=== PATIENT | female | born 1945 | race Caucasian/White ===

== ENCOUNTER → 2017-02-03 | Outpatient (CLI) | payer MEDICARE ==
[~2017-02-03] MED LIST: ADV500INH INH; ASPI1TAB PO; ATOR40TA PO; CALC600T27 PO; CITA20TA4 PO; FELO5TAB3 PO; FOLI1TAB2 PO; HYDR25TAB PO; INSULANT SC; LEVO25TA5 PO; LOSA100T37 PO; PROA1AER INH; RANI150C PO; VICT18IN SC
[2017-02-03 11:09] LABS: ALBUMIN 3.4 GM/DL (3.2-5.2); ALBUMIN/GLOBULIN RATIO 0.94 (1.00-1.93); ALKALINE PHOSPHATASE 56 U/L (45-117); ALT/SGPT 19 U/L (12-78); ANION GAP 10 MEQ/L (8-16); AST/SGOT 15 U/L (15-37); BILIRUBIN,TOTAL 0.4 MG/DL (0.2-1.0); BLOOD UREA NITROGEN 20 MG/DL (7-18); CALCIUM LEVEL 9.2 MG/DL (8.8-10.2); CARBON DIOXIDE LEVEL 27 MEQ/L (21-32); CHLORIDE LEVEL 102 MEQ/L (98-107); CREATININE FOR GFR 0.78 MG/DL (0.55-1.02); FREE T4 0.97 NG/DL (0.76-1.46); GLOMERULAR FILTRATION RATE > 60.0 (>39); GLUCOSE, FASTING 58 MG/DL (83-110); POTASSIUM SERUM 4.4 MEQ/L (3.5-5.1); SODIUM LEVEL 139 MEQ/L (136-145)
== END ==
LOC: M LAB 09:48
PROVIDERS: ATTEND Nurse Practitioner Family
DX: E11.9 Type 2 diabetes mellitus without complications (principal); E03.9 Hypothyroidism, unspecified; E55.9 Vitamin D deficiency, unspecified

== ENCOUNTER → 2017-02-12 | Day surgery (SDC) | payer MEDICARE ==
[~2017-02-12] VITALS: Ht 154.9 cm; Wt 122.5 kg
[~2017-02-12] MED LIST changes: +ACETAMINOPHEN 325 MG TAB PO PRN; +ACETYLCHOLINE OPHTH SOLN 1% 2ML As Ordered ONE; +BALANCED SALT IRRIGATION SOLUTION 500ML BAG (FOR OR EYE MACHINE) As Ordered ONE; +CEFUROXIME 1MG/0.1ML INTRACAMERAL INJ As Ordered ONE; +CYCLOPENTOLATE 2% OPHTH SOLN OS ONE; +D5W/0.2% SODIUM CHLORIDE 250 ML IV SCH; +HEALON DUET (HEALON 10MG/ML 0.55ML & HEALON ENDOCOAT 30MG/ML 0.85ML) As Ordered ONE; +KETOROLAC 0.5% OPHTH SOLN OS ONE; +LIDOCAINE 1% SDV 5 ML VIAL As Ordered ONE; +LIDOCAINE 4% INJ 5 ML AMP OU ONE; +MIDAZOLAM INJ 2 MG/2 ML VIAL (J2250) As Ordered ONE; +OFLOXACIN 0.3 % (OCUFLOX) OPTH SOL 5ML OS ONE; +PHENYLEPHRINE 2.5% OPHTH SOL 2ML OS ONE; +POVIDONE-IODINE 5% OPHTH PREP SOL 30ML As Ordered ONE; +PROPARACAINE 0.5% OPHTH SOL 15ML OS PRN; +TRIMETHOBENZAMIDE 300 MG CAP PO PRN; +TROPICAMIDE 1% OPHTH SOLN 2 ML OS ONE; +fentaNYL 100 MCG/2 ML INJECTION (J3010) As Ordered ONE
--- NOTE | 2017-02-12 11:45 | RO ---
DATE OF PROCEDURE: 02/12/2017 PREPROCEDURE DIAGNOSIS: Age related nuclear cataract left eye. POSTPROCEDURE DIAGNOSIS: Age related nuclear cataract left eye. PROCEDURE: Phacoemulsification and posterior chamber intraocular lens implantation left eye. The lens used was [id number], 21.5 Diopter. SURGEON: Kath Browning MD PROPERTY AND EQUIPMENT CLERK: ANESTHESIA: Topical with sedation. DESCRIPTION OF PROCEDURE: The patient was prepped and draped in the usual fashion. A lid speculum was placed between the lids. The eye was fixated. A stab incision was made to the anterior chamber, and 1% non-preserved lidocaine was instilled. Then, viscoelastic was instilled. The eye was re-fixated. A 2.75 mm sapphire keratome was used to make a clear corneal temporal limbal incision. Capsulorrhexis was begun with a 30-gauge bent needle and then carried out in a circular fashion with capsulorrhexis forceps. The lens was hydrodissected, and then the phacoemulsification unit was used to make a groove in the nucleus in two meridians. The nucleus was then cracked into four quadrants. Each quadrant was removed with the phacoemulsification unit. Any remaining cortex was removed with the irrigation and aspiration (I and A) unit. Capsular bag was refilled with viscoelastic. A posterior chamber intraocular lens was placed in the capsular bag without difficulty. Any remaining viscoelastic was removed with the I and A unit. The wound was hydrated, and Miochol and cefuroxime were instilled into the anterior chamber. The patient tolerated the procedure well and went to the recovery room in stable condition.
[2017-02-12 12:15] VITALS: BP 128/59
== END | disposition home or self-care (01) ==
LOC: M SDC 08:54
PROVIDERS: ATTEND Ophthalmology
DX: H25.12 Age-related nuclear cataract, left eye (principal); I25.2 Old myocardial infarction; I10 Essential (primary) hypertension; E78.2 Mixed hyperlipidemia; E11.9 Type 2 diabetes mellitus without complications; E03.9 Hypothyroidism, unspecified; R06.02 Shortness of breath; J43.9 Emphysema, unspecified; M15.9 Polyosteoarthritis, unspecified; K21.9 Gastro-esophageal reflux disease without esophagitis; J45.909 Unspecified asthma, uncomplicated; Z90.710 Acquired absence of both cervix and uterus; Z87.891 Personal history of nicotine dependence; Z88.2 Allergy status to sulfonamides; Z79.899 Other long term (current) drug therapy; Z79.82 Long term (current) use of aspirin
CPT/HCPCS: 66984; J2250; J3010; V2632

== ENCOUNTER → 2017-04-02 | Day surgery (SDC) | payer MEDICARE, MEDICAID ==
[~2017-04-02] VITALS: Ht 154.9 cm; Wt 119.3 kg
[~2017-04-02] MED LIST changes: +ACETYLCHOLINE OPHTH SOLN 1% 2ML (MIOCHOL-E) As Ordered ONE; -ACETYLCHOLINE OPHTH SOLN 1% 2ML As Ordered ONE; -BALANCED SALT IRRIGATION SOLUTION 500ML BAG (FOR OR EYE MACHINE) As Ordered ONE; +CYCLOPENTOLATE 2% OPHTH SOLN 2ML BTL OD ONE; -CYCLOPENTOLATE 2% OPHTH SOLN OS ONE; -D5W/0.2% SODIUM CHLORIDE 250 ML IV SCH; +GABA-282 PO; +KETOROLAC 0.5% OPHTH SOLN OD ONE; -KETOROLAC 0.5% OPHTH SOLN OS ONE; +LR 500 ML IV SCH; +OFLOXACIN 0.3 % (OCUFLOX) OPTH SOL 5ML OD ONE; -OFLOXACIN 0.3 % (OCUFLOX) OPTH SOL 5ML OS ONE; +PHENYLEPHRINE 2.5% OPHTH SOL 2ML OD ONE; -PHENYLEPHRINE 2.5% OPHTH SOL 2ML OS ONE; +PROPARACAINE 0.5% OPHTH SOL 15ML OD PRN; -PROPARACAINE 0.5% OPHTH SOL 15ML OS PRN; +TOUJ1.2I SC; -TROPICAMIDE 1% OPHTH SOLN 2 ML OS ONE; +TROPICAMIDE 1% OPHTH SOLN 2ML OD ONE
--- NOTE | 2017-04-02 13:27 | RO ---
DATE OF PROCEDURE: 04/02/2017 PREPROCEDURE DIAGNOSIS: Age related nuclear cataract, right eye. POSTPROCEDURE DIAGNOSIS: Age related nuclear cataract, right eye. PROCEDURE: Phacoemulsification and posterior chamber intraocular lens implantation, right eye. Lens used was a [id number], 22.0 diopter. SURGEON: Kath Browning MD OFFICE CLINICIAN: ANESTHESIA: Topical with sedation. DESCRIPTION OF PROCEDURE: The patient was prepped and draped in the usual fashion. A lid speculum was placed between the lids. The eye was fixated. A stab incision was made to the anterior chamber, and 1% non-preserved lidocaine was instilled. Then, viscoelastic was instilled. The eye was re-fixated. A 2.75 mm sapphire keratome was used to make a clear corneal temporal limbal incision. Capsulorrhexis was begun with a 30-gauge bent needle and then carried out in a circular fashion with capsulorrhexis forceps. The lens was hydrodissected, and then the phacoemulsification unit was used to make a groove in the nucleus in two meridians. The nucleus was then cracked into four quadrants. Each quadrant was removed with the phacoemulsification unit. Any remaining cortex was removed with the irrigation and aspiration (I and A) unit. Capsular bag was refilled with viscoelastic. A posterior chamber intraocular lens was placed in the capsular bag without difficulty. Any remaining viscoelastic was removed with the I and A unit. The wound was hydrated, and Miochol and cefuroxime were instilled into the anterior chamber. The patient tolerated the procedure well and went to the recovery room in stable condition.
[2017-04-02 13:40] VITALS: BP 136/93
== END | disposition home or self-care (01) ==
LOC: M SDC 11:28
PROVIDERS: ATTEND Ophthalmology
DX: H25.11 Age-related nuclear cataract, right eye (principal); I25.10 Atherosclerotic heart disease of native coronary artery without angina pectoris; J44.9 Chronic obstructive pulmonary disease, unspecified; E78.5 Hyperlipidemia, unspecified; I10 Essential (primary) hypertension; F41.1 Generalized anxiety disorder; R35.0 Frequency of micturition; M50.220 Other cervical disc displacement, mid-cervical region, unspecified level; M51.34 Other intervertebral disc degeneration, thoracic region; M51.37 Other intervertebral disc degeneration, lumbosacral region; M15.0 Primary generalized (osteo)arthritis; E03.9 Hypothyroidism, unspecified; E55.9 Vitamin D deficiency, unspecified; E66.01 Morbid (severe) obesity due to excess calories; I25.2 Old myocardial infarction; E11.40 Type 2 diabetes mellitus with diabetic neuropathy, unspecified; Z88.2 Allergy status to sulfonamides; Z79.899 Other long term (current) drug therapy; Z79.4 Long term (current) use of insulin; Z79.82 Long term (current) use of aspirin; Z90.710 Acquired absence of both cervix and uterus
CPT/HCPCS: 66984; J2250; J3010; V2632

== ENCOUNTER → 2017-04-15 | Outpatient (CLI) | payer MEDICARE, MEDICAID ==
[~2017-04-15] MED LIST changes: -ACETAMINOPHEN 325 MG TAB PO PRN; -ACETYLCHOLINE OPHTH SOLN 1% 2ML (MIOCHOL-E) As Ordered ONE; -ATOR40TA PO; +ATOR40TA75 PO; -CEFUROXIME 1MG/0.1ML INTRACAMERAL INJ As Ordered ONE; -CYCLOPENTOLATE 2% OPHTH SOLN 2ML BTL OD ONE; +FELO5TAB PO; -FELO5TAB3 PO; -FOLI1TAB2 PO; +FOLI1TAB4 PO; -HEALON DUET (HEALON 10MG/ML 0.55ML & HEALON ENDOCOAT 30MG/ML 0.85ML) As Ordered ONE; -KETOROLAC 0.5% OPHTH SOLN OD ONE; -LIDOCAINE 1% SDV 5 ML VIAL As Ordered ONE; -LIDOCAINE 4% INJ 5 ML AMP OU ONE; -LOSA100T37 PO; +LOSA100T5 PO; -LR 500 ML IV SCH; -MIDAZOLAM INJ 2 MG/2 ML VIAL (J2250) As Ordered ONE; -OFLOXACIN 0.3 % (OCUFLOX) OPTH SOL 5ML OD ONE; -PHENYLEPHRINE 2.5% OPHTH SOL 2ML OD ONE; -POVIDONE-IODINE 5% OPHTH PREP SOL 30ML As Ordered ONE; -PROA1AER INH; +PROAAER10 INH; -PROPARACAINE 0.5% OPHTH SOL 15ML OD PRN; -TRIMETHOBENZAMIDE 300 MG CAP PO PRN; -TROPICAMIDE 1% OPHTH SOLN 2ML OD ONE; -fentaNYL 100 MCG/2 ML INJECTION (J3010) As Ordered ONE
--- NOTE | 2017-04-15 16:11 | REP ---
Left lower extremity Duplex Doppler venous ultrasound: Real time compression and duplex Doppler interrogation of the left lower extremity deep venous system is performed. The left common femoral, superficial femoral and popliteal veins are fully compressible with transducer pressure and demonstrate normal spontaneous and phasic flow, without evidence of deep venous thrombosis. Impression: No evidence of deep venous thrombosis of the left lower extremity femoral popliteal venous system. Signed by Michael Blandon MD 04/15/2017 04:02 P
--- NOTE | 2017-04-16 03:09 | REP ---
Clinical: Chest pain and lower extremity edema . Comparison: 12/27/2009 . Technique: PA and lateral. Findings: The mediastinum and cardiac silhouette are within normal limits. Evidence of prior sternotomy and CABG noted. The lung moore are clear and without acute consolidation, effusion, or pneumothorax. The skeletal structures are intact and normal. Impression: 1. No acute cardiopulmonary process. Signed by Ricki Baldwin MD 04/16/2017 03:00 A
== END ==
LOC: M RAD 15:33
PROVIDERS: ATTEND Nurse Practitioner Family
DX: R60.0 Localized edema (principal); R06.02 Shortness of breath; E11.49 Type 2 diabetes mellitus with other diabetic neurological complication; Z79.4 Long term (current) use of insulin; Z79.82 Long term (current) use of aspirin; Z79.899 Other long term (current) drug therapy
CPT/HCPCS: 71020; 82948; 93971; G0463

== ENCOUNTER → 2017-05-06 | Outpatient (CLI) | payer MEDICARE, MEDICAID ==
--- NOTE | 2017-05-06 13:46 | REPMRS ---
Patient History The patient states she had a clinical breast exam in 04/2017. Family history of prostate cancer in father at age 75. Digital Woman Screen Mammo: May 06, 2017 - Exam #: [id number] Bilateral CC and MLO view(s) were taken. Technologist: Kath Kauffman Technologist Prior study comparison: November 22, 2014, digital woman screen mammo performed at [facility]. December 07, 2013, bilateral digital mammo screening bilat, performed at [facility]. FINDINGS: There are scattered fibroglandular densities. There has been no change in the appearance of the mammogram from the prior studies. There is a mild amount of residual fibroglandular tissue which is fairly symmetric. There is no interval development of dominant mass, architectural distortion, or clustered microcalcification suggestive of malignancy. ASSESSMENT: BI-RADS/ACR category 1 mammogram. Negative. Recommendation Routine screening mammogram in 1 year (for women over age 40). This mammogram was interpreted with the aid of an FDA-approved computer-aided dectection system. Electronically Signed By: Michael Blandon MD 05/06/17 [id number]
== END ==
LOC: M WHC 11:14
PROVIDERS: ATTEND Nurse Practitioner Women's Health
DX: Z12.31 Encounter for screening mammogram for malignant neoplasm of breast (principal)
CPT/HCPCS: G0202; G0463

== ENCOUNTER → 2017-05-13 | Outpatient (CLI) | payer MEDICARE, MEDICAID ==
[2017-05-13 10:53] LABS: ALBUMIN 3.6 GM/DL (3.2-5.2); ALBUMIN/GLOBULIN RATIO 0.92 (1.00-1.93); ALKALINE PHOSPHATASE 58 U/L (45-117); ALT/SGPT 21 U/L (12-78); ANION GAP 8 MEQ/L (8-16); AST/SGOT 12 U/L (15-37); BILIRUBIN,TOTAL 0.5 MG/DL (0.2-1.0); BLOOD UREA NITROGEN 21 MG/DL (7-18); CALCIUM LEVEL 9.1 MG/DL (8.8-10.2); CARBON DIOXIDE LEVEL 27 MEQ/L (21-32); CHLORIDE LEVEL 102 MEQ/L (98-107); CREATININE FOR GFR 0.86 MG/DL (0.55-1.02); GLOMERULAR FILTRATION RATE > 60.0 (>39); GLUCOSE, FASTING 70 MG/DL (83-110); POTASSIUM SERUM 4.1 MEQ/L (3.5-5.1); SODIUM LEVEL 137 MEQ/L (136-145); TOTAL PROTEIN 7.5 GM/DL (6.4-8.2)
== END ==
LOC: M LAB 09:50
PROVIDERS: ATTEND Nurse Practitioner Family
DX: E11.8 Type 2 diabetes mellitus with unspecified complications (principal)

== ENCOUNTER → 2017-08-20 | Outpatient (CLI) | payer MEDICARE, MEDICAID ==
[2017-08-20 10:38] LABS: ALBUMIN 3.4 GM/DL (3.2-5.2); ALBUMIN/GLOBULIN RATIO 0.94 (1.00-1.93); ALKALINE PHOSPHATASE 47 U/L (45-117); ALT/SGPT 25 U/L (12-78); ANION GAP 9 MEQ/L (8-16); AST/SGOT 15 U/L (15-37); BILIRUBIN,TOTAL 0.4 MG/DL (0.2-1.0); BLOOD UREA NITROGEN 20 MG/DL (7-18); CALCIUM LEVEL 9.1 MG/DL (8.8-10.2); CARBON DIOXIDE LEVEL 27 MEQ/L (21-32); CHLORIDE LEVEL 100 MEQ/L (98-107); CHOLESTEROL LEVEL 120 MG/DL (<200); CREATININE FOR GFR 0.88 MG/DL (0.55-1.02); FREE T4 1.02 NG/DL (0.76-1.46); GLOMERULAR FILTRATION RATE > 60.0 (>39); GLUCOSE, FASTING 160 MG/DL (83-110); POTASSIUM SERUM 4.1 MEQ/L (3.5-5.1); SODIUM LEVEL 136 MEQ/L (136-145); TRIGLYCERIDES LEVEL 136 MG/DL (<150)
== END ==
LOC: M LAB 09:17
PROVIDERS: ATTEND Nurse Practitioner Family
DX: E11.9 Type 2 diabetes mellitus without complications (principal)

== ENCOUNTER → 2018-01-30 | Outpatient (REF) | payer MEDICARE, MEDICAID | LOC: M SFHCPLAZ 13:10 | DX: R30.0 Dysuria (principal) | CPT/HCPCS: 87086 ==

== ENCOUNTER → 2018-02-26 | Outpatient (CLI) | payer MEDICARE, MEDICAID ==
[2018-02-26 10:16] LABS: ESTIMATED AVERAGE GLUCOSE 166 MG/DL (60-110); HEMOGLOBIN A1c 7.4 %
[2018-02-26 10:32] LABS: ALBUMIN 3.4 GM/DL (3.2-5.2); ALBUMIN/GLOBULIN RATIO 0.89 (1.00-1.93); ALKALINE PHOSPHATASE 46 U/L (45-117); ALT/SGPT 19 U/L (12-78); ANION GAP 6 MEQ/L (8-16); AST/SGOT 15 U/L (7-37); BILIRUBIN,TOTAL 0.3 MG/DL (0.2-1.0); BLOOD UREA NITROGEN 19 MG/DL (7-18); CARBON DIOXIDE LEVEL 30 MEQ/L (21-32); CHLORIDE LEVEL 104 MEQ/L (98-107); CREATININE FOR GFR 0.84 MG/DL (0.55-1.30); GLOMERULAR FILTRATION RATE > 60.0 (>39); GLUCOSE, FASTING 99 MG/DL (70-100); POTASSIUM SERUM 4.1 MEQ/L (3.5-5.1); SODIUM LEVEL 140 MEQ/L (136-145); TOTAL PROTEIN 7.2 GM/DL (6.4-8.2)
[2018-02-26 10:39] LABS: TOTAL 25(OH) VITAMIN D 55.2 NG/ML (30.0-100.0)
== END ==
LOC: M LAB 09:24
DX: E55.9 Vitamin D deficiency, unspecified (principal); E11.8 Type 2 diabetes mellitus with unspecified complications
CPT/HCPCS: 80053

== ENCOUNTER → 2018-05-07 | Outpatient (CLI) | payer MEDICARE, MEDICAID | LOC: M RAD 10:35 | DX: Z12.31 Encounter for screening mammogram for malignant neoplasm of breast (principal) | CPT/HCPCS: 77067 ==

== ENCOUNTER → 2018-05-27 | Outpatient (CLI) | payer MEDICARE, MEDICAID ==
[2018-05-27 10:38] LABS: ESTIMATED AVERAGE GLUCOSE 177 MG/DL (60-110); HEMOGLOBIN A1c 7.8 %
[2018-05-27 10:40] LABS: MALB URINE SIEMENS 7.7 MG/L; MAU/CREAT RATIO 4.1 MCG/MG (0.0-30.0)
[2018-05-27 10:42] LABS: ALBUMIN 3.5 GM/DL (3.2-5.2); ALBUMIN/GLOBULIN RATIO 0.92 (1.00-1.93); ALKALINE PHOSPHATASE 46 U/L (45-117); ALT/SGPT 19 U/L (12-78); ANION GAP 11 MEQ/L (8-16); AST/SGOT 12 U/L (7-37); BILIRUBIN,TOTAL 0.4 MG/DL (0.2-1.0); BLOOD UREA NITROGEN 19 MG/DL (7-18); CALCIUM LEVEL 9.1 MG/DL (8.8-10.2); CARBON DIOXIDE LEVEL 27 MEQ/L (21-32); CHLORIDE LEVEL 101 MEQ/L (98-107); CHOLESTEROL LEVEL 112 MG/DL (<200); CHOLESTEROL RISK RATIO 2.382 (<5); CREATININE FOR GFR 0.88 MG/DL (0.55-1.30); FREE T4 0.89 NG/DL (0.76-1.46); GLOMERULAR FILTRATION RATE > 60.0 (>39); GLUCOSE, FASTING 120 MG/DL (70-100); HDL CHOLESTEROL 47 MG/DL (>40); LDL CHOLESTEROL 37.6 MG/DL (<100); NON-HDL-C 65 MG/DL; POTASSIUM SERUM 4.1 MEQ/L (3.5-5.1); SODIUM LEVEL 139 MEQ/L (136-145); TOTAL PROTEIN 7.3 GM/DL (6.4-8.2); TRIGLYCERIDES LEVEL 137 MG/DL (<150)
[2018-05-27 10:54] LABS: TOTAL 25(OH) VITAMIN D 54.6 NG/ML (30.0-100.0)
== END ==
LOC: M LAB 09:12
DX: E03.9 Hypothyroidism, unspecified (principal); E78.2 Mixed hyperlipidemia; E55.9 Vitamin D deficiency, unspecified; Z79.899 Other long term (current) drug therapy
CPT/HCPCS: 84443

== ENCOUNTER → 2018-06-02 | Outpatient (REF) | payer MEDICARE, MEDICAID | LOC: M SFHCPLAZ 12:11 | DX: J02.9 Acute pharyngitis, unspecified (principal) ==

== ENCOUNTER → 2018-08-26 | Outpatient (CLI) | payer MEDICARE, MEDICAID ==
[2018-08-26 11:24] LABS: ALBUMIN 3.6 GM/DL (3.2-5.2); ALKALINE PHOSPHATASE 50 U/L (45-117); ALT/SGPT 22 U/L (12-78); ANION GAP 8 MEQ/L (8-16); AST/SGOT 17 U/L (7-37); BILIRUBIN,TOTAL 0.5 MG/DL (0.2-1.0); BLOOD UREA NITROGEN 22 MG/DL (7-18); CALCIUM LEVEL 9.6 MG/DL (8.8-10.2); CARBON DIOXIDE LEVEL 28 MEQ/L (21-32); CHLORIDE LEVEL 102 MEQ/L (98-107); CREATININE FOR GFR 0.78 MG/DL (0.55-1.30); FREE T4 0.97 NG/DL (0.76-1.46); GLOMERULAR FILTRATION RATE > 60.0 (>39); GLUCOSE, FASTING 131 MG/DL (70-100); POTASSIUM SERUM 4.5 MEQ/L (3.5-5.1); SODIUM LEVEL 138 MEQ/L (136-145); TOTAL PROTEIN 7.2 GM/DL (6.4-8.2)
[2018-08-26 11:25] LABS: TOTAL 25(OH) VITAMIN D 38.3 NG/ML (30.0-100.0)
[2018-08-26 11:26] LABS: ESTIMATED AVERAGE GLUCOSE 148 MG/DL (60-110); HEMOGLOBIN A1c 6.8 %
== END ==
LOC: M LAB 10:00
DX: E11.8 Type 2 diabetes mellitus with unspecified complications (principal); E03.9 Hypothyroidism, unspecified; E55.9 Vitamin D deficiency, unspecified
CPT/HCPCS: 84443

== ENCOUNTER → 2019-03-09 | Outpatient (CLI) | payer MEDICARE, MEDICAID ==
[~2019-03-09] MED LIST changes: -ASPI1TAB PO; +ASPI81TA26 PO; -CITA20TA4 PO; +CITA20TA6 PO; +FOLI1TAB11 PO; -FOLI1TAB4 PO; -GABA-282 PO; +GABA-843 PO
--- NOTE | 2019-03-17 18:46 | REP ---
ULTRASOUND RIGHT POPLITEAL FOSSA: Real time ultrasound evaluation of the right popliteal fossa is performed at the site of a stated palpable lump. No cystic or solid nodule is seen. There is no evidence of Olmstead's cyst. IMPRESSION: Negative right popliteal ultrasound. Electronically Signed by Michael Blandon MD 03/18/2019 12:39 P
== END ==
LOC: M RAD 14:00
PROVIDERS: ATTEND Nurse Practitioner Family
DX: M71.21 Synovial cyst of popliteal space [Baker], right knee (principal)

== ENCOUNTER → 2019-04-29 | Outpatient (CLI) | payer MEDICARE, MEDICAID ==
[2019-04-29 10:34] LABS: ALBUMIN 3.4 GM/DL (3.2-5.2); ALT/SGPT 19 U/L (12-78); BILIRUBIN,TOTAL 0.5 MG/DL (0.2-1.0); BLOOD UREA NITROGEN 19 MG/DL (7-18); CALCIUM LEVEL 9.2 MG/DL (8.8-10.2); CARBON DIOXIDE LEVEL 27 MEQ/L (21-32); CHLORIDE LEVEL 104 MEQ/L (98-107); CHOLESTEROL LEVEL 97 MG/DL (<200); CREATININE FOR GFR 0.96 MG/DL (0.55-1.30); FREE T4 0.94 NG/DL (0.76-1.46); GLOMERULAR FILTRATION RATE > 60.0 (>39); GLUCOSE, FASTING 80 MG/DL (70-100); HDL CHOLESTEROL 61 MG/DL (>40); LDL CHOLESTEROL 25 MG/DL (<100); NON-HDL-C 36 MG/DL; POTASSIUM SERUM 4.3 MEQ/L (3.5-5.1); SODIUM LEVEL 140 MEQ/L (136-145); TRIGLYCERIDES LEVEL 53 MG/DL (<150)
[2019-04-29 10:39] LABS: MALB URINE SIEMENS 10.1 MG/L; MAU/CREAT RATIO 5.1 MCG/MG (0.0-30.0)
[2019-04-30 10:03] LABS: TOTAL 25(OH) VITAMIN D 44.2 NG/ML (30.0-100.0)
== END ==
LOC: M LAB 09:18
PROVIDERS: ATTEND Nurse Practitioner Family
DX: E11.49 Type 2 diabetes mellitus with other diabetic neurological complication (principal); E03.9 Hypothyroidism, unspecified; E55.9 Vitamin D deficiency, unspecified

== ENCOUNTER → 2019-08-10 | Outpatient (CLI) | payer MEDICARE, MEDICAID ==
[2019-08-10 11:23] LABS: HEMOGLOBIN A1c 9.4 %
[2019-08-10 11:33] LABS: ALBUMIN 3.3 GM/DL (3.2-5.2); BILIRUBIN,TOTAL 0.6 MG/DL (0.2-1.0); CALCIUM LEVEL 9.5 MG/DL (8.8-10.2); CHOLESTEROL RISK RATIO 2.464 (<5); FREE T4 0.89 NG/DL (0.76-1.46); GLOMERULAR FILTRATION RATE 57.7 (>39); POTASSIUM SERUM 4.5 MEQ/L (3.5-5.1); THYROID STIMULATING HORMONE 2.38 uIU/ML (0.358-3.740); TOTAL PROTEIN 6.8 GM/DL (6.4-8.2)
[2019-08-10 11:36] LABS: TOTAL 25(OH) VITAMIN D 46.1 NG/ML (30.0-100.0)
[2019-08-10 15:14] LABS: MALB URINE SIEMENS 8.2 MG/L; MAU/CREAT RATIO 3.6 MCG/MG (0.0-30.0)
== END ==
LOC: M LAB 10:06
PROVIDERS: ATTEND Nurse Practitioner Family
DX: E11.8 Type 2 diabetes mellitus with unspecified complications (principal); E55.9 Vitamin D deficiency, unspecified; E78.2 Mixed hyperlipidemia; E11.49 Type 2 diabetes mellitus with other diabetic neurological complication; E03.9 Hypothyroidism, unspecified; Z79.899 Other long term (current) drug therapy; Z79.82 Long term (current) use of aspirin

== ENCOUNTER 2019-09-26 14:08 | Emergency (ER) | payer MEDICARE, MEDICAID ==
[~2019-09-26] VITALS: Ht 154.9 cm; Wt 127.9 kg
[2019-09-26] MEDS ORDERED: FLUT1BLS2 PO (14:34)
[2019-09-26] MEDS ORDERED: VALS160T3 PO (14:35)
[2019-09-26] MEDS ORDERED: NS 1,000 ML IV SCH (15:00)
[2019-09-26] MEDS ORDERED: ceFAZolin SOD 1 GM in D5W MINI-BAG PLUS 50 ML IV ONE (15:15)
[2019-09-26 15:25] LABS: BASO % 0.5 % (0.0-1.0); EOS # 0.3 10^3/uL (0.0-0.5); EOS % 3.5 % (0.0-3.0); HEMATOCRIT 39.3 % (36.0-47.0); HEMOGLOBIN 12.5 g/dl (12.0-15.5); LYMPH # 2.4 10^3/uL (1.5-5.0); LYMPH % 26.7 % (24.0-44.0); MEAN CORPUSCULAR HEMOGLOBIN 30.1 pg (27.0-33.0); MEAN CORPUSCULAR HGB CONC 31.8 g/dl (32.0-36.5); MEAN CORPUSCULAR VOLUME 94.7 fl (80.0-96.0); MONO # 0.6 10^3/uL (0.0-0.8); MONO % 7.1 % (0.0-5.0); NEUTROPHILS # 5.5 10^3/uL (1.5-8.5); NEUTROPHILS % 61.7 % (36.0-66.0); PLATELET COUNT, AUTOMATED 550 10^3/uL (150-450); RED BLOOD COUNT 4.15 10^6/uL (4.00-5.40); WHITE BLOOD COUNT 8.9 10^3/uL (4.0-10.0)
[2019-09-26 15:44] LABS: ERYTHROCYTE SEDIMENTATION RATE 42 mm/hr (0-30)
[2019-09-26 15:55] LABS: ALBUMIN 3.4 GM/DL (3.2-5.2); ALT/SGPT 19 U/L (12-78); BILIRUBIN,DIRECT 0.1 MG/DL (0.0-0.2); BILIRUBIN,TOTAL 0.4 MG/DL (0.2-1.0); BLOOD UREA NITROGEN 14 MG/DL (7-18); C REACTIVE PROTEIN QUANTITATIV 0.61 MG/DL (0.00-0.30); CALCIUM LEVEL 9.1 MG/DL (8.8-10.2); CARBON DIOXIDE LEVEL 28 MEQ/L (21-32); CHLORIDE LEVEL 102 MEQ/L (98-107); CREATININE FOR GFR 0.91 MG/DL (0.55-1.30); GLOMERULAR FILTRATION RATE > 60.0 (>39); GLUCOSE, FASTING 135 MG/DL (70-100); POTASSIUM SERUM 4.6 MEQ/L (3.5-5.1); SODIUM LEVEL 139 MEQ/L (136-145); TOTAL PROTEIN 7.2 GM/DL (6.4-8.2)
--- NOTE | 2019-09-26 16:02 | REP ---
Clinical: Right lower extremity pain . Technique: Blandon scale and color Doppler evaluation using linear high frequency transducer. Findings: Ultrasound examination of the right wrist lower extremity deep venous structures from the common femoral vein to the popliteal vein demonstrates normal compressibility flow and wave patterns in response to respiration and augmentation. There is no evidence for deep venous thrombosis. Impression: No evidence for deep venous thrombosis. Electronically Signed by Ricki Baldwin MD 09/26/2019 03:54 P
[2019-09-26] MEDS ORDERED: CLINDAMYCIN 150 MG CAP PO ONE (16:15)
[2019-09-26] MEDS ORDERED: CLIN150C14 PO (16:18)
[2019-09-26] MEDS ORDERED: ACET-683 PO (16:18)
[2019-09-26] MEDS ORDERED: KETOROLAC 30 MG/ML VIAL (J1885) IV ONE (16:30)
[2019-09-26 17:02] VITALS: BP 151/100
== END 2019-09-26 17:03 | disposition home or self-care (01) ==
LOC: M ED 14:08
DX: L03.115 Cellulitis of right lower limb (principal); D64.9 Anemia, unspecified; E11.40 Type 2 diabetes mellitus with diabetic neuropathy, unspecified; I10 Essential (primary) hypertension; J44.9 Chronic obstructive pulmonary disease, unspecified; N39.41 Urge incontinence; Z79.51 Long term (current) use of inhaled steroids; Z79.82 Long term (current) use of aspirin; Z79.4 Long term (current) use of insulin; Z87.891 Personal history of nicotine dependence; Z88.2 Allergy status to sulfonamides; Z95.1 Presence of aortocoronary bypass graft
CPT/HCPCS: 80048; 80076; 81001; 83605; 85025; 85652; 86140; 87040; 87077; 87186; 93971; 96365; 96375; 99283; J0690; J1885

== ENCOUNTER → 2019-11-03 | Outpatient (CLI) | payer MEDICARE ==
[~2019-11-03] MED LIST changes: +ACET-683 PO; +CLIN150C14 PO; -FELO5TAB PO; +FELO5TAB26 PO; +FLUT1BLS2 PO; +VALS160T3 PO
[2019-11-03 10:42] LABS: ALBUMIN 3.5 GM/DL (3.2-5.2); ALT/SGPT 19 U/L (12-78); BILIRUBIN,TOTAL 0.9 MG/DL (0.2-1.0); BLOOD UREA NITROGEN 22 MG/DL (7-18); CALCIUM LEVEL 9.3 MG/DL (8.8-10.2); CARBON DIOXIDE LEVEL 28 MEQ/L (21-32); CHLORIDE LEVEL 102 MEQ/L (98-107); CREATININE FOR GFR 0.86 MG/DL (0.55-1.30); GLOMERULAR FILTRATION RATE > 60.0 (>39); GLUCOSE, FASTING 80 MG/DL (70-100); POTASSIUM SERUM 4.4 MEQ/L (3.5-5.1); SODIUM LEVEL 138 MEQ/L (136-145); TOTAL PROTEIN 6.9 GM/DL (6.4-8.2)
[2019-11-03 10:56] LABS: HEMOGLOBIN A1c 8.7 %
== END ==
LOC: M LAB 09:04
PROVIDERS: ATTEND Nurse Practitioner Family
DX: E11.8 Type 2 diabetes mellitus with unspecified complications (principal)

== ENCOUNTER → 2020-05-02 | Outpatient (CLI) | payer MEDICARE, MEDICAID ==
[~2020-05-02] MED LIST changes: +CIPR500T3 PO; +CLEO300C2 PO; +FURO20TA2 PO; +FURO40TA2 PO; +OMEP-218 PO
[2020-05-02 11:11] LABS: ALBUMIN 3.4 GM/DL (3.2-5.2); BILIRUBIN,TOTAL 0.6 MG/DL (0.2-1.0); CALCIUM LEVEL 9.1 MG/DL (8.8-10.2); CREATININE FOR GFR 0.97 MG/DL (0.55-1.30); FREE T4 1.05 NG/DL (0.76-1.46); GLOMERULAR FILTRATION RATE 59.6 (>39); POTASSIUM SERUM 4.6 MEQ/L (3.5-5.1); THYROID STIMULATING HORMONE 2.14 uIU/ML (0.358-3.740); TOTAL PROTEIN 7.2 GM/DL (6.4-8.2)
[2020-05-02 11:16] LABS: MALB URINE SIEMENS 29.5 MG/L
== END ==
LOC: M LAB 09:33
PROVIDERS: ATTEND Nurse Practitioner Family
DX: E11.8 Type 2 diabetes mellitus with unspecified complications (principal); E03.9 Hypothyroidism, unspecified

== ENCOUNTER 2020-06-20 10:43 | Emergency (ER) | payer MEDICARE, MEDICAID ==
[~2020-06-20] VITALS: Ht 154.9 cm; Wt 120.1 kg
[~2020-06-20 10:43] MED LIST changes: -CIPR500T3 PO; -CLEO300C2 PO; -FURO20TA2 PO; -FURO40TA2 PO; -OMEP-218 PO
[2020-06-20] MEDS ORDERED: OMEP-218 PO (11:18)
[2020-06-20] MEDS ORDERED: HYDR25TAB PO (11:18)
[2020-06-20] MEDS ORDERED: CIPR500T3 PO (11:18)
[2020-06-20] MEDS ORDERED: FURO20TA2 PO (11:18)
[2020-06-20 12:09] LABS: BASO % 0.5 % (0.0-1.0); EOS # 0.3 10^3/uL (0.0-0.5); EOS % 4.3 % (0.0-3.0); HEMATOCRIT 40.8 % (36.0-47.0); HEMOGLOBIN 13.4 g/dl (12.0-15.5); LYMPH # 1.6 10^3/uL (1.5-5.0); LYMPH % 23.9 % (24.0-44.0); MEAN CORPUSCULAR HEMOGLOBIN 29.1 pg (27.0-33.0); MEAN CORPUSCULAR HGB CONC 32.8 g/dl (32.0-36.5); MEAN CORPUSCULAR VOLUME 88.7 fl (80.0-96.0); MONO # 0.5 10^3/uL (0.0-0.8); MONO % 7.4 % (0.0-5.0); NEUTROPHILS # 4.1 10^3/uL (1.5-8.5); NEUTROPHILS % 63.6 % (36.0-66.0); PLATELET COUNT, AUTOMATED 666 10^3/uL (150-450); WHITE BLOOD COUNT 6.5 10^3/uL (4.0-10.0)
--- NOTE | 2020-06-20 12:32 | REPVR ---
PROCEDURE INFORMATION: Exam: US Duplex Left Lower Extremity Veins, Limited Exam date and time: 06/20/2020 12:16 PM Age: 75 years old Clinical indication: Swelling (edema) of limb; Lower extremity, left; Additional info: R/O dvt, swelling TECHNIQUE: Imaging protocol: Real-time Duplex ultrasound of the Left Lower Extremity with 2-D roman scale, color Doppler flow and spectral waveform analysis with image documentation. Limited exam focused on the left lower extremity veins. COMPARISON: US Duplex, Ext,LOWER veins,unilat 09/26/2019 3:42 PM FINDINGS: Limitations: Examination is somewhat limited due to patient body habitus. Left deep veins: Unremarkable. The common femoral, femoral, proximal profunda femoral and popliteal veins are patent without thrombus. Normal Doppler waveforms. Normal compressibility and/or augmentation response. Left superficial veins: Unremarkable. Saphenofemoral junction is patent without thrombus. Soft tissues: Unremarkable. IMPRESSION: No evidence of deep vein thrombosis. Electronically signed by: Ban Salazar On 06/20/2020 12:32:49 PM
[2020-06-20 12:36] LABS: ALBUMIN 3.6 GM/DL (3.2-5.2); BILIRUBIN,DIRECT 0.2 MG/DL (0.0-0.2); BILIRUBIN,TOTAL 0.5 MG/DL (0.2-1.0); C REACTIVE PROTEIN QUANTITATIV 0.58 MG/DL (0.00-0.30); TOTAL PROTEIN 7.1 GM/DL (6.4-8.2)
[2020-06-20 13:05] LABS: ERYTHROCYTE SEDIMENTATION RATE 27 mm/hr (0-30)
[2020-06-20] MEDS ORDERED: CLEO300C2 PO (14:05)
[2020-06-20] MEDS ORDERED: FURO40TA2 PO (14:05)
[2020-06-20 14:16] VITALS: BP 156/72
== END 2020-06-20 14:32 | disposition home or self-care (01) ==
LOC: M ED 10:44
DX: L03.116 Cellulitis of left lower limb (principal); R60.0 Localized edema; E11.9 Type 2 diabetes mellitus without complications; I10 Essential (primary) hypertension; J44.9 Chronic obstructive pulmonary disease, unspecified; I25.2 Old myocardial infarction; E03.9 Hypothyroidism, unspecified; F33.9 Major depressive disorder, recurrent, unspecified; K21.9 Gastro-esophageal reflux disease without esophagitis; D64.9 Anemia, unspecified; Z95.1 Presence of aortocoronary bypass graft; Z79.899 Other long term (current) drug therapy; Z79.82 Long term (current) use of aspirin; Z79.4 Long term (current) use of insulin; Z88.1 Allergy status to other antibiotic agents; Z88.2 Allergy status to sulfonamides; Z87.891 Personal history of nicotine dependence; R06.02 Shortness of breath

== ENCOUNTER → 2020-08-04 | Outpatient (CLI) | payer MEDICARE, MEDICAID ==
[~2020-08-04] MED LIST changes: +CIPR500T3 PO; +CLEO300C2 PO; +FURO20TA2 PO; +FURO40TA2 PO; +OMEP-218 PO
[2020-08-04 11:21] LABS: HEMOGLOBIN A1c 11.4 %
[2020-08-04 11:28] LABS: ALBUMIN 3.3 GM/DL (3.2-5.2); ALT/SGPT 27 U/L (12-78); BILIRUBIN,TOTAL 0.5 MG/DL (0.2-1.0); BLOOD UREA NITROGEN 14 MG/DL (7-18); CALCIUM LEVEL 9.2 MG/DL (8.8-10.2); CARBON DIOXIDE LEVEL 27 MEQ/L (21-32); CHLORIDE LEVEL 104 MEQ/L (98-107); CHOLESTEROL LEVEL 126 MG/DL (<200); CREATININE FOR GFR 0.75 MG/DL (0.55-1.30); GLOMERULAR FILTRATION RATE > 60.0 (>39); GLUCOSE, FASTING 224 MG/DL (70-100); HDL CHOLESTEROL 55 MG/DL (>40); LDL CHOLESTEROL 51 MG/DL (<100); NON-HDL-C 71 MG/DL; POTASSIUM SERUM 4.7 MEQ/L (3.5-5.1); SODIUM LEVEL 136 MEQ/L (136-145); THYROXINE (T4) 8.2 UG/DL (4.5-12.0); TOTAL 25(OH) VITAMIN D 41.8 NG/ML (30.0-100.0); TOTAL PROTEIN 6.9 GM/DL (6.4-8.2); TRIGLYCERIDES LEVEL 102 MG/DL (<150)
[2020-08-04 11:31] LABS: MALB URINE SIEMENS 58.9 MG/L
== END ==
LOC: M LAB 09:41
PROVIDERS: ATTEND Nurse Practitioner Family
DX: E11.49 Type 2 diabetes mellitus with other diabetic neurological complication (principal); E03.9 Hypothyroidism, unspecified; E78.2 Mixed hyperlipidemia; Z79.899 Other long term (current) drug therapy

== ENCOUNTER → 2020-10-30 | Outpatient (CLI) | payer MEDICARE, MEDICAID ==
[2020-10-30 11:09] LABS: ALBUMIN 3.4 GM/DL (3.2-5.2); BILIRUBIN,TOTAL 0.7 MG/DL (0.2-1.0); CALCIUM LEVEL 9.2 MG/DL (8.8-10.2); CREATININE FOR GFR 1.04 MG/DL (0.55-1.30); FREE T4 0.9 NG/DL (0.76-1.46); POTASSIUM SERUM 4.3 MEQ/L (3.5-5.1); THYROID STIMULATING HORMONE 4.16 uIU/ML (0.358-3.740); TOTAL PROTEIN 6.8 GM/DL (6.4-8.2)
[2020-10-30 11:28] LABS: MALB URINE SIEMENS 10.2 MG/L; MAU/CREAT RATIO 4.9 MCG/MG (0.0-30.0)
[2020-10-30 16:56] LABS: HEMOGLOBIN A1c 9.5 %
== END ==
LOC: M LAB 09:47
PROVIDERS: ATTEND Nurse Practitioner Family
DX: E11.49 Type 2 diabetes mellitus with other diabetic neurological complication (principal); E03.9 Hypothyroidism, unspecified

== ENCOUNTER → 2020-12-07 | Outpatient (CLI) | payer MEDICARE, MEDICAID ==
[~2020-12-07] MED LIST changes: +ADV250INH INH; -CLIN150C14 PO; +CLIN150C15 PO; +DITR5TAB PO; +FAMO40TA3 PO; +GABA-282 PO; -GABA-843 PO; +HUMA100I5 SC; +HYDR-3490 PO; -HYDR25TAB PO; +LEVO-84 PO
== END ==
LOC: M LABSMTC 12:12
PROVIDERS: ATTEND Anesthesiology
DX: Z01.812 Encounter for preprocedural laboratory examination (principal); Z20.822 Contact with and (suspected) exposure to COVID-19

== ENCOUNTER 2020-12-12 06:19 | Day surgery (SDC) | payer MEDICARE, MEDICAID ==
[~2020-12-12] VITALS: Ht 154.9 cm; Wt 105.7 kg
--- OUTSIDE RECORDS SUMMARY | 2020-12-12 06:23 | CCD | Continuity of Care Document ---
Author Author Indu CHRISTIANSON PA Organization Unknown Address [address] [facility], [facility] [address] [place] [address] Phone [phone] Care Team Providers Care [employer] Name Role Janice Wilder CIELO AUTM [phone] Problems Active Problems Provider Date Acquired trigger finger Onset: 9 Pure hypercholesterolemia Onset: 015 Essential hypertension Onset: 05/31/2015 Type 2 diabetes mellitus Onset: 05/31/20 15 Social History Type Date Description Comments Sex Unknown ETOH Use Denies alcohol use Tobacco Use Start: Unknown End: Unknown Patient is a former smoker quit 2000 Smoking Status Reviewed: 11/15/20 Patient is a former smoker qu it 2000 Allergies, Adverse Reactions, Alerts Active Allergies Reaction Severity Comments Date sulfa drugs 06/06/2015 Medications Active Medications SIG Qnty Indications Ordering Provide r Date Global Ease Inject Pen Wigg[place] [id number] 32G X 4 mm Misc Use as Directed Subcutaneously Three Times Daily Unknown Onetouch Delica Lancets Fine 30G 3 0G Misc Unknown Onetouch Ultra Blue Strips Unknown Felodipine ER 5mg Tablets ER 24HR Take One Tablet By Mouth Once Daily Unknown Gabapentin 300mg Capsules Take Two Capsules By Mouth AT Bedtime Unknown Oxybutynin Chloride ER 5mg Tablets ER 24HR Unknown Clotrimazole 10mg Joce Dissolve One Joce By Mouth Four Times Daily For 7 Days Unkn own Omeprazole 20mg Capsules DR Take One Capsule By Mouth 30 Minutes Before Morning Meal Unknown Furosemide 20mg Tablets Take One Tablet By Mouth Once Daily Unknown Hydroxyzine HCL 25mg Tablets Take One Tablet By Mouth Every 8 Hours as Needed Unknown Valsartan-Hydrochlorothiazide 160-25mg Tablets Take One Tablet By Mouth Once Daily Unkno wn Famotidine 40mg Tablets Take One Tablet By Mouth Twice Daily Unknown Vitamin D (Ergocalciferol) 1.25mg (43861 Ut) Capsules Take One Capsule By Mouth Every Two Weeks With Food Unknown Humalog Kwikpen 100U nit/ML Solution Pen-Inject Inject Four Units Subcutaneously Once Da radha with Noon meal, May Increase By One Unit Per Week if Fasting Sugar Is Over 140 U nknown Clindamycin HCL 300mg Capsules Take One Capsule By Mouth Three Times Daily Unknown Furosemide 40mg Tablets Take One Tablet By Mouth Once Daily Unknown Ciprofloxacin HCL 500mg Tablets Take One Tablet By Mouth Every Twelve Hours For 15 Days U nknown Cephalexin 500mg Capsules Take One Capsule By Mouth Three Times Daily For 7 Days Unknown Bacitracin (Ophthalmic) 500Unit/GM Ointment Apply To Lower Lid Of Affected Eye Twice Daily For 14 Days Unknown Stemgenttouch Verio w/Device Kit Use as Directed Four Times Daily Unknown Lantus 100Unit/ML Solution use as directed-20u every day Unknown 0 Aspir-[address] Unknown Victoza 18mg/3ML Solution Pen-Inje ct 1.8 mg subcutaneous injection, once daily. maximum daily dose 1.8. please dispense 3 pens Unknown Levothyroxine Sodium 50mcg Tablets 1 by mouth every day Unknown Hydrochlorothiazide 25mg Tablets 1 by mouth every day Unknown Losartan Potassium/Hydrochlorothiazide 100-25mg Tablets 1 by mouth every day Unknown 000 Zantac 150mg/6ML Solution Unknown Celexa 20mg Tablets 1 by mouth every day Unknown Ipratropium [place]/Albuterol Sulfate 0.5-2.5(3)mg/3ML Solution four times a day Unknown Proair HFA 108(90Base) mcg/Act Aer osol as needed Unknown Advair Diskus 250-50mcg/Dose Aeros ol 2 puffs every day Unknown Calcium 600 + D [id number]-Siac Tab lets 1 by mouth every day Unknown Drisdol 30390Vuxl Capsules 1 tab by mouth weekly Unknown Lipitor 40mg Tablets 1 by mouth every day Unknown Folic Acid 1mg Tablets 1 by mouth every day Unknown Tylenol Extra Strength 500mg Table ts as needed Unknown Ranitidine HCL 150mg Tablets Unknown Toujeo Solostar 300U nit/ML Solution Pen-Inject Unknown Calcium Carbonate-Vitamin D 913-934jp-Fxtr Tablets Take One Tablet By Mouth Twice Daily Unkn own Global Ease Inject Pen Wiggins 01NW8MJ 32G X 4 mm Misc Unknown Immunizations Description No Information Available Vital Signs Date Vital Result Comment 11/28/2020 1:51pm Body Temperature 97.1 F Height 60 inches 5'0" Weight 237.00 lb BMI (Body Mass Index) 46.3 kg/m2 11/15/2020 4:15pm Body Temperature 96.1 F Height 61 inches 5'1" Weight 200.00 lb BMI (Body Mass Index) 37.8 kg/m2 Results Test Acquired Date Facility Test Result H/L Range Note Order 11/29/2020 [facility] [address] [facility] [address] [place] [address] Surgery <pending> Procedures Date Code Description Status 11/15/2020 58363 X-Ray Knee Ap & Lateral W/Obliqu es Three Views Completed 11/15/2020 29732 Inject/Drain Joint/Bursa Major C ompleted Medical Devices Description No Information Available Encounters Type Date Location Provider Dx Diagnosis Office Visit 11/28/2020 1:45p [facility] Thompson Grigsby MD G56.01 Carpal tunnel syndrome, right upper limb Office Visit 11/15/2020 3:30p Jackson DAVE Farris M17.12 Unilateral primary osteoarthritis, left knee Assessments Date Code Description Provider 11/28/2020 G56.01 Carpal tunnel syndrome, right up per limb Thompson Grigsby MD 11/15/2020 M17.12 Unilateral primary osteoarthriti s, left knee DAVE Farris Plan of Treatment 11/28/2020 - Thompson Grigsby MD* G56.01 Carpal tunnel syndrome, right upper limb * Follow up:* post op Functional Status Description No Information Available Mental Status Description No Information Available Referrals Refer to Dr Reason for Referral Status Appt Date Thompson Grigsby MD SURGERY NO AUTH REQUIRED FO R [facility]([id number]) TO SURGERY NT Created [address] [facility], [address] [address] [phone] Thompson Grigsby MD SURGERY PER [facility] NO A UTH REQUIRED FOR ULNAR NERVE AND CTR ([id number] AND [id number]) TO SURGERY NT Created [address] [address] [phone]
--- OUTSIDE RECORDS SUMMARY | 2020-12-12 06:24 | CCD | Continuity of Care Document ---
Author Author Indu CABAN MD Organization Unknown Address [address] [facility], [address] [place] [address] Phone [phone] Care Team Providers Care Cafe Team Member Name Role Phone Janice Russell RUMichelle AUTM [phone] Problems Active Problems Provider Date Acquired trigger [...] Provide r Date Global Ease Inject Pen [place] [id number] 32G X 4 mm Misc Use as [...] Twice Daily Unknown Vitamin D (Ergocalciferol) 1.25mg (27012 Ut) Capsules Take One Capsule By Mouth [...] Eye Twice Daily For 14 Days Unknown DesignMedixtouch Verio w/Device Kit Use as Directed Four Times Daily Unknown Lantus 100Unit/ML Solution use as directed-20u every day Unknown 0 Aspir-[address] ever Unknown Victoza 18mg/3ML Solution Pen-Inje ct 1.8 [...] 1 by mouth every day Unknown Ipratropium [place]/Albuterol Sulfate 0.5-2.5(3)mg/3ML Solution four times a day Unknown Proair HFA 108(90Base) mcg/Act Aer osol as needed Unknown Advair Diskus 250-50mcg/Dose Aeros ol 2 puffs every day Unknown Calcium 600 + D [id number]-Avnr Tab lets 1 by mouth every day Unknown Drisdol 33342Bjhc Capsules 1 tab by mouth weekly Unknown Lipitor 40mg Tablets 1 by mouth every day Unknown Folic Acid 1mg Tablets 1 by mouth every day Unknown Tylenol Extra Strength 500mg Table ts as needed Unknown Ranitidine HCL 150mg Tablets Unknown Toujeo Solostar 300U nit/ML Solution Pen-Inject Unknown Calcium Carbonate-Vitamin D 845-122ie-Zrqv Tablets Take One Tablet By Mouth Twice Daily Unkn own Global Ease Inject Pen [place] [id number] 32G X 4 mm Misc Unknown Immunizations Description No Information Available Vital Signs Date Vital Result Comment 11/28/2020 1:51pm Body Temperature 97.1 F Height 60 inches 5'0" Weight 237.00 lb BMI (Body Mass Index) 46.3 kg/m2 11/15/2020 4:15pm Body Temperature 96.1 F Height 61 inches 5'1" Weight 200.00 lb BMI (Body Mass Index) 37.8 kg/m2 Results Description No Information Available Procedures Date Code Description Status 11/15/2020 16832 X-Ray Knee Ap & Lateral W/Obliqu es Three Views Completed 11/15/2020 43259 Inject/Drain Joint/Bursa Major C ompleted Medical Devices Description No Information Available Encounters Type Date Location Provider Dx Diagnosis Office Visit 11/28/2020 1:45p Home Thompson Caban MD G56.01 Carpal tunnel syndrome, right upper limb Office Visit 11/15/2020 3:30p Home DAVE Farris M17.12 Unilateral primary osteoarthritis, left knee Assessments Date Code Description Provider 11/28/2020 G56.01 Carpal tunnel syndrome, right up per limb Thompson Caban MD 11/15/2020 M17.12 Unilateral primary osteoarthriti s, left knee DAVE Farris Plan of Treatment 11/28/2020 - Thompson Caban MD* G56.01 Carpal tunnel syndrome, right upper limb * New Orders:* Surgery, Ordered: 11/28/20 * Follow up:* post op Functional Status Description No Information Available Mental Status Description No Information Available Referrals Description No Information Available
--- OUTSIDE RECORDS SUMMARY | 2020-12-12 06:26 | CCD ---
Author Author [facility] Organization [facility] Address Unknown Phone Unavailable Care Team Providers Care Clinic Physician Name Role Phone Narcisa Turcios Unavailable PROBLEMS Type Condition ICD9-CM Code IIZ26-WD Code Onset Dates Condition S tatus SNOMED Code Notes Problem Allergic rhinitis, cause unspecified J30.9 Act dominik 16292914 Problem Personal history of noncompl iance with medical treatment, presenting hazards to health Z91.19 Active 7965069 Problem Arteriosclerosis of coronary artery I25.10 Acti ve 83091312 Problem Type II or unspecified type diabetes mellitus without mention of complication, not stated as uncontrolled E11.9 Active 23441511 Problem Paresthesia of right arm R20.2 Active 2409932 3 Problem Gastroesophageal reflux disease without esophagitis K21.9 Active 157224343 Problem Long-term current use of insulin for diabetes mellitus Z79.4 Active 757347081 Problem Age-related nuclear cataract of left eye H25.12 Active 27249426 Problem Age-related nuclear cataract of right eye H25.11 Active 66404222 Problem Controlled diabetes mellitus without complication, with long-term current use of insulin E11.9 Active 35816220 Problem Anxiety state F41.1 Active 555233075 Problem Vitamin D deficiency E55.9 Active 12100071 Problem Mixed hyperlipidemia E78.2 Active 060829216 Problem Chronic airway obstruction, not elsewhere classified J44.9 Active 96882609 Problem Body mass index (BMI) of 50-59.9 in adult Z68.43 Active 203147712 Problem Morbid (severe) obesity due to excess calories E66 .01 Active 049799508 Problem 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 Active 792155342 Problem COPD with exacerbation J44.1 Active 976351646 Problem group home current use of insulin Z79.4 Active 915635853 Problem Type 2 diabetes mellitus without complications E11 .9 Active 981765055 Problem Type 2 diabetes mellitus with unspecified complications E11.8 Active 63407172 Problem Carpal tunnel syndrome of right wrist G56.01 Ac tive 63293071 Problem Acquired hypothyroidism E03.9 Active 99143163 2 Problem Primary osteoarthritis of left knee M17.12 Acti ve 770354606025841 Problem Generalized osteoarthrosis, involving multiple sites M15.9 Active 932446248 Problem Essential hypertension I10 Active 49133702 Problem Acquired absence of both cervix and uterus Z90.710 Active 852007316 Problem 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 Active 560993779 Problem Urinary incontinence, unspecified type R32 A ctive 013195766 Problem Medicare annual wellness visit, subsequent Z00.00 Active 111038313954939 ALLERGIES Allergen (clinical drug ingredient) Drug/Non Drug Allergy do cumented on EMR Reaction Allergy Type Onset Date Status sulfamethoxazole / trimethoprim Bactrim([facility] Code:[address]-58) Hives Drug Allergy Active metformin Metformin diarrhea Drug Allergy Active Sulfa (for allergy use only) Hives Drug Allergy Active ENCOUNTERS from 1945 to 2020-11-23 Encounter Location Date Provider Diagnosis [address] [address] Oct, Narcisa Turcios Type 2 diabetes mellitus with unspecifie d complications E11.8 ; group home current use of insulin Z79.4 ; 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 ; Essential hypertension I10 and Mixed hyperlipidemia E78.2 IMMUNIZATIONS Vaccine Route Administration Date Status Influenza (18 yrs & older) Flublok IM Intramuscular Aug 15, 2020 Administered Influenza (18 yrs & older) Flublok IM Intramuscular Sep 29, 2019 Administered Influenza (18 yrs & older) Flublok IM Intramuscular Sep 02, 2018 Administered Influenza (High Dose 65 & up) Unknown Jul 23, 2017 Ad ministered Influenza (High Dose 65 & up) IM Intramuscular Sep 26, 2015 A dministered Pneumococcal Adult 0.5mL (Pneumovax 23) IM Intramuscular March Administered TDAP IM Intramuscular April 02, 2016 Administered Pneumococcal 0.5mL (Prevnar 13) IM Intramuscular Jul 26, 2014 Administered Influenza (6mo & up) Fluzone IM Intramuscular Aug 15, 2011 Ad ministered SOCIAL HISTORY Tobacco Use: Social History Observation Description Date Details (start date - stop date) Former Smoker Sex Assigned At : Social History Observation Description Sex Assigned At Unknown Education: Question Answer Notes Level of Education: High School Audit Question Answer Notes Total Score: 0 Interpretation: Alcohol Education Language: Question Answer Notes Languages spoken: [place] Church: Question Answer Notes Church 33 None Domestic Violence: Question Answer Notes Status: Sexual Hx: Question Answer Notes Had sex in the last 12 months (vaginal, oral, or anal)? No LMP: hyster Have you ever had an STD? No Drug and Alcohol Question Answer Notes Total Score: 0 Interpretation: No problems reported Alcohol Screening: Question Answer Notes Did you have a drink containing alcohol in the past year? No Points 0 Interpretation Negative BMI Care Goal Follow-Up Question Answer Notes Above Normal BMI Follow-Up Giving encouragement to exercise Tobacco Use: Question Answer Notes Are you a: former smoker How long has it been since you last smoked? > 10 years REASON FOR REFERRAL No Information VITAL SIGNS No information MEDICATIONS Medication SIG (Take, Route, Frequency, Duration) Notes Start Da te End Date Status Oxybutynin Chloride ER 5 MG 1 tablet Orally Once a day for 30 Days Active Gabapentin 300 MG 2 caps Orally Daily at bedtime for 30 Not-Taking Omeprazole 20 MG 1 capsule 30 minutes before morning meal Orally On ce a day Active Ipratropium-Albuterol 0.5-2.5 (3) MG/3ML 3 ml Inhalati on Six times a day... as needed Active Valsartan-Hydrochlorothiazide 160-25 MG 1 tablet Orally Once a day Active Victoza 1.8 mg 1.8mg injection SQ daily Active Celexa 20 MG 1 tablet Orally Once a day Active Lasix 20 MG 1 tablet Orally Once a day for 90 days Active Pepcid 40 MG 1 tablet Orally bid Mar, A ctive Depend Pant Extra Large 1 ea diag code: r32 (needs siz e xxl) needs a 2X dx code R32 as needed for incontinence MDD 24 for 30 days Jan, Active Felodipine ER 5 MG 1 tablet Orally Once a day Active Gabapentin 300 MG 2 caps Orally Daily at bedtime Active Folic Acid 1 mg 1 tablet Orally Once a day for 30 Active Glucose Monitor - Dx:I11.29 MACHINE four times daily for 30 days February, Active May Have - Dx: M15.9 Walker repair for 99 days Aug, 0 Active ProAir HFA 108 (90 Base) MCG/ACT 2 puffs as needed Inh alation every 4 hrs for 90 day(s) Active Pen [place] 32G X 4 MM dx: e11.9 subcutaneously three daily for 30 da y(s) Active Aspirin 81 MG TAKE ONE TABLET BY MOUTH ONCE DAILY Not-Taking Furosemide 20 MG 1 tablet Orally Once a day Not-Taking Lancets - as directed Dx: E11.9 twice daily for 30 day(s) Dec, Active Calcium 600 + D 600-400 MG-UNIT 1 tablet Orally twice a day for 90 Active Levothyroxine Sodium 50 MCG 1 tablet every morning on an empty stomach Orally Once a day Active HydrOXYzine HCl 25 MG 1 tablet as needed Orally twice daily for 30 da ys Active Walker rolling, with seat and brakes walker DX: M15.9 walker for 30 Days Jul, Active Aspir-81 81 MG 1 tablet Orally Once a day for 90 day(s) Active Advair Diskus 250-50 MCG/DOSE 1 puff Inhalation every 12 hrs for 90 day(s) Active Tylenol 500 mg 2 tabs (arthritic pain) only as needed Orally twice daily mdd 4 Active Drisdol 41657 UNIT 1 capsule Orally Once every 2 weeks with meal Active Lipitor 40 MG 1 tablet Orally Once a day at BEDTIME Active Felodipine ER 5 MG 1 tablet Orally Once a day Active Valsartan-Hydrochlorothiazide 160-25 MG 1 tablet Orally Once a day Not-Taking Blood Glucose Test - as directed In Vitro, one to uch three to four times daily DX: E11.49 on insulin for 30 days Active Toujeo SoloStar 300 UNIT/ML 1 injection 60 units daily subcutaneous 90 day(s) Subcutaneous Daily Active Humalog KwikPen 100 UNIT/ML 6 units, may increase by 1 unit per week if fs > 140 Subcutaneous Daily immediately with noon meal for 30 Days Active PROCEDURES No Information RESULTS No Results REASON FOR VISIT ccm dm MEDICAL (GENERAL) HISTORY Type Description Date Medical History ulcer? (no ulcer in EGD orUGI report 200 0) Medical History Type 2 DM (2000) Medical History CAD - NSS 03/2012 - [place] [facility] Medical History COPD, FEV1 1.67 09/13 Medical History hyperlipidemia Medical History HTN - neg NST 04/07, [facility] Medical History anxiety Medical History urinary freq Medical History deg. disc disease--c-spine, t-spine, ls- spine Medical History osteo arthritis Medical History hypothyroid Medical History vit d def. Medical History morbid obesity--BMI >50 Medical History Localized osteoarthrosis not specified whether primary or secondary, lower leg Surgical History hysterectomy, total with BSO Surgical History breast biopsy R Surgical History carpal tunnel release L 310 Surgical History (pt cancelled colonoscopy X3) Surgical History coronary artery bypass graft x 3 2000 Surgical History L cataract 02-05-17 Surgical History R cataract 04-02-17 Goals Section No Information Health Concerns No Information MEDICAL EQUIPMENT No Information MENTAL STATUS No Information FUNCTIONAL STATUS No Information ASSESSMENTS Encounter Date Diagnosis Assessment Notes Treatment Notes Treatm ent Clinical Notes Oct, Type 2 diabetes mellitus wit h unspecified complications (ICD-10 - E11.8) Oct, [employer] customer service current use of insulin (ICD-10 - Z79.4 ) Oct, Other diabetic neurological complication associated with type 2 diabetes mellitus (ICD-10 - E11.49) Oct, Essential hypertension (ICD-10 - I10) Oct, Mixed hyperlipidemia (ICD-10 - E78.2) PLAN OF TREATMENT Next Appt Details 4 Weeks Reason:12/27/2020 at 3 pm Provider Name:Narcisa Turcios, 03:00:00 PM, [address] [place] [address], [phone], Provider Name:Janice Russell, 2021-02-07 02:3 0:00 PM, [address] [place] [address], [phone], Follow Up:4 Weeks12/27/2020 at 3 pm Insurance Providers Payer Name Payer Address Payer Phone Insured Name Patient Relati onship to Insured Coverage Start Date Coverage End Date [facility] [address] [facility] [id number] ASHLEIGH GARCIA MEDICAID [facility] [address] [facility] [id number] ASHLEIGH GARCIA
--- OUTSIDE RECORDS SUMMARY | 2020-12-12 06:28 | CCD | Continuity of Care Document ---
Author Author Indu CHRISTIANSON PA Organization Unknown Address [address] [facility], [facility] [address] [place] [address] Phone [phone] Care Team Providers Care Automation Qa Lead Name Role Janice Wilder CIELO AUTM [phone] Problems Active Problems Provider Date Acquired trigger [...] Provide r Date Global Ease Inject Pen [place] [id number] 32G X 4 mm Misc Use as [...] Twice Daily Unknown Vitamin D (Ergocalciferol) 1.25mg (41602 Ut) Capsules Take One Capsule By Mouth [...] Eye Twice Daily For 14 Days Unknown [email or web address] Verio w/Device Kit Use as Directed Four [...] 1 by mouth every day Unknown Ipratropium [place]/Albuterol Sulfate 0.5-2.5(3)mg/3ML Solution four times a day Unknown Proair HFA 108(90Base) mcg/Act Aer osol as needed Unknown Advair Diskus 250-50mcg/Dose Aeros ol 2 puffs every day Unknown Calcium 600 + D [id number] Tab lets 1 by mouth every day Unknown Drisdol [id number] Capsules 1 tab by mouth weekly Unknown Lipitor 40mg Tablets 1 by mouth every day Unknown Folic Acid 1mg Tablets 1 by mouth every day Unknown Tylenol Extra Strength 500mg Table ts as needed Unknown Ranitidine HCL 150mg Tablets Unknown Toujeo Solostar 300U nit/ML Solution Pen-Inject Unknown Calcium Carbonate-Vitamin D [id number]-Oxet Tablets Take One Tablet By Mouth Twice Daily Unkn own Global Ease Inject Pen [place] [id number] 32G X 4 mm Misc Unknown Immunizations Description No Information Available Vital Signs Date Vital Result Comment 11/15/2020 4:15pm Body Temperature 96.1 F Height 61 inches 5'1" Weight 200.00 lb BMI (Body Mass Index) 37.8 kg/m2 02/11/2019 3:22pm Body Temperature 99.3 F Height 61 inches 5'1" Weight 271.38 lb BMI (Body Mass Index) 51.3 kg/m2 Results Description No Information Available Procedures Date Code Description Status 11/15/2020 53959 X-Ray Knee Ap & Lateral W/Obliqu es Three Views Completed 11/15/2020 45127 Inject/Drain Joint/Bursa Major C ompleted Medical Devices Description No Information Available Encounters Type Date Location Provider Dx Diagnosis Office Visit 11/15/2020 3:30p Lena DAVE Farris M17.12 Unilateral primary osteoarthritis, left knee Assessments Date Code Description Provider 11/15/2020 M17.12 Unilateral primary osteoarthriti s, left knee DAVE Farris Plan of Treatment 11/15/2020 - DVAE Farris* M17.12 Unilateral primary osteoarthritis, left knee* Follow up:* with sbf for carpal tunnel surg eval Functional Status Description No Information Available Mental Status Description No Information Available Referrals Description No Information Available
--- OUTSIDE RECORDS SUMMARY | 2020-12-12 06:29 | CCD ---
Continuity of Care Document (CCD) Created on: 11/15/2020 Indu Estrada External Reference #: [id number] : 1945 Sex: Female Author Author Indu MUHAMMAD DPM Organization Unknown Address [address] [place] [address], [address] [place] [address] Phone [phone] Care Team Providers Care Spring Upholsterer Name Role Phone Chiara Godinez, Stanislav AUTM [phone] [place] [employer], Janice AUTM [phone] Problems Active Problems Provider Date Onychomycosis Uche Muhammad DPM Onset: 10/05/2019 Peripheral vascular disorder due to diabetes mellitus Uche Muhammad DPM Onset: 10/05/2019 Corns and callosities Uche Muhammad DPM Onset: 10/05/2019 Social History Type Date Description Comments Sex Unknown ETOH Use Denies alcohol use Tobacco Use Start: Unknown End: Unknown Patient is a former smoker quit 2009, hx 40 years smoking 1ppd Allergies, Adverse Reactions, Alerts Active Allergies Reaction Severity Comments Date Sulfa Antibiotics itchy, facial swelling, burning sensation 07/15/2011 Medications Active Medications SIG Qnty Indications Ordering Provide r Date Proair HFA 108(90Base) mcg/Act Aer osol Inhale Two Puffs By Mouth Every Four Hours as Needed Unknown Levothyroxine Sodium 50mcg Tablets Take One Tablet By Mouth Every Morning On An Empty Stomach Unknown Valsartan-Hydrochlorothiazide 160-25mg Tablets Take One Tablet By Mouth Once Daily Unkno wn Aspirin 81mg Tablets DR Take One Tablet By Mouth Once Daily Unknown Atorvastatin Calcium 40mg Tablets Take One Tablet By Mouth Once Daily AT Bedtime Unknown Calcium Carbonate-Vitamin D [id number]-Zitc Tablets Take One Tablet By Mouth Twice Daily Unkn own Citalopram Hydrobromide 20mg Table ts Take One Tablet By Mouth Once Daily Unknown 0 Gabapentin 300mg Capsules Take Two Capsules By Mouth Daily AT Bedtime Unknown Ranitidine HCL 150mg Tablets Take One Tablet By Mouth Twice Daily Unknown Marina Solostar 300U nit/ML Solution Pen-Inject Inject 75 Units Subcutaneously Daily Unkn own Vitamin D (Ergocalciferol) 1.25mg (21846 Ut) Capsules Take One Capsule By Mouth Once Every Two Weeks With Meals Unknown Victoza 18mg/3ML Solution Pen-Inje ct Inject 1.8MG Subcutaneously Once Daily Unknown Onetouch Ultra Blue Strips Use as Directed Twice Daily Unknown Losartan Potassium/Hydrochlorothiazide 100-25mg Tablets Take One Tablet By Mouth Once Daily In The Morning Unknown Ciprofloxacin HCL 500mg Tablets Take One Tablet By Mouth Every Twelve Hours For 15 Days U nknown Onetouch Delica Lancets Fine 30G 3 0G Misc Use as Directed Twice Daily Unknown Global Ease Inject Pen [place] [id number] 32G X 4 mm Misc Use as Directed Subcutaneously Three Times Daily Unknown Folic Acid Unknown Aspirin Adult Low Strength Unknown Lipitor Unknown Advair Diskus Unknown Albuterol Neb Unknown Hydrin Unknown Ranitidine HCL Unknown Felodipine ER Unknown Calcium 500+D High Potency Unknown Metformin HCL Unknown Glypiside Unknown Extra Strength Pain Reliever Unknown Nitroglycerin SR 6.5mg Capsules ER Unknown Citalopram Hydrobromide Unknown 0 Clindamycin HCL 150mg Capsules Take Three Capsules By Mouth Four Times Daily For Cellulitis Unknown Acetaminophen 500mg Tablets Take Two Tablets By Mouth Every 6 Hours as Needed For Pain, Max Daily Dose Eight Tablets Unknown Wixela Inhub 250-50mcg/Dose Aeroso l Inhale 1 puff By Mouth Every 12 Hours Unknown 0 Immunizations Description No Information Available Vital Signs Date Vital Result Comment 01/16/2015 4:24pm Pain Level 0 09/30/2012 9:41am Height 61 inches 5'1" Weight 254.00 lb lost 6 lbs sincelast visit BP Systolic 154 mmHg BP Diastolic 75 mmHg Heart Rate 88 /min BMI (Body Mass Index) 48.0 kg/m2 Results Description No Information Available Procedures Date Code Description Status 10/12/2020 09421 Debridement 6-10 Nails Electric Completed 10/12/2020 73819 Paring/Cut Benign Lesion 2 To 4 Completed 08/03/2020 29924 Debridement 6-10 Nails Electric Completed 08/03/2020 32638 Paring/Cut Benign Lesion 2 To 4 Completed Medical Devices Description No Information Available Encounters Description No Information Available Assessments Date Code Description Provider 11/01/2020 E11.59 Type 2 diabetes mellitus with ot her circulatory complications Uche Muhammad, JAXON 10/12/2020 B35.1 Tinea unguium Uche Muhammad, JAXON 10/12/2020 E11.59 Type 2 diabetes mellitus with ot her circulatory complications Uche Muhammad, JAXON 10/12/2020 L84 Corns and callosities Uche Muhammad, JAXON 08/03/2020 B35.1 Tinea unguium Uche Muhammad, JAXON 08/03/2020 E11.59 Type 2 diabetes mellitus with ot her circulatory complications Uche Muhammad, JAXON 08/03/2020 L84 Corns and callosities Uche Muhammad DPM Plan of Treatment Future Appointment(s):* 12/21/2020 2:30 pm - Uche Muhammad DPM at [facility] [place] Functional Status Description No Information Available Mental Status Description No Information Available Referrals Description No Information Available
[2020-12-12] MEDS ORDERED: LR 1,000 ML IV ONE (06:30)
--- OUTSIDE RECORDS SUMMARY | 2020-12-12 06:31 | CCD ---
Author Author [facility] Organization [facility] Address Unknown Phone Unavailable Care Team Providers Care Director Software Development Name Role Phone Janice Russell Unavailable PROBLEMS Type Condition ICD9-CM Code [id number] Code Onset Dates Condition S tatus SNOMED Code Notes Problem Allergic rhinitis, cause unspecified J30.9 Act dominik 17296833 Problem Personal history of noncompl iance with medical treatment, presenting hazards to health Z91.19 Active 4998474 Problem Arteriosclerosis of coronary artery I25.10 Acti ve 56685788 Problem Type II or unspecified type diabetes mellitus without mention of complication, not stated as uncontrolled E11.9 Active 06019322 Problem Paresthesia of right arm R20.2 Active 0399756 3 Problem Gastroesophageal reflux disease without esophagitis K21.9 Active 192478976 Problem Long-term current use of insulin for diabetes mellitus Z79.4 Active 590982375 Problem Age-related nuclear cataract of left eye H25.12 Active 04997850 Problem Age-related nuclear cataract of right eye H25.11 Active 71076532 Problem Controlled diabetes mellitus without complication, with long-term current use of insulin E11.9 Active 20961723 Problem Anxiety state F41.1 Active 840984790 Problem Vitamin D deficiency E55.9 Active 76546549 Problem Mixed hyperlipidemia E78.2 Active 036261065 Problem Chronic airway obstruction, not elsewhere classified J44.9 Active 27632847 Problem Body mass index (BMI) of 50-59.9 in adult Z68.43 Active 158547741 Problem Morbid (severe) obesity due to excess calories E66 .01 Active 150695429 Problem 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 Active 118931009 Problem COPD with exacerbation J44.1 Active 233230100 Problem 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 Z79.4 Active 083462164 Problem Type 2 diabetes mellitus without complications E11 .9 Active 270946387 Problem Type 2 diabetes mellitus with unspecified complications E11.8 Active 35368731 Problem Carpal tunnel syndrome of right wrist G56.01 Ac tive 00380067 Problem Acquired hypothyroidism E03.9 Active 94662055 2 Problem Primary osteoarthritis of left knee M17.12 Acti ve 959282132591670 Problem Generalized osteoarthrosis, involving multiple sites M15.9 Active 433027194 Problem Essential hypertension I10 Active 67352021 Problem Acquired absence of both cervix and uterus Z90.710 Active 589881822 Problem 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 Active 198264506 Problem Urinary incontinence, unspecified type R32 A ctive 721407342 Problem Medicare annual wellness visit, subsequent Z00.00 Active 719309599566126 ALLERGIES Allergen (clinical drug ingredient) Drug/Non Drug Allergy do cumented on EMR Reaction Allergy Type Onset Date Status sulfamethoxazole / trimethoprim Bactrim([facility] Code:[address]-58) Hives Drug Allergy Active metformin Metformin diarrhea Drug Allergy Active Sulfa (for allergy use only) Hives Drug Allergy Active ENCOUNTERS from 1945 to 2020-11-10 Encounter Location Date Provider Diagnosis [address] [address] 12 Oct, 2 021 Janice Russell 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 ; Long-term current use of insulin for diabetes mellitus Z79.4 ; Acquired hypothyroidism E03.9 ; Essential hypertension I10 ; Vitamin D deficiency E55.9 ; Urinary incontinence, unspecified type R32 ; Anxiety state F41.1 ; Gastroesophageal reflux disease without esophagitis K21.9 ; Chronic airway obstruction, not elsewhere classified J44.9 ; Generalized osteoarthrosis, involving multiple sites M15.9 and Carpal tunnel syndrome of right wrist G56.01 IMMUNIZATIONS Vaccine Route Administration Date Status Influenza [...] Education Language: Question Answer Notes Languages spoken: Divehi Evangelical: Question Answer Notes Evangelical 33 None Domestic Violence: Question Answer Notes [...] REASON FOR REFERRAL No Information VITAL SIGNS Weight 247 lbs Oct, Height 60.0 in Oct, BMI 48.23 kg/m2 Oct, Heart Rate 74 /min Oct, Respiratory Rate 20 /min Oct, Temperature 96.4 degrees Fahrenheit Oct, Oximetry 96 Oct, Blood pressure systolic 120 mm Hg Oct, Blood pressure diastolic 62 mm Hg Oct, MEDICATIONS Medication SIG (Take, Route, Frequency, Duration) Notes Start Da te End Date Status HydrOXYzine HCl 25 MG 1 tablet as needed Orally twice daily for 30 da ys Active Ipratropium-Albuterol 0.5-2.5 (3) MG/3ML 3 ml Inhalati on Six times a day... as needed Active Valsartan-Hydrochlorothiazide 160-25 MG 1 tablet Orally Once a day Active Felodipine ER 5 MG 1 tablet Orally Once a day Active Depend Pant Extra Large 1 ea diag code: r32 (needs siz e xxl) needs a 2X dx code R32 as needed for incontinence MDD 24 for 30 days Jan, Active Victoza 1.8 mg 1.8mg injection SQ daily Active Aspirin 81 MG TAKE ONE TABLET BY MOUTH ONCE DAILY Active Drisdol 21065 UNIT 1 capsule Orally Once every 2 weeks with meal Active Lasix 20 MG 1 tablet Orally Once a day for 90 days Active Lancets - as directed Dx: E11.9 twice daily for 30 day(s) Dec, Active Walker rolling, with seat and brakes walker DX: M15.9 walker for 30 Days Jul, Active Toujeo SoloStar 300 UNIT/ML 1 injection 60 units daily subcutaneous 90 day(s) Subcutaneous Daily Active Aspir-81 81 MG 1 tablet Orally Once a day for 90 day(s) Active Calcium 600 + D 600-400 MG-UNIT 1 tablet Orally twice a day for 90 Active Glucose Monitor - Dx:I11.29 MACHINE four times daily for 30 days February, Active Gabapentin 300 MG 2 caps Orally Daily at bedtime for 30 Active Valsartan-Hydrochlorothiazide 160-25 MG 1 tablet Orally Once a day Active Advair Diskus 250-50 MCG/DOSE 1 puff Inhalation every 12 hrs for 90 day(s) Active Felodipine ER 5 MG 1 tablet Orally Once a day Active Furosemide 20 MG 1 tablet Orally Once a day Active Celexa 20 MG 1 tablet Orally Once a day Active February Have - Dx: M15.9 Walker repair for 99 days Aug, 0 Active ProAir HFA 108 (90 Base) MCG/ACT 2 puffs as needed Inh alation every 4 hrs for 90 day(s) Active Pen Hutto 32G X 4 MM dx: e11.9 subcutaneously three daily for 30 da y(s) Active Levothyroxine Sodium 50 MCG 1 tablet every morning on an empty stomach Orally Once a day Active Gabapentin 300 MG 2 caps Orally Daily at bedtime Active Folic Acid 1 mg 1 tablet Orally Once a day for 30 Active Tylenol 500 mg 2 tabs (arthritic pain) only as needed Orally twice daily mdd 4 Active Lipitor 40 MG 1 tablet Orally Once a day at BEDTIME Active Oxybutynin Chloride ER 5 MG 1 tablet Orally Once a day for 30 Days Active Pepcid 40 MG 1 tablet Orally bid 10 Mar, 2020 A ctive Omeprazole 20 MG 1 capsule 30 minutes before morning meal Orally On a day Active Blood Glucose Test - as directed In Vitro, one to uch three to four times daily DX: E11.49 on insulin for 30 days Active Humalog KwikPen 100 UNIT/ML 6 units, may increase by 1 unit per week if fs > 140 Subcutaneous Daily immediately with noon meal for 30 Days Active PROCEDURES No Information RESULTS No Results REASON FOR VISIT 6 Weeks (30min) (Reason: f/u after labs) MEDICAL (GENERAL) HISTORY Type Description Date Medical History ulcer? (no ulcer in EGD orUGI report 200 0) Medical History Type 2 DM (2000) Medical History CAD - NSS 03/2012 - [facility] Medical History COPD, FEV1 1.67 09/13 Medical History hyperlipidemia Medical History HTN - neg NST 04/07, [facility] Medical History anxiety Medical History urinary freq Medical History deg. disc disease--c-spine, t-spine, ls- spine Medical History osteo arthritis Medical History hypothyroid Medical History vit d def. Medical History morbid obesity--BMI >50 Medical History Localized osteoarthrosis not specified whether primary or secondary, lower leg Surgical History hysterectomy, total with BSO Surgical History breast biopsy R Surgical History carpal tunnel release L 3-10-10 Surgical History (pt cancelled colonoscopy X3) Surgical History coronary artery bypass graft x 3 2000 Surgical History L cataract 02-05-17 Surgical History R cataract 04-02-17 Goals Section No Information Health Concerns No Information MEDICAL EQUIPMENT No Information MENTAL STATUS No Information FUNCTIONAL STATUS No Information ASSESSMENTS Encounter Date Diagnosis Assessment Notes Treatment Notes Treatm ent Clinical Notes Oct, Other diabetic neurological complication associated with type 2 diabetes mellitus (ICD-10 - E11.49) advised to monitor FFS and 2hr PP lunch and dinner . FS improved after Increasing short acting insulin at largest meal (mid day) advised to monitor arsh glucose readings. Advised to bring her glucometer and meds including pens to f/up visit and f/up for CCM appt. as scheduled Oct, Long-term current use of ins ulin for diabetes mellitus (ICD-10 - Z79.4) Oct, Acquired hypothyroidism (ICD-10 - E03.9) re-check lab prior to f/up Oct, Essential hypertension (ICD-10 - I10) BP good, continue current meds Oct, Vitamin D deficiency (ICD-10 - E55.9) Oct, Urinary incontinence, unspecified type (ICD-10 - R32) Oct, Anxiety state (ICD-10 - F41.1) Oct, Gastroesophageal reflux dise ase without esophagitis (ICD-10 - K21.9) symptoms controlled on current meds with hx of ulcer Oct, Chronic airway obstruction, not elsewhere classified (ICD-10 - J44.9) stable on current inhalers - continues with FARAH Oct, Generalized osteoarthrosis, involving multiple sites (ICD-10 - M15.9) continue use of walker, f/up per ortho - paperwork for home care assistance completed Oct, Carpal tunnel syndrome of right wrist (ICD-10 - G56.01) f/up per ortho for numbness of right hand - impairs her ability to to do housework, etc. Paperwork completed for home care assisatnce PLAN OF TREATMENT Medication Medication Name Sig Start Date Stop Date Blood Glucose Test - as directed In Vitro, one to uch three to four times daily DX: E11.49 on insulin for 30 days Humalog KwikPen 100 UNIT/ML 6 units, may increase by 1 unit per week if fs > 140 Subcutaneous Daily immediately with noon meal for 30 Days Omeprazole 20 MG 1 capsule 30 minutes before morning meal Orally Once a day Pepcid 40 MG 1 tablet Orally bid Mar, Aspirin 81 MG TAKE ONE TABLET BY MOUTH ONCE DAILY Toucyndie SoloStar 300 UNIT/ML 1 injection 60 units daily subcutaneous 90 day(s) Subcutaneous Daily HydrOXYzine HCl 25 MG 1 tablet as needed Orally twice daily for 30 days Victoza 1.8 mg 1.8mg injection SQ daily Valsartan-Hydrochlorothiazide 160-25 MG 1 tablet Orally Once a d ay Oxybutynin Chloride ER 5 MG 1 tablet Orally Once a day for 30 Da ys Felodipine ER 5 MG 1 tablet Orally Once a day Furosemide 20 MG 1 tablet Orally Once a day Calcium 600 + D 600-400 MG-UNIT 1 tablet Orally twice a day for 90 Levothyroxine Sodium 50 MCG 1 tablet every morning on an empty stomach Orally Once a day Celexa 20 MG 1 tablet Orally Once a day Gabapentin 300 MG 2 caps Orally Daily at bedtime Drisdol 44674 UNIT 1 capsule Orally Once every 2 weeks with meal Treatment Notes Assessment Notes Clinical Notes Other diabetic neurological complication associated with type 2 diabetes mellitus advised to monitor FFS and 2hr PP lunch and dinner . FS improved after Increasing short acting insulin at largest meal (mid day) advised to monitor arsh glucose readings. Advised to bring her glucometer and meds including pens to f/up visit and f/up for CCM appt. as scheduled Acquired hypothyroidism re-check lab prior to f/up Essential hypertension BP good, continue current meds Gastroesophageal reflux disease without esophagitis sy mptoms controlled on current meds with hx of ulcer Chronic airway obstruction, not elsewhere classified s table on current inhalers - continues with FARAH Generalized osteoarthrosis, involving multiple sites c ontinue use of walker, f/up per ortho - paperwork for home care assistance completed Carpal tunnel syndrome of right wrist f/up per ortho f or numbness of right hand - impairs her ability to to do housework, etc. Paperwork completed for home care assisatnce Future Test Test Name Order Date FREE T4 & TSH PANEL 55340412 Comprehensive Metabolic Profile (CMP) 20210125 HEMOGLOBIN A1c [id number] VITAMIN D 25-HYDROXY 20210125 Next Appt Details 3 Months(30min) Reason:f/u after labs Provider Name:Narcisa Turcios, 03:00:00 PM, [address] [place], [address], Provider Name:Janice Russell, 2021-02-07 02:3 0:00 PM, [address] [place], [address], Follow Up:3 Months(30min)f/u after labs Insurance Providers Payer Name Payer Address Payer Phone Insured Name Patient Relati onship to Insured Coverage Start Date Coverage End Date [facility] [address] [facility] [phone] ASHLEIGH GARCIA MEDICAID [employer] [address] [facility] [address] ASHLEIGH GARCIA
--- OUTSIDE RECORDS SUMMARY | 2020-12-12 06:33 | CCD ---
Author Author [facility] Organization [facility] Address Unknown Phone Unavailable Care Team Providers Care Spring Salvage Worker Name Role Phone Janice Russell Unavailable PROBLEMS Type Condition ICD9-CM Code [id number] Code Onset Dates Condition S tatus SNOMED Code Notes Problem Allergic rhinitis, cause unspecified J30.9 Act dominik 34498470 Problem Personal history of noncompl iance with medical treatment, presenting hazards to health Z91.19 Active 2883097 Problem Arteriosclerosis of coronary artery I25.10 Acti ve 65211059 Problem Type II or unspecified type diabetes mellitus without mention of complication, not stated as uncontrolled E11.9 Active 00017472 Problem Paresthesia of right arm R20.2 Active 9867056 3 Problem Gastroesophageal reflux disease without esophagitis K21.9 Active 252569108 Problem Long-term current use of insulin for diabetes mellitus Z79.4 Active 605783684 Problem Age-related nuclear cataract of left eye H25.12 Active 05384544 Problem Age-related nuclear cataract of right eye H25.11 Active 47432373 Problem Controlled diabetes mellitus without complication, with long-term current use of insulin E11.9 Active 19663392 Problem Anxiety state F41.1 Active 040489860 Problem Vitamin D deficiency E55.9 Active 56098067 Problem Mixed hyperlipidemia E78.2 Active 817544366 Problem Chronic airway obstruction, not elsewhere classified J44.9 Active 75659948 Problem Body mass index (BMI) of 50-59.9 in adult Z68.43 Active 195515668 Problem Morbid (severe) obesity due to excess calories E66 .01 Active 197582166 Problem 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 Active 880835624 Problem COPD with exacerbation J44.1 Active 770263112 Problem intermission coordinator current use of insulin Z79.4 Active 161462727 Problem Type 2 diabetes mellitus without complications E11 .9 Active 988913725 Problem Type 2 diabetes mellitus with unspecified complications E11.8 Active 13478264 Problem Carpal tunnel syndrome of right wrist G56.01 Ac tive 57382934 Problem Acquired hypothyroidism E03.9 Active 26376532 2 Problem Primary osteoarthritis of left knee M17.12 Acti ve 805193607967157 Problem Generalized osteoarthrosis, involving multiple sites M15.9 Active 877014053 Problem Essential hypertension I10 Active 12887010 Problem Acquired absence of both cervix and uterus Z90.710 Active 160498915 Problem 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 Active 278380307 Problem Urinary incontinence, unspecified type R32 A ctive 692472985 Problem Medicare annual wellness visit, subsequent Z00.00 Active 511473799202612 ALLERGIES Allergen (clinical drug ingredient) Drug/Non Drug Allergy do cumented on EMR Reaction Allergy Type Onset Date Status sulfamethoxazole / trimethoprim Bactrim([facility] Code:[address]-67) Hives Drug Allergy Active metformin Metformin diarrhea Drug Allergy Active Sulfa (for allergy use only) Hives Drug Allergy Active ENCOUNTERS from 1945 to 2020-11-08 Encounter Location Date Provider Diagnosis [address] [address] Oct, 021 [facility] IMMUNIZATIONS Vaccine Route Administration Date Status Influenza [...] Education Language: Question Answer Notes Languages spoken: Pashto Gnosticist: Question Answer Notes Gnosticist 33 None Domestic Violence: Question Answer Notes [...] TABLET BY MOUTH ONCE DAILY Active Drisdol 75957 UNIT 1 capsule Orally Once every 2 [...] 4 hrs for 90 day(s) Active Pen [place]ott 32G X 4 MM dx: e11.9 subcutaneously [...] 1 tablet Orally bid Mar, A ctive Omeprazole 20 MG 1 capsule 30 minutes before morning meal Orally On ce a day Active Blood Glucose Test - as directed In Vitro, one to uch three to four times daily DX: E11.49 on insulin for 30 days Active Humalog KwikPen 100 UNIT/ML 6 units, may increase by 1 unit per week if fs > 140 Subcutaneous Daily immediately with noon meal for 30 Days Active PROCEDURES No Information RESULTS No Results REASON FOR VISIT MEDICATION MEDICAL (GENERAL) HISTORY Type Description Date Medical History ulcer? (no ulcer in EGD orUGI report 200 0) Medical History Type 2 DM (2000) Medical History CAD - NSS 03/2012 - [place] [facility] Medical History COPD, FEV1 1.67 09/13 Medical History hyperlipidemia Medical History HTN - neg NST 04/07, [facility] Medical History anxiety Medical History urinary freq Medical History deg. disc disease--c-spine, t-spine, ls- spine Medical History osteo arthritis Medical History hypothyroid Medical History vit d def. Medical History morbid obesity--BMI >50 Medical History Localized osteoarthrosis not specified whether primary or secondary, lower leg Surgical History hysterectomy, total with BSO Surgical History breast biopsy R Surgical History carpal tunnel release L 3-10 Surgical History (pt cancelled colonoscopy X3) Surgical History coronary artery bypass graft x 3 2000 Surgical History L cataract 02-05-17 Surgical History R cataract 04-02-17 Goals Section No Information Health Concerns No Information MEDICAL EQUIPMENT No Information MENTAL STATUS No Information FUNCTIONAL STATUS No Information ASSESSMENTS No Information PLAN OF TREATMENT Medication Medication Name Sig [...] TAKE ONE TABLET BY MOUTH ONCE DAILY Toujeo SoloStar 300 UNIT/ML 1 injection 60 [...] 2 caps Orally Daily at bedtime Drisdol 58312 UNIT 1 capsule Orally Once every 2 weeks with meal Next Appt Details Provider Name:Narcisa Turcios, 03:00:00 PM, [address] [place] [address], [phone], Provider Name:Janice Russell, 2021-02-07 02:3 0:00 PM, [address] [place] [address], [id number], Insurance Providers Payer Name Payer Address Payer Phone Insured Name Patient Relati onship to Insured Coverage Start Date Coverage End Date MEDICAID [employer] [address] [facility] [address] [facility] [address] [facility] [phone] ASHLEIGH GARCIA [facility]
--- OUTSIDE RECORDS SUMMARY | 2020-12-12 06:36 | CCD ---
Continuity of Care Document (CCD) Created on: 11/01/2020 Indu Estrada External Reference #: [id number] : 1945 Sex: Female Author Author Indu MUHAMMAD DPM Organization Unknown Address [address] [place] [address], [address] [place] [address] Phone [phone] Care Team Providers Care Superintendent Oil [employer] Services Name Role Phone Chiara Godinez, Stanislav AUTM [phone] [place] PROCESS TANK TENDER, Janice AUTM [phone] Problems Active Problems Provider Date Onychomycosis Uche [...] Daily AT Bedtime Unknown Calcium Carbonate-Vitamin D [id number] Tablets Take One Tablet By Mouth Twice [...] Daily Unkn own Vitamin D (Ergocalciferol) 1.25mg (15004 Ut) Capsules Take One Capsule By Mouth [...] Twice Daily Unknown Global Ease Inject Pen Citra 85DK9IL 32G X 4 mm Misc Use as [...] Available Procedures Date Code Description Status 10/12/2020 39007 Debridement 6-10 Nails Electric Completed 10/12/2020 09689 Paring/Cut Benign Lesion 2 To 4 Completed 08/03/2020 42672 Debridement 6-10 Nails Electric Completed 08/03/2020 18135 Paring/Cut Benign Lesion 2 To 4 Completed Medical Devices Description No Information Available Encounters Description No Information Available Assessments Date Code Description Provider 10/12/2020 B35.1 Tinea unguium Uche Muhammad, JAXON 10/12/2020 E11.59 Type 2 diabetes mellitus with ot her circulatory complications Uche Muhammad DPM 10/12/2020 L84 Corns and callosities Uche Muhammad DPM 08/03/2020 B35.1 Tinea unguium Uche Muhammad, JAXON 08/03/2020 E11.59 Type 2 diabetes mellitus with ot her circulatory complications Uche Muhammad DPM 08/03/2020 L84 Corns and callosities Uche Muhammad DPM Plan of Treatment Future Appointment(s):* 12/21/2020 2:30 pm - Uche Muhammad DPM at [place] [facility] Functional Status Description No Information Available Mental Status Description No Information Available Referrals Description No Information Available
--- OUTSIDE RECORDS SUMMARY | 2020-12-12 06:37 | CCD ---
Author Author [facility] Organization [facility] Address Unknown Phone Unavailable Care Team Providers Care Instructor Bus [employer] Name Role Phone Janice Russell Unavailable PROBLEMS Type Condition ICD9-CM Code RUW01-QC Code Onset Dates Condition S tatus SNOMED Code Notes Problem Allergic rhinitis, cause unspecified J30.9 Act dominik 86583323 Problem Personal history of noncompl iance with medical treatment, presenting hazards to health Z91.19 Active 2862057 Problem Arteriosclerosis of coronary artery I25.10 Acti ve 33254382 Problem Type II or unspecified type diabetes mellitus without mention of complication, not stated as uncontrolled E11.9 Active 77645293 Problem Paresthesia of right arm R20.2 Active 7250633 3 Problem Gastroesophageal reflux disease without esophagitis K21.9 Active 396951505 Problem Long-term current use of insulin for diabetes mellitus Z79.4 Active 569475726 Problem Age-related nuclear cataract of left eye H25.12 Active 83141150 Problem Age-related nuclear cataract of right eye H25.11 Active 38799493 Problem Controlled diabetes mellitus without complication, with long-term current use of insulin E11.9 Active 17237505 Problem Anxiety state F41.1 Active 363860467 Problem Vitamin D deficiency E55.9 Active 47207397 Problem Mixed hyperlipidemia E78.2 Active 742215399 Problem Chronic airway obstruction, not elsewhere classified J44.9 Active 49206379 Problem Body mass index (BMI) of 50-59.9 in adult Z68.43 Active 197642134 Problem Morbid (severe) obesity due to excess calories E66 .01 Active 033844558 Problem 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 Active 032669831 Problem COPD with exacerbation J44.1 Active 953449626 Problem intermediate card tender current use of insulin Z79.4 Active 458433559 Problem Type 2 diabetes mellitus without complications E11 .9 Active 913552565 Problem Type 2 diabetes mellitus with unspecified complications E11.8 Active 50985904 Problem Carpal tunnel syndrome of right wrist G56.01 Ac tive 68672093 Problem Acquired hypothyroidism E03.9 Active 59593491 2 Problem Primary osteoarthritis of left knee M17.12 Acti ve 555146880690228 Problem Generalized osteoarthrosis, involving multiple sites M15.9 Active 122441340 Problem Essential hypertension I10 Active 24251922 Problem Acquired absence of both cervix and uterus Z90.710 Active 472056343 Problem 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 Active 283312307 Problem Urinary incontinence, unspecified type R32 A ctive 652416148 Problem Medicare annual wellness visit, subsequent Z00.00 Active 467688836097966 ALLERGIES Allergen (clinical drug ingredient) Drug/Non Drug Allergy do cumented on EMR Reaction Allergy Type Onset Date Status sulfamethoxazole / trimethoprim Bactrim([facility] Code:[address]-84) Hives Drug Allergy Active metformin Metformin diarrhea Drug Allergy Active Sulfa (for allergy use only) Hives Drug Allergy Active ENCOUNTERS from 1945 to 2020-10-25 Encounter Location Date Provider Diagnosis [address] [address] Sep, 020 Janice Russell Chronic airway obstruction, not elsewhere classified J44.9 IMMUNIZATIONS Vaccine Route Administration Date Status Influenza (18 yrs & older) Flublok IM Intramuscular Aug 15, 2020 Administered Influenza (18 yrs & older) Flublok IM Intramuscular Sep 29, 2019 Administered Influenza (18 yrs & older) Flublok IM Intramuscular Sep 02, 2018 Administered Influenza (High Dose 65 & up) IM Intramuscular Sep 26, 2015 A dministered Influenza (High Dose 65 & up) Unknown Jul 23, 2017 Ad ministered Pneumococcal Adult 0.5mL (Pneumovax 23) IM Intramuscular [...] School Audit Question Answer Notes Total Score: 1 Interpretation: Alcohol Education Language: Question Answer Notes Languages spoken: Persian Orthodox: Question Answer Notes Orthodox 33 None Sexual Hx: Question Answer Notes Had sex [...] Notes Start Da te End Date Status Famotidine 20 MG 1 tab Orally twice daily Active Walker rolling, with seat and brakes walker DX: M15.9 walker for 30 Days Jul, Active Calcium 600 + D 600-400 MG-UNIT 1 tablet Orally twice a day for 90 Active Glucose Monitor - Dx:I11.29 MACHINE four times daily for 30 days February, Active Humalog KwikPen 100 UNIT/ML 6 units, may increase by 1 unit per week if fs > 140 Subcutaneous Daily immediately with noon meal for 30 Days Active Pepcid 40 MG 1 tablet Orally bid for 90 day(s) Mar, 0 Active Blood Glucose Test - as directed In Vitro, one to uch twice daily DX: E11.8 on insulin for 50 Active Felodipine ER 5 MG 1 tablet Orally Once a day Active Omeprazole 20 MG 1 capsule 30 minutes before morning meal Orally Once a day for 90 day(s) Sep, Active Lancets - as directed Dx: E11.9 twice daily for 30 day(s) Dec, Active ProAir HFA 108 (90 Base) MCG/ACT 2 puffs as needed Inh alation every 4 hrs for 90 day(s) Active Pen [place] 32G X 4 MM dx: e11.9 subcutaneously three daily for 30 da y(s) Active Ipratropium-Albuterol 0.5-2.5 (3) MG/3ML 3 ml Inhalati on Six times a day... as needed Active Gabapentin 300 MG 2 caps Orally Daily at bedtime Active HydrOXYzine HCl 25 MG 1 tablet as needed Orally every 8 hrs Active Drisdol 49797 UNIT 1 capsule Orally Once every 2 weeks with meal Active Lasix 20 MG 1 tablet Orally Once a day for 90 days Active Gabapentin 300 MG 2 caps Orally Daily at bedtime for 30 Active Lipitor 40 MG 1 tablet Orally Once a day at BEDTIME Active Levothyroxine Sodium 50 MCG 1 tablet every morning on an empty stomach Orally Once a day Active Advair Diskus 250-50 MCG/DOSE 1 puff Inhalation every 12 hrs for 90 day(s) Active Aspir-81 81 MG 1 tablet Orally Once a day for 90 day(s) Active Depend Pant Extra Large 1 ea diag code: r32 (needs siz e xxl) needs a 2X dx code R32 as needed for incontinence MDD 24 for 30 days Jan, Active Folic Acid 1 mg 1 tablet Orally Once a day for 30 Active Valsartan-Hydrochlorothiazide 160-25 MG 1 tablet Orally Once a day Active Victoza 1.8 mg 1.8mg injection SQ daily Active May Have - Dx: M15.9 Walker repair for 99 days Aug, 0 Active Toujeo SoloStar 300 UNIT/ML 1 injection 60 units daily subcutaneous 90 day(s) Subcutaneous Daily Active Oxybutynin Chloride ER 5 MG 1 tablet Orally Once a day Active Celexa 20 MG 1 tablet Orally Once a day Active Tylenol 500 mg 2 tabs (arthritic pain) only as needed Orally twice daily mdd 4 Active PROCEDURES No Information RESULTS No Results REASON FOR VISIT med refill request MEDICAL (GENERAL) HISTORY Type Description Date Medical History ulcer? (no ulcer in EGD orUGI report 200 0) Medical History Type 2 DM (2000) Medical History CAD - NSS 03/2012 - [place] [facility] Medical History COPD, FEV1 1.67 09/13 Medical History hyperlipidemia Medical History HTN - neg NST 04/07, [facility] Medical History anxiety Medical History urinary freq Medical History deg. disc disease--c-spine, t-spine, ls- spine Medical History osteo arthritis Medical History hypothyroid Medical History vit d def. Medical History morbid obesity--BMI >50 Medical History Localized osteoarthrosis not specified whether primary or secondary, lower leg Surgical History hysterectomy, total with BSO Surgical History breast biopsy R Surgical History carpal tunnel release L 3--10 Surgical History (pt cancelled colonoscopy X3) Surgical History coronary artery bypass graft x 3 2000 Surgical History L cataract 02-05-17 Surgical History R cataract 04-02-17 Goals Section No Information Health Concerns No Information MEDICAL EQUIPMENT No Information MENTAL STATUS No Information FUNCTIONAL STATUS No Information ASSESSMENTS Encounter Date Diagnosis Assessment Notes Treatment Notes Treatm ent Clinical Notes Sep, Chronic airway obstruction, not elsewhere classified (ICD-10 - J44.9) PLAN OF TREATMENT Medication Medication Name Sig Start Date Stop Date Advair Diskus 250-50 MCG/DOSE 1 puff Inhalation every 12 hrs for 90 day(s) ProAir HFA 108 (90 Base) MCG/ACT 2 puffs as needed Inh alation every 4 hrs for 90 day(s) Next Appt Details Provider Name:Janice Russell, 2020-11-07 03:0 0:00 PM, [address] [place] [address], [address], Provider Name:Narcisa Turcios, 03:00:00 PM, [address] [place], [address], Insurance Providers Payer Name Payer Address Payer Phone Insured Name Patient Relati onship to Insured Coverage Start Date Coverage End Date [facility] [id number] [facility] [id number] ASHLEIGH GARCIA [facility] [address] [facility] [address] ASHLEIGH GARCIA
--- OUTSIDE RECORDS SUMMARY | 2020-12-12 06:40 | CCD | Continuity of Care Document ---
Author Author [facility] Organization Unknown Address [address] [place] [address], [address] [place] [address] Phone [phone] Care Team Providers Care Barrel Cutter Name Role Phone Chiara Godinez, Stanislav AUTM [phone] [employer] MOTOR VEHICLE EMISSIONS INSPECTOR, Janice AUTFauzia [phone] Problems Active Problems Provider Date Onychomycosis Uche [...] Daily AT Bedtime Unknown Calcium Carbonate-Vitamin D [id number] Tablets Take One Tablet By Mouth Twice [...] Daily Unkn own Vitamin D (Ergocalciferol) 1.25mg (71808 Ut) Capsules Take One Capsule By Mouth [...] Twice Daily Unknown Global Ease Inject Pen [place] [id number] 32G X 4 mm Misc Use as [...] Available Procedures Date Code Description Status 10/12/2020 57163 Debridement 6-10 Nails Electric Completed 10/12/2020 34919 Paring/Cut Benign Lesion 2 To 4 Completed 08/03/2020 12546 Debridement 6-10 Nails Electric Completed 08/03/2020 84415 Paring/Cut Benign Lesion 2 To 4 Completed [...] 2:30 pm - Uche Muhammad DPM at [facility] Functional Status Description No Information Available Mental Status Description No Information Available Referrals Description No Information Available
--- OUTSIDE RECORDS SUMMARY | 2020-12-12 06:41 | CCD | Continuity of Care Document ---
Author Author [facility] Organization Unknown Address [address] [place] [address], [address] [place] [address] Phone [phone] Care Team Providers Care Professor Of German Name Role Phone Chiara Godinez, Stanislav AUTM [phone] [place] NON DESTRUCTIVE EVALUATION MANAGER, Janice AUTFauzia [phone] Problems Active Problems Provider Date Onychomycosis Uche [...] Daily AT Bedtime Unknown Calcium Carbonate-Vitamin D 923-727sr-Ooyc Tablets Take One Tablet By Mouth Twice [...] Daily Unkn own Vitamin D (Ergocalciferol) 1.25mg (93393 Ut) Capsules Take One Capsule By Mouth [...] Twice Daily Unknown Global Ease Inject Pen [place] [id number] 32G X 4 mm Misc Use as [...] Information Available Procedures Date Code Description Status 08/03/2020 23178 Debridement 6-10 Nails Electric Completed 08/03/2020 32877 Paring/Cut Benign Lesion 2 To 4 Completed Medical Devices Description No Information Available Encounters Description No Information Available Assessments Date Code Description Provider 08/03/2020 B35.1 Tinea unguium Uche Muhammad DPM 08/03/2020 E11.59 Type 2 diabetes mellitus with ot her circulatory complications Uche Muhammad DPM 08/03/2020 L84 Corns and callosities Uche Muhammad DPM Plan of Treatment Future Appointment(s):* 12/21/2020 2:30 pm - Uche Muhammad DPM at [facility] Functional Status Description No Information Available Mental Status Description No Information Available Referrals Description No Information Available
--- OUTSIDE RECORDS SUMMARY | 2020-12-12 06:42 | CCD ---
Author Author [facility] Organization [facility] Address Unknown Phone Unavailable Care Team Providers Care Art Coordinator Name Role Phone Narcisa Turcios Unavailable PROBLEMS Type Condition ICD9-CM Code LHS32-AS Code Onset Dates Condition S tatus SNOMED Code Notes Problem Allergic rhinitis, cause unspecified J30.9 Act dominik 13305577 Problem Personal history of noncompl iance with medical treatment, presenting hazards to health Z91.19 Active 3767085 Problem Arteriosclerosis of coronary artery I25.10 Acti ve 94061925 Problem Type II or unspecified type diabetes mellitus without mention of complication, not stated as uncontrolled E11.9 Active 31024616 Problem Paresthesia of right arm R20.2 Active 2721679 3 Problem Gastroesophageal reflux disease without esophagitis K21.9 Active 110405108 Problem Long-term current use of insulin for diabetes mellitus Z79.4 Active 335661402 Problem Age-related nuclear cataract of left eye H25.12 Active 66193597 Problem Age-related nuclear cataract of right eye H25.11 Active 54972191 Problem Controlled diabetes mellitus without complication, with long-term current use of insulin E11.9 Active 40362319 Problem Anxiety state F41.1 Active 015089504 Problem Vitamin D deficiency E55.9 Active 52323422 Problem Mixed hyperlipidemia E78.2 Active 530705519 Problem Chronic airway obstruction, not elsewhere classified J44.9 Active 09522653 Problem Body mass index (BMI) of 50-59.9 in adult Z68.43 Active 354159024 Problem Morbid (severe) obesity due to excess calories E66 .01 Active 967864458 Problem 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 Active 124680226 Problem COPD with exacerbation J44.1 Active 918858914 Problem half-way current use of insulin Z79.4 Active 228268133 Problem Type 2 diabetes mellitus without complications E11 .9 Active 454934107 Problem Type 2 diabetes mellitus with unspecified complications E11.8 Active 29434930 Problem Carpal tunnel syndrome of right wrist G56.01 Ac tive 79047096 Problem Acquired hypothyroidism E03.9 Active 57912172 2 Problem Primary osteoarthritis of left knee M17.12 Acti ve 714315235721834 Problem Generalized osteoarthrosis, involving multiple sites M15.9 Active 867422119 Problem Essential hypertension I10 Active 83751978 Problem Acquired absence of both cervix and uterus Z90.710 Active 478482310 Problem 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 Active 868089751 Problem Urinary incontinence, unspecified type R32 A ctive 831225597 Problem Medicare annual wellness visit, subsequent Z00.00 Active 360502834620928 ALLERGIES Allergen (clinical drug ingredient) Drug/Non Drug Allergy do cumented on EMR Reaction Allergy Type Onset Date Status sulfamethoxazole / trimethoprim Bactrim([facility] Code:[address]-30) Hives Drug Allergy Active metformin Metformin diarrhea Drug Allergy Active Sulfa (for allergy use only) Hives Drug Allergy Active ENCOUNTERS from 1945 to 2020-10-17 Encounter Location Date Provider Diagnosis [address] [address] Sep, Narcisa Turcios Type 2 diabetes mellitus with unspecifie d complications E11.8 ; half-way current use of insulin Z79.4 ; Essential hypertension I10 ; Mixed hyperlipidemia E78.2 and Anxiety state F41.1 IMMUNIZATIONS Vaccine Route Administration Date Status Influenza [...] Education Language: Question Answer Notes Languages spoken: Stateless Adventism: Question Answer Notes Adventism 33 None Sexual Hx: Question Answer Notes [...] Notes Start Da te End Date Status Advair Diskus 250-50 MCG/DOSE 1 puff Inhalation every 12 hrs Active Walker rolling, with seat and brakes walker DX: M15.9 walker for 30 Days Jul, Active Valsartan-Hydrochlorothiazide 160-25 MG 1 tablet Orally Once a day Active Glucose Monitor - Dx:I11.29 MACHINE four times daily for 30 days February, Active Humalog KwikPen 100 UNIT/ML 6 units, may increase by 1 unit per week if fs > 140 Subcutaneous Daily immediately with noon meal for 30 Days Active Famotidine 20 MG 1 tab Orally twice daily Active Blood Glucose Test - as directed In Vitro, one to uch twice daily DX: E11.8 on insulin for 50 Active Calcium 600 + D 600-400 MG-UNIT 1 tablet Orally twice a day for 90 Active Omeprazole 20 MG 1 capsule 30 minutes before morning meal Orally Once a day for 90 day(s) Sep, Active Lancets - as directed Dx: E11.9 twice daily for 30 day(s) Dec, Active Felodipine ER 5 MG 1 tablet Orally Once a day Active Pen [place] 32G X 4 MM dx: e11.9 subcutaneously three daily for 30 da y(s) Active Ipratropium-Albuterol 0.5-2.5 (3) MG/3ML 3 ml Inhalati on Six times a day... as needed Active HydrOXYzine HCl 25 MG 1 tablet as needed Orally every 8 hrs Active Victoza 1.8 mg 1.8mg injection SQ daily Active May Have - Dx: M15.9 Walker repair for 99 days Aug, 0 Active Levothyroxine Sodium 50 MCG 1 tablet every morning on an empty stomach Orally Once a day Active Gabapentin 300 MG 2 caps Orally Daily at bedtime for 30 Active Folic Acid 1 mg 1 tablet Orally Once a day for 30 Active Gabapentin 300 MG 2 caps Orally Daily at bedtime Active Pepcid 40 MG 1 tablet Orally bid for 90 day(s) Mar, 0 Active Aspir-81 81 MG 1 tablet Orally Once a day for 90 day(s) Active Depend Pant Extra Large 1 ea diag code: r32 (needs siz e xxl) needs a 2X dx code R32 as needed for incontinence MDD 24 for 30 days Jan, Active Drisdol 32449 UNIT 1 capsule Orally Once every 2 weeks with meal Active Lasix 20 MG 1 tablet Orally Once a day for 90 days Active Lipitor 40 MG 1 tablet Orally Once a day at BEDTIME Active ProAir HFA 108 (90 Base) MCG/ACT 2 puffs as needed Inhalation every 4 hrs Active Toujeo SoloStar 300 UNIT/ML 1 injection [...] Medical History CAD - NSS 03/2012 - [place] [facility] Medical History COPD, FEV1 1.67 09/13 Medical History hyperlipidemia Medical History HTN - neg NST 04/07, [facility] Medical History anxiety Medical History urinary freq [...] Treatment Notes Treatm ent Clinical Notes Sep, Type 2 diabetes mellitus wit h unspecified complications (ICD-10 - E11.8) Sep, half-way current use of insulin (ICD-10 - Z79.4 ) Sep, Essential hypertension (ICD-10 - I10) Sep, Mixed hyperlipidemia (ICD-10 - E78.2) Sep, Anxiety state (ICD-10 - F41.1) PLAN OF TREATMENT Next Appt Details 4 Weeks Reason:11/22/2020 at 3 pm Provider Name:Janice Russell, 2020-11-07 03:0 0:00 PM, [address] [place] [address], [phone], Provider Name:Narcisa Turcios, 03:00:00 PM, [address] [place], [address], Follow Up:4 Weeks11/22/2020 at 3 pm Insurance Providers Payer Name Payer Address Payer Phone Insured Name Patient Relati onship to Insured Coverage Start Date Coverage End Date [facility] [id number] [facility] [phone] ASHLEIGH GARCIA MEDICAID [facility] [address] [facility] [address] ASHLEIGH GARCIA
--- OUTSIDE RECORDS SUMMARY | 2020-12-12 06:44 | CCD | Continuity of Care Document ---
Author Author In[facility] D[facility] Organization Unknown Address [address] [place] [address], [address] [place] [address] Phone [phone] Care Team Providers Care Business Banking Sales Assistant Name Role Phone Chiara Godinez, Stanislav AUTM [phone] [place] ORDERING BOX OPERATOR, Janice AUTFauzia [phone] Problems Active Problems Provider Date Onychomycosis Uche [...] Daily AT Bedtime Unknown Calcium Carbonate-Vitamin D [id number]-Jnsq Tablets Take One Tablet By Mouth Twice [...] Daily Unkn own Vitamin D (Ergocalciferol) 1.25mg (96659 Ut) Capsules Take One Capsule By Mouth [...] Twice Daily Unknown Global Ease Inject Pen [place] [id number] 32G X 4 mm Misc Use as [...] Available Procedures Date Code Description Status 08/03/2020 85877 Debridement 6-10 Nails Electric Completed 08/03/2020 73433 Paring/Cut Benign Lesion 2 To 4 Completed 04/20/2020 71852 Debridement 6-10 Nails Electric Completed 04/20/2020 99140 Paring/Cutting Benign Single Les n Completed Medical Devices Description No Information Available Encounters Description No Information Available Assessments Date Code Description Provider 08/03/2020 B35.1 Tinea unguium Uche Muhammad, JAXON 08/03/2020 E11.59 Type 2 diabetes mellitus with ot her circulatory complications Uche Muhammad DPM 08/03/2020 L84 Corns and callosities Uche Muhammad DPM 04/20/2020 B35.1 Tinea unguium Uche Muhammad, JAXON 04/20/2020 E11.59 Type 2 diabetes mellitus with ot her circulatory complications Uche Muhammad DPM 04/20/2020 L84 Corns and callosities Uche Muhammad DPM Plan of Treatment Future Appointment(s):* 12/21/2020 2:30 pm - Uche Muhammad DPM at [place] [facility] Functional Status Description No Information Available Mental Status Description No Information Available Referrals Description No Information Available
--- OUTSIDE RECORDS SUMMARY | 2020-12-12 06:45 | CCD ---
Author Author [facility] Organization [facility] Address Unknown Phone Unavailable Care Team Providers Care Demand Inspector Name Role Phone Janice Russell Unavailable PROBLEMS Type Condition ICD9-CM Code EAT85-MY Code Onset Dates Condition S tatus SNOMED Code Notes Problem Allergic rhinitis, cause unspecified J30.9 Act dominik 18942261 Problem Personal history of noncompl iance with medical treatment, presenting hazards to health Z91.19 Active 4307499 Problem Arteriosclerosis of coronary artery I25.10 Acti ve 92099470 Problem Type II or unspecified type diabetes mellitus without mention of complication, not stated as uncontrolled E11.9 Active 90938042 Problem Paresthesia of right arm R20.2 Active 5021651 3 Problem Gastroesophageal reflux disease without esophagitis K21.9 Active 710929563 Problem Long-term current use of insulin for diabetes mellitus Z79.4 Active 617690891 Problem Age-related nuclear cataract of left eye H25.12 Active 37547231 Problem Age-related nuclear cataract of right eye H25.11 Active 13570235 Problem Controlled diabetes mellitus without complication, with long-term current use of insulin E11.9 Active 35547615 Problem Anxiety state F41.1 Active 775061789 Problem Vitamin D deficiency E55.9 Active 88181779 Problem Mixed hyperlipidemia E78.2 Active 665227758 Problem Chronic airway obstruction, not elsewhere classified J44.9 Active 77323065 Problem Body mass index (BMI) of 50-59.9 in adult Z68.43 Active 126563909 Problem Morbid (severe) obesity due to excess calories E66 .01 Active 958226172 Problem 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 Active 249054893 Problem COPD with exacerbation J44.1 Active 877841106 Problem intermediate teacher current use of insulin Z79.4 Active 315587432 Problem Type 2 diabetes mellitus without complications E11 .9 Active 007879625 Problem Type 2 diabetes mellitus with unspecified complications E11.8 Active 27283758 Problem Carpal tunnel syndrome of right wrist G56.01 Ac tive 14924356 Problem Acquired hypothyroidism E03.9 Active 17052653 2 Problem Primary osteoarthritis of left knee M17.12 Acti ve 218786137211461 Problem Generalized osteoarthrosis, involving multiple sites M15.9 Active 848904400 Problem Essential hypertension I10 Active 67709071 Problem Acquired absence of both cervix and uterus Z90.710 Active 418902548 Problem 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 Active 952910297 Problem Urinary incontinence, unspecified type R32 A ctive 224456386 Problem Medicare annual wellness visit, subsequent Z00.00 Active 326658566217603 ALLERGIES Allergen (clinical drug ingredient) Drug/Non Drug Allergy do cumented on EMR Reaction Allergy Type Onset Date Status sulfamethoxazole / trimethoprim Bactrim([facility] Code:[address]-08) Hives Drug Allergy Active metformin Metformin diarrhea Drug Allergy Active Sulfa (for allergy use only) Hives Drug Allergy Active ENCOUNTERS from 1945 to 2020-09-28 Encounter Location Date Provider Diagnosis [address] [address] Sep, 020 Janice Russell 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 ; Long-term current use of insulin for diabetes mellitus Z79.4 and Acquired hypothyroidism E03.9 IMMUNIZATIONS Vaccine Route Administration Date Status Influenza [...] Education Language: Question Answer Notes Languages spoken: Comoran Taoist: Question Answer Notes Taoist 33 None Sexual Hx: Question Answer Notes [...] FOR REFERRAL No Information VITAL SIGNS Weight 243 lbs Sep, Height 60.0 in Sep, BMI 47.45 kg/m2 Sep, Heart Rate 83 /min Sep, Respiratory Rate 20 /min Sep, Temperature 97.5 degrees Fahrenheit Sep, Oximetry 96 Sep, Blood pressure systolic 124 mm Hg Sep, Blood pressure diastolic 80 mm Hg Sep, MEDICATIONS Medication SIG (Take, Route, Frequency, Duration) Notes Start Da te End Date Status Levothyroxine Sodium 50 MCG 1 tablet every morning on an empty stomach Orally Once a day Active May Have - Dx: M15.9 Walker repair for 99 days Aug, 0 Active Famotidine 20 MG 1 tab Orally twice daily Active Celexa 20 MG 1 tablet Orally Once a day Active Advair Diskus 250-50 MCG/DOSE 1 puff Inhalation every 12 hrs Active Felodipine ER 5 MG 1 tablet Orally Once a day Active Folic Acid 1 mg 1 tablet Orally Once a day for 30 Active Valsartan-Hydrochlorothiazide 160-25 MG 1 tablet Orally Once a day Active Lipitor 40 MG 1 tablet Orally Once a day at BEDTIME Active Calcium 600 + D 600-400 MG-UNIT 1 tablet Orally twice a day for 90 Active Lasix 20 MG 1 tablet Orally Once a day for 90 days Active HydrOXYzine HCl 25 MG 1 tablet as needed Orally every 8 hrs Active ProAir HFA 108 (90 Base) MCG/ACT 2 puffs as needed Inhalation every 4 hrs Active Gabapentin 300 MG 2 caps Orally Daily at bedtime Active Blood Glucose Test - as directed In Vitro, one to uch twice daily DX: E11.8 on insulin for 50 Active Aspir-81 81 MG 1 tablet Orally Once a day for 90 day(s) Active Walker rolling, with seat and brakes walker DX: M15.9 walker for 30 Days Jul, Active Oxybutynin Chloride ER 5 MG 1 tablet Orally Once a day Active Omeprazole 20 MG 1 capsule 30 minutes before morning meal Orally Once a day for 90 day(s) Sep, Active Glucose Monitor - Dx:I11.29 MACHINE four times daily for 30 days February, Active Humalog KwikPen 100 UNIT/ML 6 units, may increase by 1 unit per week if fs > 140 Subcutaneous Daily immediately with noon meal for 30 Days Active Tylenol 500 mg 2 tabs (arthritic pain) only as needed Orally twice daily mdd 4 Active Drisdol 24671 UNIT 1 capsule Orally Once every 2 weeks with meal Active Toujeo SoloStar 300 UNIT/ML 1 injection 60 units daily subcutaneous 90 day(s) Subcutaneous Daily Active Ipratropium-Albuterol 0.5-2.5 (3) MG/3ML 3 ml Inhalati on Six times a day... as needed Active Victoza 1.8 mg 1.8mg injection SQ daily Active Gabapentin 300 MG 2 caps Orally Daily at bedtime for 30 Active Depend Pant Extra Large 1 ea diag code: r32 (needs siz e xxl) needs a 2X dx code R32 as needed for incontinence MDD 24 for 30 days Jan, Active Pepcid 40 MG 1 tablet Orally bid for 90 day(s) Mar, 0 Active Lancets - as directed Dx: E11.9 twice daily for 30 day(s) Dec, Active Pen Stetson 32G X 4 MM dx: e11.9 subcutaneously three daily for 30 da y(s) Active PROCEDURES No Information RESULTS No Results REASON FOR VISIT 6 Weeks (30min) (Reason: f/up with glucometer) MEDICAL (GENERAL) HISTORY Type Description Date Medical History ulcer? (no ulcer in EGD orUGI report 200 0) Medical History Type 2 DM (2000) Medical History CAD - NSS 03/2012 - [facility] Medical History COPD, FEV1 1.67 09/13 Medical History hyperlipidemia Medical History HTN - neg NST 04/07, [facility] Medical History anxiety Medical History urinary [...] Treatment Notes Treatm ent Clinical Notes Sep, Other diabetic neurological complication associated with type 2 diabetes mellitus (ICD-10 - E11.49) advised to monitor FFS and after noon meal . Increase short acting insulin at largest meal (mid day) and monitor arsh glucose readings. Advised to bring her glucometer and meds including pens to f/up visit and advised CCM appt. Sep, Long-term current use of ins ulin for diabetes mellitus (ICD-10 - Z79.4) Sep, Acquired hypothyroidism (ICD-10 - E03.9) check lab prior to f/up PLAN OF TREATMENT Medication Medication Name Sig Start Date Stop Date Victoza 1.8 mg 1.8mg injection SQ daily Toujeo SoloStar 300 UNIT/ML 1 injection 60 units daily subcutaneous 90 day(s) Subcutaneous Daily Humalog KwikPen 100 UNIT/ML 6 units, may increase by 1 unit per week if fs > 140 Subcutaneous Daily immediately with noon meal for 30 Days Gabapentin 300 MG 2 caps Orally Daily at bedtime Treatment Notes Assessment Notes Clinical Notes Other diabetic neurological complication associated with type 2 diabetes mellitus advised to monitor FFS and after noon me al . Increase short acting insulin at largest meal (mid day) and monitor arsh glucose readings. Advised to bring her glucometer and meds including pens to f/up visit and advised CCM appt. Acquired hypothyroidism check lab prior to f/up Future Test Test Name Order Date FREE T4 & TSH PANEL 20201031 Comprehensive Metabolic Profile (CMP) 20201031 HEMOGLOBIN A1c 20201031 MICROALBUMIN RANDOM 20201031 Next Appt Details 6 Weeks (30min) Reason:f/u after labs Provider Name:Narcisa Turcios, 03:00:00 PM, [address] [place], [address], Provider Name:Janice Russell, 2020-11-07 03:0 0:00 PM, [address] [place], [address], Follow Up:6 Weeks (30min)f/u after labs Insurance Providers Payer Name Payer Address Payer Phone Insured Name Patient Relati onship to Insured Coverage Start Date [facility]age End Date [facility] [address] [facility] [id number] ASHLEIGH GARCIA MEDICAID [facility] [address] [facility] [address] ASHLEIGH GARCIA self
--- OUTSIDE RECORDS SUMMARY | 2020-12-12 06:48 | CCD ---
Continuity of Care Document (CCD) Created on: 10/04/2020 Indu Estrada External Reference #: [id number] : 1945 Sex: Female Author Author Indu MUHAMMAD DPM Organization Unknown Address [address] [place] [address], [address] [place] [address] Phone [phone] Care Team Providers Care Art Specialist Name Role Phone Chiara Godinez, Stanislav AUTM [phone] Bimble SECOND WATCH SERGEANT, Janice AUTFauzia [phone] Problems Active Problems Provider Date Onychomycosis Uche [...] Daily AT Bedtime Unknown Calcium Carbonate-Vitamin D [id number] Tablets Take One Tablet By Mouth Twice [...] Daily Unkn own Vitamin D (Ergocalciferol) 1.25mg (72118 Ut) Capsules Take One Capsule By Mouth [...] Twice Daily Unknown Global Ease Inject Pen Rocky [id number] 32G X 4 mm Misc Use as [...] Available Procedures Date Code Description Status 08/03/2020 77637 Debridement 6-10 Nails Electric Completed 08/03/2020 14121 Paring/Cut Benign Lesion 2 To 4 Completed 04/20/2020 64107 Debridement 6-10 Nails Electric Completed 04/20/2020 98823 Paring/Cutting Benign Single Les n Completed Medical [...] Muhammad DPM Plan of Treatment Future Appointment(s):* 10/12/2020 2:30 pm - Uche Muhammad DPM at [facility] Functional Status Description No Information Available Mental Status Description No Information Available Referrals Description No Information Available
--- OUTSIDE RECORDS SUMMARY | 2020-12-12 06:49 | CCD ---
Author Author [facility] Organization [facility] Address Unknown Phone Unavailable Care Team Providers Care Advertiser Name Role Phone Wilmer CHRISTIANSON Unavailable Unavailable Wilmer CHRISTIANSON Unavailable Unavailable Wilmer CHRISTIANSON Unavailable Unavailable Wilmer CHRISTIANSON Unavailable Unavailable Wilmer CHRISTIANSON Unavailable Unavailable Wilmer CHRISTIANSON Unavailable Unavailable DRAZEK, I MARKO PA Unavailable Unavailable DRAZEK, I MARKO PA Unavailable Unavailable DRAZEK, I MARKO PA Unavailable Unavailable DRAZEK, I MARKO PA Unavailable Unavailable DRAZEK, I MARKO PA Unavailable Unavailable DRAZEK, I MARKO PA Unavailable Unavailable DRAZEK, I MARKO PA Unavailable Unavailable DRAZEK, I MARKO PA Unavailable Unavailable DRAZEK, I MARKO PA Unavailable Unavailable DRAZEK, I MARKO PA Unavailable Unavailable DRAZEK, I MARKO PA Unavailable Unavailable DRAZEK, I MARKO PA Unavailable Unavailable DRAZEK, I MARKO PA Unavailable Unavailable DRAZEK, I MARKO PA Unavailable Unavailable DRAZEK, I MARKO PA Unavailable Unavailable DRAZEK, I MARKO PA Unavailable Unavailable DRAZEK, I MARKO PA Unavailable Unavailable DRAZEK, I MARKO PA Unavailable Unavailable DRAZEK, I MARKO PA Unavailable Unavailable DRAZEK, I MARKO PA Unavailable Unavailable DRAZEK, I MARKO PA Unavailable Unavailable DRAZEK, I MARKO PA Unavailable Unavailable DRAZEK, I MARKO PA Unavailable Unavailable DRAZEK, I MARKO PA Unavailable Unavailable Fish, Lisa Mackay MD Unavailable Unavailable Fish, Lisa Mackay MD Unavailable Unavailable Fish, Lisa Mackay MD Unavailable Unavailable Fish, Lisa Mackay MD Unavailable Unavailable Fish, Lisa Mackay MD Unavailable Unavailable Fish, B Thompson BURTON Unavailable Unavailable Fish, Lisa Mackay MD Unavailable Unavailable Fish, B Thompson BURTON Unavailable Unavailable Fish, B Thompson BURTON Unavailable Unavailable Fish, Lisa Mackay MD Unavailable Unavailable Fish, Lisa Mackay MD Unavailable Unavailable Fish, Lisa Mackay MD Unavailable Unavailable Fish, Lisa Mackay MD Unavailable Unavailable Fish, Lisa Mackay MD Unavailable Unavailable Fish, Lisa Mackay MD Unavailable Unavailable Fish, Lisa Mackay MD Unavailable Unavailable Fish, Lisa Mackay MD Unavailable Unavailable Fish, Lisa Mackay MD Unavailable Unavailable Fish, Lisa Mackay MD Unavailable Unavailable Fish, Lisa Mackay MD Unavailable Unavailable Fish, Lisa Mackay MD Unavailable Unavailable Fish, Lisa Mackay MD Unavailable Unavailable Fish, Lisa Mackay MD Unavailable Unavailable Fish, Lisa Mackay MD Unavailable Unavailable Fish, B Thompson BURTON Unavailable Unavailable Fish, Lisa Mackay MD Unavailable Unavailable Fish, Lisa Mackay MD Unavailable Unavailable Fish, Lisa Mackay MD Unavailable Unavailable Fish, Lisa Mackay MD Unavailable Unavailable Fish, Lisa Mackay MD Unavailable Unavailable Fish, B Thompson BURTON Unavailable Unavailable Fish, B Thompson BURTON Unavailable Unavailable Fish, B Thompson BURTON Unavailable Unavailable Fish, B Thompson MD Unavailable Unavailable Fish, B Thompson MD Unavailable Unavailable Fish, B Thompson MD Unavailable Unavailable Fish, B Thompson MD Unavailable Unavailable Fish, B Thompson MD Unavailable Unavailable Fish, B Thompson MD Unavailable Unavailable Fish, B Thompson MD Unavailable Unavailable Fish, B Thompson MD Unavailable Unavailable Fish, B Thompson MD Unavailable Unavailable Fish, B Thompson MD Unavailable Unavailable Fish, B Thompson MD Unavailable Unavailable Fish, B Thompson MD Unavailable Unavailable Fish, B Thompson MD Unavailable Unavailable Fish, B Thompson MD Unavailable Unavailable Fish, B Thompson MD Unavailable Unavailable Fish, B Thompson MD Unavailable Unavailable Fish, B Thompson MD Unavailable Unavailable Fish, B Thompson MD Unavailable Unavailable Fish, B Thompson MD Unavailable Unavailable Fish, B Htompson MD Unavailable Unavailable Re-disclosure Warning The records that you are about to access may contain information from federally-assisted alcohol or drug abuse programs. If such information is present, then the following federally mandated warning applies: This information has been disclosed to you from records protected by federal confidentiality rules (42 CFR part 2). The federal rules prohibit you from making any further disclosure of this information unless further disclosure is expressly permitted by the written consent of the person to whom it pertains or as otherwise permitted by 42 CFR part 2. A general authorization for the release of medical or other information is NOT sufficient for this purpose. The Federal rules restrict any use of the information to criminally investigate or prosecute any alcohol or drug abuse patient.The records that you are about to access may contain highly sensitive health information, the redisclosure of which is protected by Article 27-F of the [facility] Public Health law. If you continue you may have access to information: Regarding HIV / AIDS; Provided by facilities licensed or operated by the [facility] Office of Mental Health; or Provided by the [facility] Office for People With Developmental Disabilities. If such information is present, then the following [facility] mandated warning applies: This information has been disclosed to you from confidential records which are protected by state law. State law prohibits you from making any further disclosure of this information without the specific written consent of the person to whom it pertains, or as otherwise permitted by law. Any unauthorized further disclosure in violation of state law may result in a fine or [place] health care [facility] sentence or both. A general authorization for the release of medical or other information is NOT sufficient authorization for further disc losure. Allergies and Adverse Reactions Type Description Substance Reaction Status Data Source(s ) Drug allergy Bactrim sulfamethoxazole / trimethoprim Hives Ac tive eCW1 ([facility]) Family History Family Member Name Family Member Gender Family Member Status Date o f Status Description Data Source(s) Unknown Female Problem MEDENT ([facility]) Unknown Female Problem MEDENT ([facility]) Unknown Female Problem MEDENT ([facility]) Unknown Female Problem MEDENT ([facility]) Unknown Female Problem MEDENT ([facility]) Unknown Female Problem MEDENT ([facility]) Encounters Encounter Providers Location Date Indications Data Source(s ) Office Visit Attender: Thompson Grigsby MD Physical Therapy 2020 12:45:00 PM EST MEDENT ([facility]) [place]patient [address] [facility] [address] 11/22/2020 12:00:00 AM EST eCW1 ([facility]) OFFICE OUTPATIENT VISIT 15 MINUTES Attender: MARKO ACOSTA Phys ical Therapy 11/15/2020 02:30:00 PM EST MEDENT ([facility]) Outpatient [address] [facility] [address] 11/07/2020 12:00:00 AM EST eCW1 ([facility]) Unknown [address] [facility] [address] 11/07/2020 12:00:00 AM EST eCW1 ([facility]) Unknown [address] [facility] [address] 10/23/2020 12:00:00 AM EST eCW1 ([facility]) Outpatient [address] [facility] [address] 10/16/2020 12:00:00 AM EST eCW1 ([facility]) Office Visit, Est Pt., Level 3 PC [address] [place] [address] 09/26/2020 12:00:00 AM EST eCW1 ([facility]) Unknown [address] [facility] [address] 09/07/2020 12:00:00 AM EST eCW1 ([facility]) Unknown [address] [facility] [address] 08/23/2020 12:00:00 AM EDT eCW1 ([facility]) [place]patient [address] [facility] [address] 08/15/2020 12:00:00 AM EDT eCW1 ([facility]) Unknown [address] [facility] [address] 08/02/2020 12:00:00 AM EDT eCW1 ([facility]) Unknown [address] [facility] [address] 05/16/2020 12:00:00 AM EDT eCW1 ([facility]) Office Visit, Est Pt., Level 2 FC [address] [place] [address] 05/09/2020 12:00:00 AM EDT eCW1 ([facility]) Unknown [address] [facility] [address] 05/08/2020 12:00:00 AM EDT eCW1 ([facility]) Unknown [address] [facility] [address] 04/05/2020 12:00:00 AM EDT eCW1 ([facility]) [facility] [address] [facility] [address] 03/22/2020 12:00:00 AM EDT eCW1 ([facility]) [facility] [address] [facility] [address] 03/14/2020 12:00:00 AM EDT eCW1 ([facility]) [facility] [address] [facility] [address] 02/28/2020 12:00:00 AM EDT eCW1 ([facility]) [facility] [address] [facility] [address] 02/10/2020 12:00:00 AM EDT eCW1 ([facility]) [facility] [address] [place] [address], [place] [address] 02/10/2020 12:00:00 AM EDT eCW1 ([facility]) [facility] [address] [place] [address], [place] [address] 02/09/2020 12:00:00 AM EDT eCW1 ([facility]) [facility] [address] [place] [address], [place] [address] 01/05/2020 12:00:00 AM EDT eCW1 ([facility]) [facility] [address] [place] [address], [place] [address] 12/16/2019 12:00:00 AM EST eCW1 ([facility]) [address] [address] 11/19/2019 12:00:00 AM EST eCW1 ([facility]) [address] [address] 11/10/2019 12:00:00 AM EST eCW1 ([facility]) [address] [address] 11/04/2019 12:00:00 AM EST eCW1 ([facility]) [address] [address] 10/18/2019 12:00:00 AM EST eCW1 ([facility]) Immunizations Vaccine Date Status Description Data Source(s) influenza, recombinant, quadrIvalent,injectable, prese rvative free 08/15/2020 01:06:00 PM EDT completed eCW1 ([facility]) influenza, recombinant, quadrIvalent,injectable, prese rvative free 08/15/2020 01:06:00 PM EDT completed eCW1 ([facility]) influenza, recombinant, quadrIvalent,injectable, prese rvative free 08/15/2020 01:06:00 PM EDT completed eCW1 ([facility]) influenza, recombinant, quadrIvalent,injectable, prese rvative free 08/15/2020 01:06:00 PM EDT completed eCW1 ([facility]) influenza, recombinant, quadrIvalent,injectable, prese rvative free 08/15/2020 01:06:00 PM EDT completed eCW1 ([facility]) influenza, recombinant, quadrIvalent,injectable, prese rvative free 08/15/2020 01:06:00 PM EDT completed eCW1 ([facility]) influenza, recombinant, quadrIvalent,injectable, prese rvative free 08/15/2020 01:06:00 PM EDT completed eCW1 ([facility]) influenza, recombinant, quadrIvalent,injectable, prese rvative free 08/15/2020 01:06:00 PM EDT completed eCW1 ([facility]) influenza, recombinant, quadrIvalent,injectable, prese rvative free 08/15/2020 01:06:00 PM EDT completed eCW1 ([facility]) Medications Medication Brand Name Start Date Product Form Dose Route Admi nistrative Instructions Pharmacy Instructions Status Indications Reaction Description Data Source(s) May Have - UNK 09/07/2020 12:00:00 AM EST active May Have - eCW1 ([facility]) May Have - UNK 09/07/2020 12:00:00 AM EST active May Have - eCW1 ([facility]) May Have - UNK 09/07/2020 12:00:00 AM EST active May Have - eCW1 ([facility]) May Have - UNK 09/07/2020 12:00:00 AM EST active May Have - eCW1 ([facility]) May Have - UNK 09/07/2020 12:00:00 AM EST active May Have - eCW1 ([facility]) May Have - UNK 09/07/2020 12:00:00 AM EST active May Have - eCW1 ([facility]) May Have - UNK 09/07/2020 12:00:00 AM EST active May Have - eCW1 ([facility]) 3 ML Insulin Lispro 100 UNT/ML Pen Injec tor [Humalog] Humalog KwikPen 100 UNIT/ML Humalog KwikPen 100 UNIT/ML 08/15/2020 12:00:00 AM EDT active Humalog KwikPen 100 UNIT/ML eCW1 ([facility]) 3 ML Insulin Lispro 100 UNT/ML Pen Injec tor [Humalog] Humalog KwikPen 100 UNIT/ML Humalog KwikPen 100 UNIT/ML 08/15/2020 12:00:00 AM EDT active Humalog KwikPen 100 UNIT/ML eCW1 ([facility]) 3 ML Insulin Lispro 100 UNT/ML Pen Injec tor [Humalog] Humalog KwikPen 100 UNIT/ML Humalog KwikPen 100 UNIT/ML 08/15/2020 12:00:00 AM EDT active Humalog KwikPen 100 UNIT/ML eCW1 ([facility]) Famotidine 40 MG Oral Tablet [Pepcid] Pepcid 40 MG Pepcid 40 MG 04/05/2020 12:00:00 AM EDT 1.0 {tablet} active Pe pcid 40 MG eCW1 ([facility]) Famotidine 40 MG Oral Tablet [Pepcid] Pepcid 40 MG Pepcid 40 MG 04/05/2020 12:00:00 AM EDT 1.0 {tablet} active Pe pcid 40 MG eCW1 ([facility]) Bacitracin 0.5 UNT/MG Topical Ointment Bacitracin 500 UNIT/GM Bacitracin 500 UNIT/GM 04/05/2020 12:00:00 AM EDT active Bacitracin 500 UNIT/GM eCW1 ([facility]) Famotidine 40 MG Oral Tablet [Pepcid] Pepcid 40 MG Pepcid 40 MG 04/05/2020 12:00:00 AM EDT 1.0 {tablet} active Pe pcid 40 MG eCW1 ([facility]) Famotidine 40 MG Oral Tablet [Pepcid] Pepcid 40 MG Pepcid 40 MG 04/05/2020 12:00:00 AM EDT 1.0 {tablet} active Pe pcid 40 MG eCW1 ([facility]) Famotidine 40 MG Oral Tablet [Pepcid] Pepcid 40 MG Pepcid 40 MG 04/05/2020 12:00:00 AM EDT 1.0 {tablet} active Pe pcid 40 MG eCW1 ([facility]) Famotidine 40 MG Oral Tablet [Pepcid] Pepcid 40 MG Pepcid 40 MG 04/05/2020 12:00:00 AM EDT 1.0 {tablet} active Pe pcid 40 MG eCW1 ([facility]) Hydroxyzine Hydrochloride 25 MG Oral Tablet HydrOXYzin e HCl 25 MG HydrOXYzine HCl 25 MG 04/05/2020 12:00:00 AM EDT 1.0 {tablet_as_needed} active HydrOXYzine HCl 25 MG eCW1 ([facility]) Furosemide 20 MG Oral Tablet [Lasix] Lasix 20 MG Lasix 20 MG 04/05/2020 12:00:00 AM EDT 1.0 {tablet} active Lasix 20 M G eCW1 ([facility]) Furosemide 20 MG Oral Tablet [Lasix] Lasix 20 MG Lasix 20 MG 04/05/2020 12:00:00 AM EDT 1.0 {tablet} active Lasix 20 M G eCW1 ([facility]) Famotidine 40 MG Oral Tablet [Pepcid] Pepcid 40 MG Pepcid 40 MG 04/05/2020 12:00:00 AM EDT 1.0 {tablet} active Pe pcid 40 MG eCW1 ([facility]) Hydroxyzine Hydrochloride 25 MG Oral Tablet HydrOXYzin e HCl 25 MG HydrOXYzine HCl 25 MG 04/05/2020 12:00:00 AM EDT 1.0 {tablet_as_needed} active HydrOXYzine HCl 25 MG eCW1 ([facility]) Famotidine 40 MG Oral Tablet [Pepcid] Pepcid 40 MG Pepcid 40 MG 04/05/2020 12:00:00 AM EDT 1.0 {tablet} active Pe pcid 40 MG eCW1 ([facility]) Hydroxyzine Hydrochloride 25 MG Oral Tablet HydrOXYzin e HCl 25 MG HydrOXYzine HCl 25 MG 04/05/2020 12:00:00 AM EDT 1.0 {tablet_as_needed} active HydrOXYzine HCl 25 MG eCW1 ([facility]) Famotidine 40 MG Oral Tablet [Pepcid] Pepcid 40 MG Pepcid 40 MG 04/05/2020 12:00:00 AM EDT 1.0 {tablet} active Pe pcid 40 MG eCW1 ([facility]) Famotidine 40 MG Oral Tablet [Pepcid] Pepcid 40 MG Pepcid 40 MG 04/05/2020 12:00:00 AM EDT 1.0 {tablet} active Pe pcid 40 MG eCW1 ([facility]) Furosemide 20 MG Oral Tablet [Lasix] Lasix 20 MG Lasix 20 MG 04/05/2020 12:00:00 AM EDT 1.0 {tablet} active Lasix 20 M G eCW1 ([facility]) Famotidine 40 MG Oral Tablet [Pepcid] Pepcid 40 MG Pepcid 40 MG 04/05/2020 12:00:00 AM EDT 1.0 {tablet} active Pe pcid 40 MG eCW1 ([facility]) Bacitracin 0.5 UNT/MG Topical Ointment Bacitracin 500 UNIT/GM Bacitracin 500 UNIT/GM 04/05/2020 12:00:00 AM EDT active Bacitracin 500 UNIT/GM eCW1 ([facility]) Furosemide 20 MG Oral Tablet [Lasix] Lasix 20 MG Lasix 20 MG 04/05/2020 12:00:00 AM EDT 1.0 {tablet} active Lasix 20 M G eCW1 ([facility]) Famotidine 40 MG Oral Tablet [Pepcid] Pepcid 40 MG Pepcid 40 MG 04/05/2020 12:00:00 AM EDT 1.0 {tablet} active Pe pcid 40 MG eCW1 ([facility]) Famotidine 40 MG Oral Tablet [Pepcid] Pepcid 40 MG Pepcid 40 MG 04/05/2020 12:00:00 AM EDT 1.0 {tablet} active Pe pcid 40 MG eCW1 ([facility]) Hydroxyzine Hydrochloride 25 MG Oral Tablet HydrOXYzin e HCl 25 MG HydrOXYzine HCl 25 MG 04/05/2020 12:00:00 AM EDT 1.0 {tablet_as_needed} active HydrOXYzine HCl 25 MG eCW1 ([facility]) Hydroxyzine Hydrochloride 25 MG Oral Tablet HydrOXYzin e HCl 25 MG HydrOXYzine HCl 25 MG 04/05/2020 12:00:00 AM EDT 1.0 {tablet_as_needed} active HydrOXYzine HCl 25 MG eCW1 ([facility]) Furosemide 20 MG Oral Tablet [Lasix] Lasix 20 MG Lasix 20 MG 04/05/2020 12:00:00 AM EDT 1.0 {tablet} active Lasix 20 M G eCW1 ([facility]) Famotidine 40 MG Oral Tablet [Pepcid] Pepcid 40 MG Pepcid 40 MG 04/05/2020 12:00:00 AM EDT 1.0 {tablet} active Pe pcid 40 MG eCW1 ([facility]) Glucose Monitor - UNK 03/14/2020 12:00:00 AM EDT active Glucose Monitor - eCW1 ([facility]) Glucose Monitor - UNK 03/14/2020 12:00:00 AM EDT active Glucose Monitor - eCW1 ([facility]) Glucose Monitor - K 03/14/2020 12:00:00 AM EDT active Glucose Monitor - eCW1 ([facility]) Glucose Monitor - UNK 03/14/2020 12:00:00 AM EDT active Glucose Monitor - eCW1 ([facility]) Glucose Monitor - K 03/14/2020 12:00:00 AM EDT active Glucose Monitor - eCW1 ([facility]) Glucose Monitor - K 03/14/2020 12:00:00 AM EDT active Glucose Monitor - eCW1 ([facility]) Glucose Monitor - K 03/14/2020 12:00:00 AM EDT active Glucose Monitor - eCW1 ([facility]) Glucose Monitor - UNK 03/14/2020 12:00:00 AM EDT active Glucose Monitor - eCW1 ([facility]) Glucose Monitor - K 03/14/2020 12:00:00 AM EDT active Glucose Monitor - eCW1 ([facility]) Glucose Monitor - UNK 03/14/2020 12:00:00 AM EDT active Glucose Monitor - eCW1 ([facility]) Glucose Monitor - UNK 03/14/2020 12:00:00 AM EDT active Dx:I11.29 eCW1 ([facility]) Glucose Monitor - UNK 03/14/2020 12:00:00 AM EDT active Glucose Monitor - eCW1 ([facility]) Glucose Monitor - K 03/14/2020 12:00:00 AM EDT active Glucose Monitor - eCW1 ([facility]) Glucose Monitor - K 03/14/2020 12:00:00 AM EDT active Glucose Monitor - eCW1 ([facility]) Glucose Monitor - K 03/14/2020 12:00:00 AM EDT active Glucose Monitor - eCW1 ([facility]) Insurance Providers Payer name Policy type / Coverage type Policy ID Covered libertarian ID Covered libertarian's relationship to aguirre Policy Aguirre Plan Information EMEDNY [id number] SP [id number] [facility] [id number] SP [id number] [facility] [id number] SP [id number] MEDICARE COMPLETE [id number] SP [id number] MEDICAID [id number] SP [id number] [facility] O [id number] S [id number] MEDICAID M [id number] ANSI-Medicaid [id number] ANSI-Not a Secondary Insurance [id number] [place] Med[place] [id number] Self [id number] [facility] Medicare Dual Complet Commercial [id number] Self [id number] ANSI-Not a Secondary Insurance [id number] ANSI-Medicaid [id number] Medicaid Medicaid [id number] Self [id number] [facility] Comm Dual Plan Commercial [id number] Self [id number] [place] [id number] Self [id number] [facility] Medicare Dual Complet Commercial [id number] Self [id number] ANSI-Medicaid [id number] ANSI-Not a Secondary Insurance [id number] ANSI-Not a Secondary Insurance [id number] ANSI-Medicaid [id number] ANSI-Medicaid [id number] ANSI-Not a Secondary Insurance [id number] Medicaid Medicaid [id number] Self [id number] [facility] Comm Dual Plan Commercial [id number] Self [id number] [place] [id number] Self [id number] [facility] Medicare Dual Complet Commercial [id number] Self [id number] [place] [id number] Self [id number] [facility] Medicare Dual Complet Commercial [id number] Self [id number] ANSI-Not a Secondary Insurance [id number] ANSI-Medicaid [id number] [place] [id number] Self [id number] [facility] Medicare Dual Complet Commercial [id number] Self [id number] Medicaid [place] Med[place] Part B [id number] Self [id number] [facility] Medicare Dual Complet Commercial [id number] Self [id number] Medicaid Medicaid [id number] Self [id number] [facility] Comm Dual Plan Commercial [id number] Self [id number] ANSI-Not a Secondary Insurance [id number] ANSI-Medicaid [id number] Medicaid Medicaid [id number] Self [id number] [facility] Comm Dual Plan Commercial [id number] Self [id number] Medicaid Medicaid [id number] Self [id number] [facility] Comm Dual Plan Commercial [id number] Self [id number] ANSI-Not a Secondary Insurance [id number] ANSI-Medicaid [id number] ANSI-Not a Secondary Insurance [id number] ANSI-Medicaid [id number] ANSI-Medicaid [id number] ANSI-Not a Secondary Insurance [id number] ANSI-Medicaid [id number] ANSI-Not a Secondary Insurance [id number] ANSI-Medicaid [id number] ANSI-Not a Secondary Insurance [id number] Medicaid Medicaid [id number] Self [id number] [facility] Dual Plan Commercial [id number] Self [id number] ANSI-Medicaid [id number] ANSI-Not a Secondary Insurance [id number] ANSI-Medicaid [id number] ANSI-Not a Secondary Insurance [id number] Medicaid Medicaid [id number] Self [id number] [facility] Comm Dual Plan Commercial [id number] Self [id number] ANSI-Medicaid [id number] ANSI-Not a Secondary Insurance [id number] Blue Shield MCR Advantage Medigap Part B [id number] Self [id number] Blue Shield MCR Advantage Medigap Part B [id number] Self [id number] [place] [id number] Self [id number] Blue Shield MCR Advantage Medigap Part B [id number] Self [id number] [facility] Medigap Part B [id number] Self [id number] [facility] Medicare Dual Complete Commercial [id number] Self [id number] ANSI-Medicaid [id number] ANSI-Not a Secondary Insurance [id number] ANSI-Medicaid [id number] ANSI-Not a Secondary Insurance [id number] Medicaid Medicaid [id number] Self [id number] [facility] Comm Dual Plan Commercial [id number] Self [id number] Medicaid Medicaid [id number] Self [id number] [facility] Comm Dual Plan Commercial [id number] Self [id number] Blue Shield MCR Advantage Medigap Part B [id number] Self [id number] Blue Shield MCR Advantage Medigap Part B [id number] Self [id number] [place] [id number] Self [id number] Medicaid Medicaid [id number] Self [id number] [facility] Comm Dual Plan Commercial [id number] Self [id number] MEDICAID [id number] SP [id number] Medicaid Medicaid [id number] Self [id number] [facility] Comm Dual Plan Commercial [id number] Self [id number] Medicaid Medicaid [id number] Self [id number] [facility] Comm Dual Plan Commercial [id number] Self [id number] Medicaid Medicaid [id number] Self [id number] [facility] Comm Dual Plan Commercial [id number] Self [id number] Blue Shield MCR Advantage Medigap Part B [id number] Self [id number] Blue Shield MCR Advantage Medigap Part B [id number] Self [id number] [place] [id number] Self [id number] MEDICAID [id number] SP [id number] [facility] [place] [id number] SP [id number] MEDICAID [id number] SP [id number] Medicaid Medicaid [id number] Self [id number] [facility] Comm Dual Plan Commercial [id number] Self [id number] Medicaid Medicaid [id number] Self [id number] [facility] Comm Dual Plan Commercial [id number] Self [id number] MEDICAID [id number] SP [id number] [facility] Comm Dual Plan Commercial Self Medicaid Medicaid 2 1 Self 2 1 Blue Shield MCR Advantage Medigap Part B [id number] Self [id number] Blue Shield MCR Advantage Medigap Part B [id number] Self [id number] Blue Shield MCR Advantage Medigap Part B Self [facility] Medigap Part [place]ig[place] Part B Self [facility] Medicare Dual Complete Commercial [id number] Self [id number] MEDICARE [id number] SP [id number] A Excellus Medigap Part B Self Medicare Medicare Primary Self EXCELLUS BCBS P [id number] S [id number] [id number] EXCELLUS BCBS P [id number] S VYM [id number] MEDICARE BLUE PPO 306 [id number] SP [id number] MEDICARE COMPLETE [id number] SP [id number] MEDICARE BLUE PPO 306 [id number] SP [id number] MEDICARE BLUE PPO 306 [id number] SP [id number] MEDICARE BLUE PPO 306 UNAVAILABLE SP UNAVAILABLE MEDICARE BLUE PPO P [id number] S [id number] MEDICARE COMPLETE [id number] SP [id number] MEDICARE COMPLETE [id number] SP [id number] EVERCARE [id number] SP [id number] MEDICARE UNAVAILABLE UNAVAILA BLE MEDICAID [id number] SP [id number] MEDICAID [id number] SP [id number] A Problems, Conditions, and Diagnoses Code Display Name Description Problem Type Effective Dates Data Source(s) M17.12 [id number] Primary osteoarthritis of left knee Pr oblem 11/10/2019 12:00:00 AM EST eCW1 ([facility]) M17.12 [id number] Primary osteoarthritis of left knee Pr oblem 11/10/2019 12:00:00 AM EST eCW1 ([facility]) Surgeries/Procedures Procedure Description Date Indications Data Source(s) ARTHROCENTESIS ASPIR&/INJECTION MAJOR JT/BURSA 021 12:00:00 AM EST MEDENT ([facility] ) RADIOLOGIC EXAMINATION KNEE 3 VIEWS 11/15/2020 12:00:0 0 AM EST MEDENT ([facility] ) PARING/CUTTING BENIGN HYPERKERATOTIC LESION 2-4 2019 12:00:00 AM EST MEDENT ([facility] DEBRIDEMENT NAIL ANY METHOD 6/> 10/12/2020 12:00:00 AM EST MEDENT ([facility] Immunization: Flublok Quadrivalent (18 years & older) 0.5mL IM (Influenza) 08/15/2020 12:00:00 AM EDT eCW1 ([facility]) PARING/CUTTING BENIGN HYPERKERATOTIC LESION 2-4 2019 12:00:00 AM EDT MEDENT ([facility] DEBRIDEMENT NAIL ANY METHOD 08/03/2020 12:00:00 AM EDT MEDENT ([facility] PARING/CUTTING BENIGN HYPERKERATOTIC LESION 1 04/20/20 12:00:00 AM EDT MEDENT ([facility] DEBRIDEMENT NAIL ANY METHOD 04/20/2020 12:00:00 AM EDT MEDENT ([facility] PARING/CUTTING BENIGN HYPERKERATOTIC LESION 1 12/07/19 12:00:00 AM EST MEDENT ([facility] DEBRIDEMENT NAIL ANY METHOD 12/07/2019 12:00:00 AM EST MEDENT ([facility] Office Visit, Est Pt., Level 4 PC 11/10/2019 12:00:00 AM EST eCW1 ([facility]) Office Visit, Est Pt., Level 2 FC 11/10/2019 12:00:00 AM EST eCW1 ([facility]) NO CHARGE VISIT 11/04/2019 12:00:00 AM EST eCW1 ([facility]) Results ID Date Data Source [id number] 12/07/2020 01:00:00 PM EST [facility] Name Value Range Interpretation Code Description Data Maryan rce(s) Supporting Document(s) SARS coronavirus 2 RNA Not Detected [facility] [place] This lab was ordered by [facility] and reported by [facility]. ID Date Data Source [id number] 11/29/2020 01:20:00 PM EST MEDENT ([facility] ) Name Value Range Interpretation Code Description Data Maryan rce(s) Supporting Document(s) Laboratory test finding (navigational concept) Laboratory test result MEDENT ([facility]) Procedure Social History Code Duration Value Status Description Data Source(s ) Smoking 11/15/2020 12:00:00 AM EST Patient is a former smoker completed Patient is a former smoker MEDENT ([facility]) Smoking 11/07/2020 12:00:00 AM EST Former Smoker completed Former Smoker eCW1 ([facility]) Smoking 11/07/2020 12:00:00 AM EST Former Smoker completed Former Smoker eCW1 ([facility]) Smoking 11/07/2020 12:00:00 AM EST Former Smoker completed Former Smoker eCW1 ([facility]) Smoking 09/26/2020 12:00:00 AM EST Former Smoker completed Former Smoker eCW1 ([facility]) Smoking 09/26/2020 12:00:00 AM EST Former Smoker completed Former Smoker eCW1 ([facility]) Smoking 09/26/2020 12:00:00 AM EST Former Smoker completed Former Smoker eCW1 ([facility]) Smoking 08/15/2020 12:00:00 AM EDT Former Smoker completed Former Smoker eCW1 ([facility]) Smoking 08/15/2020 12:00:00 AM EDT Former Smoker completed Former Smoker eCW1 ([facility]) Smoking 08/15/2020 12:00:00 AM EDT Former Smoker completed Former Smoker eCW1 ([facility]) Smoking 05/09/2020 12:00:00 AM EDT Former Smoker completed Former Smoker eCW1 ([facility]) Smoking 05/09/2020 12:00:00 AM EDT Former Smoker completed Former Smoker eCW1 ([facility]) Smoking 05/09/2020 12:00:00 AM EDT Former Smoker completed Former Smoker eCW1 ([facility]) Smoking 04/05/2020 12:00:00 AM EDT Former Smoker completed Former Smoker eCW1 ([facility]) Smoking 04/05/2020 12:00:00 AM EDT Former Smoker completed Former Smoker eCW1 ([facility]) Vital Signs ID Date Data Source UNK Name Value Range Interpretation Code Description Data Source(s) Body mass index (BMI) [Ratio] 46.3 kg/m2 46.3 k g/m2 MEDENT ([facility]) Body weight 237.00 [lb_av] 237.00 [lb_av] MEDEN T ([facility]) Body height 60 [in_i] 60 [in_i] MEDENT ([facility]) 5'0" Body temperature 97.1 [degF] 97.1 [degF] MEDENT ([facility]) Body mass index (BMI) [Ratio] 37.8 kg/m2 37.8 k g/m2 MEDENT ([facility]) Body weight 200.00 [lb_av] 200.00 [lb_av] MEDEN T ([facility]) Body height 61 [in_i] 61 [in_i] MEDENT ([facility]) 5'1" Body temperature 96.1 [degF] 96.1 [degF] MEDENT ([facility]) Diastolic blood pressure 62 mm[Hg] 62 mm[Hg] eCW1 ([facility]) Systolic blood pressure 120 mm[Hg] 120 mm[Hg] e CW1 ([facility]) Body temperature 96.4 [degF] 96.4 [degF] eCW1 ( [facility]) Respiratory rate 20 /min 20 /min eCW1 ([facility]) Heart rate 74 /min 74 /min eCW1 ([facility]) Body mass index (BMI) [Ratio] 48.23 kg/m2 48.23 kg/m2 eCW1 ([facility]) Body height 60.0 [in_i] 60.0 [in_i] eCW1 ([facility]) Body weight 247 [lb_av] 247 [lb_av] eCW1 ([facility]) Diastolic blood pressure 80 mm[Hg] 80 mm[Hg] eCW1 ([facility]) Systolic blood pressure 124 mm[Hg] 124 mm[Hg] e CW1 ([facility]) Body temperature 97.5 [degF] 97.5 [degF] eCW1 ( [facility]) Respiratory rate 20 /min 20 /min eCW1 ([facility]) Heart rate 83 /min 83 /min eCW1 ([facility]) Body mass index (BMI) [Ratio] 47.45 kg/m2 47.45 kg/m2 eCW1 ([facility]) Body height 60.0 [in_i] 60.0 [in_i] eCW1 ([facility]) Body weight 243 [lb_av] 243 [lb_av] eCW1 ([facility]) Diastolic blood pressure 68 mm[Hg] 68 mm[Hg] eCW1 ([facility]) Systolic blood pressure 120 mm[Hg] 120 mm[Hg] e CW1 ([facility]) Body temperature 97 [degF] 97 [degF] eCW1 ([facility]) Respiratory rate 20 /min 20 /min eCW1 ([facility]) Heart rate 84 /min 84 /min eCW1 ([facility]) Body mass index (BMI) [Ratio] 48.43 kg/m2 48.43 kg/m2 eCW1 ([facility]) Body height 60.0 [in_i] 60.0 [in_i] eCW1 ([facility]) Body weight 248 [lb_av] 248 [lb_av] eCW1 ([facility]) Diastolic blood pressure 68 mm[Hg] 68 mm[Hg] eCW1 ([facility]) Systolic blood pressure 118 mm[Hg] 118 mm[Hg] e CW1 ([facility]) Body temperature 98.6 [degF] 98.6 [degF] eCW1 ( [facility]) Respiratory rate 18 /min 18 /min eCW1 ([facility]) Heart rate 65 /min 65 /min eCW1 ([facility]) Body mass index (BMI) [Ratio] 51.98 kg/m2 51.98 kg/m2 W1 ([facility]) Body height 60.0 [in_i] 60.0 [in_i] eCW1 ([facility]) Body weight 266.2 [lb_av] 266.2 [lb_av] eCW1 ([facility]) Diastolic blood pressure 78 mm[Hg] 78 mm[Hg] eCW1 ([facility]) Systolic blood pressure 126 mm[Hg] 126 mm[Hg] e CW1 ([facility]) Body temperature 97.8 [degF] 97.8 [degF] eCW1 ( [facility]) Respiratory rate 18 /min 18 /min eCW1 ([facility]) Heart rate 78 /min 78 /min eCW1 ([facility]) Body mass index (BMI) [Ratio] 51.94 kg/m2 51.94 kg/m2 eCW1 ([facility]) Body height 60.0 [in_us] 60.0 [in_us] eCW1 ([facility]) Body weight Measured 266.0 [lb_av] 266.0 [lb_av ] eCW1 ([facility]) Patient Treatment Plan of Care Planned Activity Planned Date Details Description Data Source (s) February - 09/07/2020 12:00:00 AM EST e CW1 ([facility]) 3 ML Insulin Lispro 100 UNT/ML Pen Injector [Humalog] 08/15/2020 12:00:00 AM EDT eCW1 ([facility]) 3 ML Insulin Lispro 100 UNT/ML Pen Injector [Humalog] 08/15/2020 12:00:00 AM EDT eCW1 ([facility]) 3 ML Insulin Lispro 100 UNT/ML Pen Injector [Humalog] 08/15/2020 12:00:00 AM EDT eCW1 ([facility]) Famotidine 40 MG Oral Tablet [Pepcid] 04/05/2020 12:00:00 AM EDT eCW1 ([facility]) Famotidine 40 MG Oral Tablet [Pepcid] 04/05/2020 12:00:00 AM EDT eCW1 ([facility]) Furosemide 20 MG Oral Tablet [Lasix] 04/05/2020 12:00:00 AM EDT eCW1 ([facility]) Hydroxyzine Hydrochloride 25 MG Oral Tablet 04/05/2020 12:00:00 AM EDT eCW1 ([facility]) Famotidine 40 MG Oral Tablet [Pepcid] 04/05/2020 12:00:00 AM EDT eCW1 ([facility]) Bacitracin 0.5 UNT/MG Topical Ointment 04/05/2020 12:00:00 AM EDT eCW1 ([facility]) Hydroxyzine Hydrochloride 25 MG Oral Tablet 04/05/2020 12:00:00 AM EDT eCW1 ([facility]) Furosemide 20 MG Oral Tablet [Lasix] 04/05/2020 12:00:00 AM EDT eCW1 ([facility]) Famotidine 40 MG Oral Tablet [Pepcid] 04/05/2020 12:00:00 AM EDT eCW1 ([facility]) Hydroxyzine Hydrochloride 25 MG Oral Tablet 04/05/2020 12:00:00 AM EDT eCW1 ([facility]) Bacitracin 0.5 UNT/MG Topical Ointment 04/05/2020 12:00:00 AM EDT eCW1 ([facility]) Famotidine 40 MG Oral Tablet [Pepcid] 04/05/2020 12:00:00 AM EDT eCW1 ([facility]) Furosemide 20 MG Oral Tablet [Lasix] 04/05/2020 12:00:00 AM EDT eCW1 ([facility]) Furosemide 20 MG Oral Tablet [Lasix] 04/05/2020 12:00:00 AM EDT eCW1 ([facility]) Hydroxyzine Hydrochloride 25 MG Oral Tablet 04/05/2020 12:00:00 AM EDT eCW1 ([facility]) Furosemide 20 MG Oral Tablet [Lasix] 04/05/2020 12:00:00 AM EDT eCW1 ([facility]) Hydroxyzine Hydrochloride 25 MG Oral Tablet 04/05/2020 12:00:00 AM EDT eCW1 ([facility]) Glucose Monitor - 03/14/2020 12:00:00 AM EDT eCW1 ([facility])
[2020-12-12] MEDS ORDERED: KETOROLAC 60MG 2ML VIAL As Ordered ONE (07:19)
[2020-12-12] MEDS ORDERED: dexameTHASONE 4 MG/ML 1ML VIAL (J1100 PER 1MG) As Ordered ONE (07:19)
[2020-12-12] MEDS ORDERED: propofoL 200 MG/20 ML VIAL As Ordered ONE (07:19)
[2020-12-12] MEDS ORDERED: ONDANSETRON 4MG/2ML VIAL As Ordered ONE (07:19)
[2020-12-12] MEDS ORDERED: LIDOCAINE 2% 100MG/5ML SDV (FOR ANES.) As Ordered ONE (07:19)
[2020-12-12] MEDS ORDERED: MIDAZOLAM INJ 2MG/2ML VIAL (J2250 PER 1MG) As Ordered ONE (07:20)
[2020-12-12] MEDS ORDERED: fentaNYL 100 MCG/2 ML INJECTION (J3010) As Ordered ONE (07:20)
[2020-12-12] MEDS ORDERED: ceFAZolin 1GM VIAL (J0690 PER 500MG) As Ordered ONE (07:49)
[2020-12-12] MEDS ORDERED: ePHEDrine SULFATE 25 MG/5 ML(5MG/ML) SYRINGE As Ordered ONE (07:59)
[2020-12-12] MEDS ORDERED: BUPIVACAINE HCL 0.25% 30ML VIAL As Ordered ONE (08:04)
[2020-12-12] MEDS ORDERED: MORPHINE 2 MG/ML 1ML VIAL (J2270) IV PRN (09:00)
[2020-12-12] MEDS ORDERED: fentaNYL 100 MCG/2 ML INJECTION (J3010) IV PRN (09:00)
[2020-12-12] MEDS ORDERED: HYDROMORPHONE HCL 0.5 MG/ 0.5 ML SYRINGE (J1170 PER 1) IV PRN (09:00)
[2020-12-12] MEDS ORDERED: oxyCODONE 5MG TAB PO PRN (09:00)
[2020-12-12] MEDS ORDERED: LR 1,000 ML IV SCH ×2 (09:00)
[2020-12-12] MEDS ORDERED: ONDANSETRON 4MG/2ML VIAL IV PRN (09:00)
[2020-12-12] MEDS ORDERED: ACETAMINOPH W/CODEINE #3 TAB UD PO PRN (09:00)
--- NOTE | 2020-12-12 09:26 | RO ---
OPERATIVE NOTE DATE OF OPERATION: 12/12/2020 PREOPERATIVE DIAGNOSIS: Right carpal tunnel and right ulnar nerve entrapment at the elbow. POSTOPERATIVE DIAGNOSIS: Right carpal tunnel and right ulnar nerve entrapment at the elbow. PROCEDURES: 1. Right carpal tunnel release. 2. Right ulnar nerve decompression at the elbow. SURGEON: Thompson Grigsby MD. GRAPHIC MANAGER: ANESTHESIA: General. EBL: Minimal. COMPLICATIONS: None. INDICATIONS: A 75-year-old woman who has had some numbness in her entire right hand. EMG nerve conduction study was positive for carpal tunnel which she had clinical evidence of ulnar nerve entrapment at the elbow with numbness in her fourth and fifth fingers in addition. She wished to undergo surgical treatment. She understood the nature of this and the risks of bleeding, infection, damage to nerves or vessels, persistent pain, subluxation, and recurrence among others. She had failed conservative management. I explained to her that I normally put people in a posterior splint to protect the elbow wound, but in her case she is dependent on walking with a walker so we decided to keep her out of the splint. DESCRIPTION OF PROCEDURE: Patient was taken to the operating room and placed in the supine position. After general anesthesia was induced, the right upper extremity was prepped and draped in the usual sterile fashion. Time out was performed. Tourniquet was inflated, and a curvilinear incision was made over the medial aspect of the elbow, and blunt dissection was carried out down through the subcutaneous tissue until I was able to palpate the nerve. I then incised above the nerve through the fascia and retinaculum and identified the ulnar nerve. I then carefully dissected proximally and distally under direct visualization controlling hemostasis with a bipolar and protecting any branches from the nerve. Once I had completed the dissection proximally and distally, I palpated with a small finger to make sure the release was appropriate. The nerve was reperfusing fairly well. I irrigated and closed the subcu with 2-0 Vicryl and the skin with srikanth. Attention was directed to the carpal tunnel. A longitudinal incision was made in the proximal ulnar palm. Blunt dissection was carried down through the subcutaneous tissue until the transverse carpal ligament was encountered. This was incised longitudinally with a 15 blade entering the ulnar border of the carpal tunnel. I then completed the dissection proximally and distally under direct visualization protecting the median nerve with a Arab. Once I had completed the dissection, I then palpated with a small finger and made sure the release was complete. The median nerve was reperfusing reasonably well. I then irrigated and closed the skin with 5-0 nylon suture. Extra stitches were used just because she was going to have to put a little bit of pressure on her hand. Sterile dressing was applied. Tourniquet had been deflated. She was taken to the recovery room in stable condition. There were no known complications. The plan will be routine postop. Will have her use a sling when she is not using her walker. I think she will just have to gently use her right hand on the walker. I do not think there is a role for a forearm attachment because this is probably going to affect the ulnar nerve incision.
[2020-12-12 11:11] VITALS: BP 119/57
== END 2020-12-12 11:59 | disposition home or self-care (01) ==
LOC: M SDC 06:19
PROVIDERS: ATTEND Orthopaedic Surgery
DX: G56.21 Lesion of ulnar nerve, right upper limb (principal); G56.01 Carpal tunnel syndrome, right upper limb; F32.9 Major depressive disorder, single episode, unspecified; E03.9 Hypothyroidism, unspecified; E11.40 Type 2 diabetes mellitus with diabetic neuropathy, unspecified; E78.00 Pure hypercholesterolemia, unspecified; I10 Essential (primary) hypertension; I25.2 Old myocardial infarction; J44.9 Chronic obstructive pulmonary disease, unspecified; K21.9 Gastro-esophageal reflux disease without esophagitis; M12.9 Arthropathy, unspecified; R01.1 Cardiac murmur, unspecified; R32 Unspecified urinary incontinence; Z79.4 Long term (current) use of insulin; Z79.82 Long term (current) use of aspirin; Z79.890 Hormone replacement therapy; Z79.899 Other long term (current) drug therapy; Z88.2 Allergy status to sulfonamides; Z90.710 Acquired absence of both cervix and uterus; Z95.1 Presence of aortocoronary bypass graft; Z96.1 Presence of intraocular lens; Z98.41 Cataract extraction status, right eye; Z98.42 Cataract extraction status, left eye
CPT/HCPCS: 64718; 64721; J0690; J1100; J1885; J2250; J2405; J3010

== ENCOUNTER → 2021-01-31 | Outpatient (CLI) | payer MEDICARE, MEDICAID ==
[2021-01-31 10:45] LABS: HEMOGLOBIN A1c 7.5 %
[2021-01-31 11:12] LABS: ALBUMIN 3.6 GM/DL (3.2-5.2); BILIRUBIN,TOTAL 0.3 MG/DL (0.2-1.0); CALCIUM LEVEL 9.6 MG/DL (8.8-10.2); CREATININE FOR GFR 1.1 MG/DL (0.55-1.30); FREE T4 0.86 NG/DL (0.76-1.46); GLOMERULAR FILTRATION RATE 51.4 (>39); POTASSIUM SERUM 4.5 MEQ/L (3.5-5.1); THYROID STIMULATING HORMONE 3.27 uIU/ML (0.358-3.740)
== END ==
LOC: M LAB 09:39
PROVIDERS: ATTEND Nurse Practitioner Family
DX: E11.49 Type 2 diabetes mellitus with other diabetic neurological complication (principal); E03.9 Hypothyroidism, unspecified; E55.9 Vitamin D deficiency, unspecified

== ENCOUNTER → 2021-04-15 | Outpatient (CLI) | payer MEDICARE, MEDICAID ==
--- NOTE | 2021-04-17 09:47 | REPVR ---
PROCEDURE INFORMATION: Exam: MR Head Without Contrast; Internal Auditory Canals Exam date and time: 04/15/2021 1:45 PM Age: 76 years old Clinical indication: Other: Hearing loss, anosmia TECHNIQUE: Imaging protocol: MR of the head without contrast. Exam focused on the internal auditory canals. COMPARISON: No relevant prior studies available. FINDINGS: Brain: There is mild patchy increased T2 signal intensity within the bilateral cerebral periventricular white matter, consistent with chronic microvascular ischemic changes. There are few small focal areas of chronic ischemia in bilateral frontal, parietal and periatrial white matter. There is no abnormal diffusion weighted signal intensity to suggest an acute ischemic event. There is mild diffuse cerebral atrophy present, consistent with this patient's age. Ventricles: The ventricular system demonstrates mild diffuse compensatory enlargement. Mastoid air cells: The visualized mastoid air cells are clear. Internal auditory canals: The 7th and 8th cranial nerves are normal in thickness and signal intensity bilaterally. No discrete mass is seen to suggest vestibular schwannoma or acoustic neuroma. Bones/joints: Unremarkable. IMPRESSION: 1. No acute infarction, masses or hemorrhage is seen. No acute intracranial abnormality is identified. 2. Diffuse age-related cerebral atrophy and mild chronic microvascular white matter ischemic changes, without evidence of an acute intracranial abnormality. 3. The 7th and 8th cranial nerves are normal in thickness and signal intensity bilaterally. No discrete mass is seen to suggest vestibular schwannoma or acoustic neuroma. 4. The visualized mastoid air cells are clear. Electronically signed by: Goran Bates On 04/17/2021 09:46:32 AM
== END ==
LOC: M RAD 12:39
PROVIDERS: ATTEND Otolaryngology
DX: H90.3 Sensorineural hearing loss, bilateral (principal); R43.0 Anosmia

== ENCOUNTER → 2021-05-08 | Outpatient (CLI) | payer MEDICARE, MEDICAID ==
[~2021-05-08] MED LIST changes: -CLIN150C15 PO; +CLIN150C17 PO; +D31000TA2 PO; +HYDR-3363 PO; +OMEP-173 PO; -OMEP-218 PO; +RA N1TAB PO
[2021-05-08 11:22] LABS: HEMOGLOBIN A1c 9.7 %
[2021-05-08 11:30] LABS: ALBUMIN 3.3 GM/DL (3.2-5.2); ALT/SGPT 28 U/L (12-78); BILIRUBIN,TOTAL 0.6 MG/DL (0.2-1.0); BLOOD UREA NITROGEN 17 MG/DL (7-18); CALCIUM LEVEL 9.4 MG/DL (8.8-10.2); CARBON DIOXIDE LEVEL 28 MEQ/L (21-32); CHLORIDE LEVEL 104 MEQ/L (98-107); CREATININE FOR GFR 0.95 MG/DL (0.55-1.30); FREE T4 0.89 NG/DL (0.76-1.46); GLOMERULAR FILTRATION RATE > 60.0 (>39); GLUCOSE, FASTING 141 MG/DL (70-100); POTASSIUM SERUM 4.6 MEQ/L (3.5-5.1); SODIUM LEVEL 139 MEQ/L (136-145); TOTAL PROTEIN 6.8 GM/DL (6.4-8.2)
[2021-05-08 11:31] LABS: TOTAL 25(OH) VITAMIN D 31.5 NG/ML (30.0-100.0)
== END ==
LOC: M LAB 09:25
PROVIDERS: ATTEND Nurse Practitioner Family
DX: E11.49 Type 2 diabetes mellitus with other diabetic neurological complication (principal); E55.9 Vitamin D deficiency, unspecified; E03.9 Hypothyroidism, unspecified; Z79.899 Other long term (current) drug therapy

== ENCOUNTER → 2021-07-26 | Outpatient (CLI) | payer MEDICARE, MEDICAID ==
[~2021-07-26] MED LIST changes: -D31000TA2 PO; -HYDR-3363 PO; -OMEP-173 PO; +OMEP-218 PO; -RA N1TAB PO
[2021-07-26 14:06] LABS: HEMOGLOBIN A1c 12.4 %
[2021-07-26 14:14] LABS: CALCIUM LEVEL 9.6 MG/DL (8.8-10.2); CREATININE FOR GFR 1.23 MG/DL (0.55-1.30); GLOMERULAR FILTRATION RATE 45.2 (>39)
== END ==
LOC: M PLALAB 11:14
PROVIDERS: ATTEND Nurse Practitioner Family
DX: E11.49 Type 2 diabetes mellitus with other diabetic neurological complication (principal)
CPT/HCPCS: 36415; 80048; 83036; G0463

== ENCOUNTER → 2021-08-23 | Outpatient (CLI) | payer MEDICARE, MEDICAID ==
--- NOTE | 2021-08-24 08:40 | REP ---
INDICATION: SCREENING MAMMOGRAM. COMPARISON: Multiple prior screening examinations, the most recent, 05/07/2018 TECHNIQUE: Digital screening (2D) mammography was performed bilaterally in the CC and MLO projections. Additionally, breast tomosynthesis (3D mammography) was performed bilaterally in the CC and MLO projections. FINDINGS: By history, the patient has no complaints of a palpable breast abnormality or other significant breast complaints. The Volpara volumetric breast density pattern is b, there are scattered areas of fibroglandular density. In the anterior 3rd of the left breast, directly deep to and above the nipple, at the 12 o'clock position, there is an isodense focal asymmetry containing a group of indeterminate calcifications.. The right breast has a stable appearance. IMPRESSION: BIRADS/ACR : Category 0: Need additional imaging evaluation. This patient's Tyrer-Cuzick lifetime breast cancer risk assessment score is 2.1%. This mammogram was interpreted with the aid of an FDA-approved computer-aided detection system. The patient states she has not had a clinical breast exam in more than 1 year. The patient letter being requested is M0. RECOMMENDATION: Focal compression, with magnification, of the left breast in the CC and MLO orientations, and ultrasound. <Electronically signed by Jabier Cabrales > 08/24/21 [id number]
== END ==
LOC: M WHC 15:11
PROVIDERS: ATTEND Nurse Practitioner Family
DX: Z12.31 Encounter for screening mammogram for malignant neoplasm of breast (principal); R92.1 Mammographic calcification found on diagnostic imaging of breast

== ENCOUNTER → 2021-09-25 | Outpatient (CLI) | payer MEDICARE, MEDICAID ==
[~2021-09-25] MED LIST changes: +D31000TA2 PO; +HYDR-3363 PO; +OMEP-173 PO; -OMEP-218 PO; +RA N1TAB PO
== END ==
LOC: M WHC 10:05
PROVIDERS: ATTEND Nurse Practitioner Family
DX: N63.21 Unspecified lump in the left breast, upper outer quadrant (principal)
CPT/HCPCS: 76642; 77065; G0279

== ENCOUNTER → 2021-11-15 | Outpatient (CLI) | payer MEDICARE, MEDICAID ==
[~2021-11-15] MED LIST changes: +**SFHN** LIDOCAINE 1% MDV 20ML VIAL ONE; +**SFHN** SODIUM BICARBONATE 8.4% 10MEQ 10ML VIAL ONE; -D31000TA2 PO; -RA N1TAB PO
[2021-11-15 14:19] VITALS: BP 142/70
== END ==
LOC: M WHCPRO 12:43
PROVIDERS: ATTEND Nurse Practitioner Family
DX: D05.12 Intraductal carcinoma in situ of left breast (principal); N60.32 Fibrosclerosis of left breast
CPT/HCPCS: 19083; 19084; 77065; 88305; 88342; G0279

== ENCOUNTER → 2021-11-26 | Outpatient (CLI) | payer MEDICARE, OTHER ==
[~2021-11-26] MED LIST changes: -**SFHN** LIDOCAINE 1% MDV 20ML VIAL ONE; -**SFHN** SODIUM BICARBONATE 8.4% 10MEQ 10ML VIAL ONE; +D31000TA2 PO; +RA N1TAB PO
== END ==
LOC: M PLAIMG 14:35
PROVIDERS: ATTEND Nurse Practitioner Family
DX: M75.31 Calcific tendinitis of right shoulder (principal); M25.511 Pain in right shoulder

== ENCOUNTER → 2021-12-03 | Outpatient (CLI) | payer OTHER, MEDICAID ==
[~2021-12-03] MED LIST changes: -D31000TA2 PO; +VITA100093 PO
[2021-12-03 15:44] LABS: CALCIUM LEVEL 9.5 MG/DL (8.8-10.2); CREATININE FOR GFR 1.07 MG/DL (0.55-1.30); GLOMERULAR FILTRATION RATE 53.1 (>39); POTASSIUM SERUM 4.9 MEQ/L (3.5-5.1)
== END ==
LOC: M PLALAB 12:29
PROVIDERS: ATTEND Surgery
DX: C50.912 Malignant neoplasm of unspecified site of left female breast (principal); I25.2 Old myocardial infarction

== ENCOUNTER → 2021-12-07 | Outpatient (CLI) | payer OTHER, MEDICAID ==
[~2021-12-07] MED LIST changes: +BISO5TAB14 PO; +ELIQ5TAB PO; +PROHANCE 279.3MG/ML 5ML VIAL As Ordered ONE; +ROXI1TAB2 PO
== END ==
LOC: M RAD 16:38
PROVIDERS: ATTEND Surgery
DX: C50.912 Malignant neoplasm of unspecified site of left female breast (principal)
CPT/HCPCS: A9576; C8908

== ENCOUNTER → 2021-12-10 | Outpatient (CLI) | payer OTHER, MEDICAID ==
[~2021-12-10] MED LIST changes: -BISO5TAB14 PO; -ELIQ5TAB PO; -PROHANCE 279.3MG/ML 5ML VIAL As Ordered ONE; -RA N1TAB PO; -ROXI1TAB2 PO; -VITA100093 PO
== END ==
LOC: M PLALAB 13:01
PROVIDERS: ATTEND Surgery
DX: Z13.79 Encounter for other screening for genetic and chromosomal anomalies (principal)

== ENCOUNTER → 2021-12-20 | Outpatient (CLI) | payer MEDICAID, OTHER ==
[~2021-12-20] MED LIST changes: +RA N1TAB PO; +VITA100093 PO
== END ==
LOC: M EKG 14:50
PROVIDERS: ATTEND Family Medicine
DX: I48.91 Unspecified atrial fibrillation (principal)

== ENCOUNTER → 2021-12-20 | Outpatient (CLI) | payer OTHER, MEDICAID ==
[2021-12-20 13:16] LABS: BASO # 0.1 10^3/uL (0.0-0.2); BASO % 0.6 % (0.0-1.0); EOS # 0.3 10^3/uL (0.0-0.5); EOS % 3.2 % (0.0-3.0); HEMOGLOBIN 13.3 g/dl (12.0-15.5); LYMPH # 2.2 10^3/uL (1.5-5.0); LYMPH % 24.1 % (24.0-44.0); MEAN CORPUSCULAR HEMOGLOBIN 28.9 pg (27.0-33.0); MEAN CORPUSCULAR HGB CONC 32.4 g/dl (32.0-36.5); MEAN CORPUSCULAR VOLUME 89.1 fl (80.0-96.0); MONO # 0.7 10^3/uL (0.0-0.8); MONO % 7.3 % (2.0-8.0); NEUTROPHILS # 5.9 10^3/uL (1.5-8.5); NEUTROPHILS % 64.6 % (36.0-66.0); PLATELET COUNT, AUTOMATED 688 10^3/uL (150-450); WHITE BLOOD COUNT 9.1 10^3/uL (4.0-10.0)
[2021-12-20 13:35] LABS: HEMOGLOBIN A1c 11.3 %; INR 1.07; PARTIAL THROMBOPLASTIN TIME 32.6 SECONDS (25.9-37.0); PROTHROMBIN TIME 14.3 SECONDS (12.7-14.5)
[2021-12-20 13:53] LABS: ALBUMIN 3.6 GM/DL (3.2-5.2); BILIRUBIN,TOTAL 0.5 MG/DL (0.2-1.0); CALCIUM LEVEL 10.1 MG/DL (8.8-10.2); CHOLESTEROL RISK RATIO 2.586 (<5); CREATININE FOR GFR 1.23 MG/DL (0.55-1.30); FREE T4 0.96 NG/DL (0.76-1.46); GLOMERULAR FILTRATION RATE 45.2 (>39); MAGNESIUM LEVEL 2.1 MG/DL (1.8-2.4); POTASSIUM SERUM 5.1 MEQ/L (3.5-5.1); THYROID STIMULATING HORMONE 2.45 uIU/ML (0.358-3.740); TOTAL PROTEIN 7.3 GM/DL (6.4-8.2)
== END ==
LOC: M PLALAB 11:33
PROVIDERS: ATTEND Family Medicine
DX: E11.8 Type 2 diabetes mellitus with unspecified complications (principal); E03.9 Hypothyroidism, unspecified; I50.9 Heart failure, unspecified

== ENCOUNTER → 2021-12-27 | Outpatient (CLI) | payer OTHER, MEDICAID | LOC: M LABSMTC 09:48 | PROVIDERS: ATTEND Anesthesiology | DX: Z11.52 Encounter for screening for COVID-19 (principal) ==

== ENCOUNTER → 2021-12-28 | Outpatient (CLI) | payer OTHER, MEDICAID ==
[~2021-12-28] MED LIST changes: +ACET-897 PO; +ALBU8.5H INH; +BISO5TAB14 PO; +DOXY100T PO; +ELIQ5TAB PO; +ERGO500029 PO; +FLUT1BLS2 INH; +IPRA0.00 NEB; +LETR2.5T2 PO; +MAGN400T2 PO; +ROXI1TAB2 PO; +VALS1TAB67 PO
[2021-12-28 16:03] LABS: ALBUMIN 3.5 GM/DL (3.2-5.2); CALCIUM LEVEL 9.7 MG/DL (8.8-10.2); CREATININE FOR GFR 1.27 MG/DL (0.55-1.30); GLOMERULAR FILTRATION RATE 43.6 (>39); PHOSPHORUS LEVEL 3.9 MG/DL (2.5-4.9); POTASSIUM SERUM 4.6 MEQ/L (3.5-5.1)
== END ==
LOC: M PLALAB 12:38
PROVIDERS: ATTEND Physician Assistant
DX: E11.8 Type 2 diabetes mellitus with unspecified complications (principal); I25.10 Atherosclerotic heart disease of native coronary artery without angina pectoris; E87.6 Hypokalemia

== ENCOUNTER 2022-01-01 06:11 | Observation (INO) | payer MEDICAID, OTHER ==
[~2022-01-01] VITALS: Ht 154.9 cm; Wt 113.4 kg
[2022-01-01] VITALS (11 sets, daily range): BP systolic 81–112; BP diastolic 42–65
[~2022-01-01 06:11] MED LIST changes: -ACET-897 PO; -ALBU8.5H INH; -BISO5TAB14 PO; -DOXY100T PO; -ELIQ5TAB PO; -ERGO500029 PO; -FLUT1BLS2 INH; -IPRA0.00 NEB; -LETR2.5T2 PO; +LIDOCAINE 1% MDV 20ML VIAL SQ PRN; -MAGN400T2 PO; -ROXI1TAB2 PO; -VALS1TAB67 PO
[2022-01-01] MEDS ORDERED: ceFAZolin SOD 2 GM in IV 1 EA IV ONE (06:40)
[2022-01-01] MEDS ORDERED: HEPARIN SOD (PORCINE) 5000UNITS/ML 1ML VIAL/SYRINGE SQ ONE (06:40)
[2022-01-01] MEDS ORDERED: LR 1,000 ML IV ONE (06:45)
[2022-01-01] MEDS ORDERED: BISO5TAB14 PO (07:02)
[2022-01-01] MEDS ORDERED: ELIQ5TAB PO (07:02)
[2022-01-01] MEDS ORDERED: ONDANSETRON 4MG/2ML VIAL As Ordered ONE (07:04)
[2022-01-01] MEDS ORDERED: fentaNYL 250 MCG/5 ML INJECTION As Ordered ONE (07:04)
[2022-01-01] MEDS ORDERED: MIDAZOLAM INJ 2MG/2ML VIAL (J2250 PER 1MG) As Ordered ONE (07:04)
[2022-01-01] MEDS ORDERED: dexameTHASONE 4 MG/ML 1ML VIAL (J1100 PER 1MG) As Ordered ONE (07:04)
[2022-01-01] MEDS ORDERED: LIDOCAINE 2% 100MG/5ML SDV (FOR ANES.) As Ordered ONE (07:05)
[2022-01-01] MEDS ORDERED: ROCURONIUM BROMIDE 50 MG/5 ML VIAL As Ordered ONE (07:05)
[2022-01-01] MEDS ORDERED: propofoL 200 MG/20 ML VIAL As Ordered ONE (07:08)
[2022-01-01] MEDS ORDERED: LIDOCAINE 1% SDV 30ML VIAL As Ordered ONE (07:11)
[2022-01-01] MEDS ORDERED: BUPIVACAINE HCL 0.25% 30ML VIAL As Ordered ONE (07:11)
[2022-01-01] MEDS ORDERED: ACETAMINOPHEN 1000MG 100ML IV BTL (OFIRMEV) (J0131 PER 10MG) As Ordered ONE (07:22)
[2022-01-01] MEDS ORDERED: ePHEDrine SULFATE 25 MG/5 ML(5MG/ML) SYRINGE As Ordered ONE ×2 (08:03→08:32)
[2022-01-01] MEDS ORDERED: PHENYLephrine 500MCG 5ML (100MCG/ML) SYRINGE As Ordered ONE ×2 (08:03→08:32)
[2022-01-01] MEDS ORDERED: SUGAMMADEX SODIUM 500 MG/5 ML VIAL (BRIDION) As Ordered ONE (08:09)
[2022-01-01] MEDS ORDERED: METOCLOPRAMIDE INJ 10MG/2ML VIAL (J2765 PER 1) As Ordered ONE (09:01)
[2022-01-01] MEDS ORDERED: ONDANSETRON 4MG/2ML VIAL IV PRN ×2 (10:00→10:30)
[2022-01-01] MEDS ORDERED: PERCOCET 5MG/325MG TAB PO PRN (10:30)
[2022-01-01] MEDS ORDERED: fentaNYL 100 MCG/2 ML INJECTION IV PRN (10:30)
[2022-01-01] MEDS ORDERED: METOCLOPRAMIDE INJ 10MG/2ML VIAL (J2765 PER 1) IV PRN (10:30)
[2022-01-01] MEDS ORDERED: LR 1,000 ML IV SCH (10:30)
[2022-01-01] MEDS: LR 1,000 ML IV SCH (11:47)
[2022-01-01] MEDS: HumaLOG INSULIN (NovoLOG) PER UNIT SC SCH ×2 (12:00→17:24)
[2022-01-01] MEDS ORDERED: ALBUTEROL 90 MCG/ACT 8GM HFA INHALER INH PRN (13:10)
[2022-01-01] MEDS ORDERED: DEXTROSE 50% 50 ML SYRINGE IV PRN (13:10)
[2022-01-01] MEDS ORDERED: GLUCAGON INJ 1MG VIAL SC PRN (13:10)
[2022-01-01] MEDS ORDERED: GLUCOSE 4GM CHEW TABLET PO PRN (13:10)
[2022-01-01] MEDS: traMADol 50 MG TAB PO PRN (13:14)
[2022-01-01] MEDS: ASPIRIN 81MG ENTERIC TABLET PO SCH (14:44)
[2022-01-01] MEDS: ACETAMINOPHEN TAB 650MG DOSE (2X325MG) PO PRN (14:45)
[2022-01-01] MEDS ORDERED: NS 1,000 ML IV ONE (15:40)
[2022-01-01] MEDS ORDERED: HumaLOG INSULIN (NovoLOG) PER UNIT SC SCH ×2 (17:30→21:00)
[2022-01-01 17:57] LABS: HEMATOCRIT 34.3 % (36.0-47.0); HEMOGLOBIN 11.1 g/dl (12.0-15.5); MEAN CORPUSCULAR HEMOGLOBIN 29.7 pg (27.0-33.0); MEAN CORPUSCULAR HGB CONC 32.4 g/dl (32.0-36.5); MEAN CORPUSCULAR VOLUME 91.7 fl (80.0-96.0); PLATELET COUNT, AUTOMATED 658 10^3/uL (150-450); RED BLOOD COUNT 3.74 10^6/uL (4.00-5.40); WHITE BLOOD COUNT 11.7 10^3/uL (4.0-10.0)
[2022-01-01] MEDS: ceFAZolin SOD 2 GM in IV 1 EA IV SCH (18:17)
[2022-01-01 18:23] LABS: CALCIUM LEVEL 8.6 MG/DL (8.8-10.2); CREATININE FOR GFR 1.29 MG/DL (0.55-1.30); GLOMERULAR FILTRATION RATE 42.8 (>39); POTASSIUM SERUM 4.7 MEQ/L (3.5-5.1)
[2022-01-01] MEDS: ADVAIR HFA 115/21MCG INHALER INH SCH (20:00)
[2022-01-01] MEDS ORDERED: GABAPENTIN 300 MG CAP PO SCH (21:00)
[2022-01-01] MEDS: VITAMIN D 1,000 INTERNATIONAL UNITS TABLET PO SCH (21:22)
[2022-01-01] MEDS: HEPARIN SOD (PORCINE) 5000UNITS/ML 1ML VIAL/SYRINGE SQ SCH (21:22)
[2022-01-01] MEDS: CALCIUM/VITAMIN D 500 MG TAB PO SCH (21:22)
[2022-01-01] MEDS: hydrOXYzine 25 MG TAB PO SCH (21:22)
[2022-01-01] MEDS ORDERED: RAMELTEON 8 MG TAB (ROZEREM) PO PRN (22:40)
[2022-01-02] MEDS: ceFAZolin SOD 2 GM in IV 1 EA IV SCH (00:55)
[2022-01-02 02:00] VITALS: BP 96/46
[2022-01-02] MEDS: LR 1,000 ML IV SCH ×2 (04:57→08:06)
[2022-01-02] MEDS: HEPARIN SOD (PORCINE) 5000UNITS/ML 1ML VIAL/SYRINGE SQ SCH (05:05)
[2022-01-02] MEDS: traMADol 50 MG TAB PO PRN (05:06)
[2022-01-02 06:00] VITALS: BP 114/48
[2022-01-02] MEDS ORDERED: LEVOTHYROXINE 50MCG TABLET (0.05MG) PO SCH (06:00)
[2022-01-02] MEDS: ADVAIR HFA 115/21MCG INHALER INH SCH (07:44)
[2022-01-02] MEDS: HumaLOG INSULIN (NovoLOG) PER UNIT SC SCH ×2 (08:04→12:13)
[2022-01-02] MEDS: hydrOXYzine 25 MG TAB PO SCH (08:05)
[2022-01-02] MEDS: VITAMIN D 1,000 INTERNATIONAL UNITS TABLET PO SCH (08:05)
[2022-01-02] MEDS: CALCIUM/VITAMIN D 500 MG TAB PO SCH (08:05)
[2022-01-02] MEDS: ASPIRIN 81MG ENTERIC TABLET PO SCH (08:05)
[2022-01-02] MEDS: ACETAMINOPHEN TAB 650MG DOSE (2X325MG) PO PRN (08:40)
[2022-01-02] MEDS ORDERED: ATORVASTATIN 20 MG TAB PO SCH (09:00)
[2022-01-02] MEDS ORDERED: oxyBUTYnin *DITROPAN XL* 5 MG TABCR PO SCH (09:00)
[2022-01-02] MEDS ORDERED: CitaloPRAM (CeleXA) 20 MG TAB PO SCH (09:00)
[2022-01-02] MEDS ORDERED: FOLIC ACID 1 MG TAB PO SCH (09:00)
[2022-01-02] MEDS ORDERED: FAMOTIDINE 20 MG TAB PO SCH (09:00)
[2022-01-02] MEDS ORDERED: OMEPRAZOLE 20MG CAP PO SCH (09:00)
[2022-01-02] MEDS ORDERED: LEVEMIR (INSULIN DETEMIR) 1 UNITS/0.01ML SC SCH (09:00)
[2022-01-02 10:00] VITALS: BP 115/48
[2022-01-02] MEDS ORDERED: ROXI1TAB2 PO (10:58)
[2022-01-02] MEDS ORDERED: FLUBLOK(EGG FREE)(QUAD)INFLUENZA VACC 0.5ML SYRINGE 18YRS & OLDER IM ONE (13:00)
[2022-01-02] MEDS ORDERED: PREVNAR 13 VACCINE SYRINGE IM ONE (14:00)
== END 2022-01-02 14:15 | disposition home or self-care (01) ==
LOC: M SDC 06:11 → M MSPAV 06:12
PROVIDERS: ADMIT Surgery; ATTEND Surgery
DX: D05.12 Intraductal carcinoma in situ of left breast (principal); Z17.0 Estrogen receptor positive status [ER+]; I95.9 Hypotension, unspecified; I11.9 Hypertensive heart disease without heart failure; I48.0 Paroxysmal atrial fibrillation; E78.5 Hyperlipidemia, unspecified; E11.9 Type 2 diabetes mellitus without complications; K21.9 Gastro-esophageal reflux disease without esophagitis; J45.909 Unspecified asthma, uncomplicated; I25.10 Atherosclerotic heart disease of native coronary artery without angina pectoris; E66.01 Morbid (severe) obesity due to excess calories; Z68.42 Body mass index [BMI] 45.0-49.9, adult; I25.2 Old myocardial infarction; E03.9 Hypothyroidism, unspecified; M19.90 Unspecified osteoarthritis, unspecified site; J44.9 Chronic obstructive pulmonary disease, unspecified; R06.83 Snoring; F41.9 Anxiety disorder, unspecified; F32.9 Major depressive disorder, single episode, unspecified; Z87.891 Personal history of nicotine dependence; Z95.1 Presence of aortocoronary bypass graft; Z88.2 Allergy status to sulfonamides; Z88.1 Allergy status to other antibiotic agents; Z88.8 Allergy status to other drugs, medicaments and biological substances; Z79.899 Other long term (current) drug therapy; Z79.4 Long term (current) use of insulin; Z79.51 Long term (current) use of inhaled steroids; Z79.82 Long term (current) use of aspirin; Z79.01 Long term (current) use of anticoagulants; Z79.84 Long term (current) use of oral hypoglycemic drugs
CPT/HCPCS: 19301; 36415; 76942; 80048; 85027; 86850; 86900; 86901; 88307; 90670; 90682; 96372; 96374; 96376; 97116; 97161; 97530; G0008; G0009; G0378; J0131; J0690; J1644; J1815; J2250; J2370; J2405; J2765; J3010

== ENCOUNTER → 2022-01-08 | Outpatient (CLI) | payer OTHER, MEDICAID ==
[~2022-01-08] MED LIST changes: +ALBU8.5H INH; +BISO5TAB14 PO; +ELIQ5TAB PO; +ERGO500029 PO; +FLUT1BLS2 INH; -LIDOCAINE 1% MDV 20ML VIAL SQ PRN; +MAGN400T2 PO; +ROXI1TAB2 PO
[2022-01-08 17:01] LABS: BASO % 0.4 % (0.0-1.0); EOS # 0.3 10^3/uL (0.0-0.5); HEMATOCRIT 33.7 % (36.0-47.0); HEMOGLOBIN 11.1 g/dl (12.0-15.5); LYMPH # 2.1 10^3/uL (1.5-5.0); LYMPH % 19.6 % (24.0-44.0); MEAN CORPUSCULAR HEMOGLOBIN 29.3 pg (27.0-33.0); MEAN CORPUSCULAR HGB CONC 32.9 g/dl (32.0-36.5); MEAN CORPUSCULAR VOLUME 88.9 fl (80.0-96.0); MONO # 0.9 10^3/uL (0.0-0.8); MONO % 8.1 % (2.0-8.0); NEUTROPHILS # 7.3 10^3/uL (1.5-8.5); NEUTROPHILS % 68.6 % (36.0-66.0); PLATELET COUNT, AUTOMATED 669 10^3/uL (150-450); RED BLOOD COUNT 3.79 10^6/uL (4.00-5.40); WHITE BLOOD COUNT 10.6 10^3/uL (4.0-10.0)
[2022-01-08 17:18] LABS: ALBUMIN 3.3 GM/DL (3.2-5.2); BILIRUBIN,TOTAL 0.4 MG/DL (0.2-1.0); CREATININE FOR GFR 1.42 MG/DL (0.55-1.30); GLOMERULAR FILTRATION RATE 38.3 (>39); MAGNESIUM LEVEL 2.1 MG/DL (1.8-2.4); POTASSIUM SERUM 5.3 MEQ/L (3.5-5.1); TOTAL PROTEIN 6.7 GM/DL (6.4-8.2)
== END ==
LOC: M RAD 14:51
PROVIDERS: ATTEND Nurse Practitioner Family
DX: I51.7 Cardiomegaly (principal); M25.471 Effusion, right ankle; R06.02 Shortness of breath; R60.0 Localized edema; M25.571 Pain in right ankle and joints of right foot; Z95.1 Presence of aortocoronary bypass graft

== ENCOUNTER 2022-01-09 12:26 | Inpatient (IN) | payer MEDICAID, OTHER ==
[~2022-01-09] VITALS: Ht 154.9 cm; Wt 113.7 kg
[~2022-01-09 12:26] MED LIST changes: -ALBU8.5H INH; -ERGO500029 PO; -FLUT1BLS2 INH; -MAGN400T2 PO
[2022-01-09 13:55] LABS: BASO % 0.4 % (0.0-1.0); EOS # 0.3 10^3/uL (0.0-0.5); EOS % 2.6 % (0.0-3.0); HEMOGLOBIN 11.4 g/dl (12.0-15.5); LYMPH # 2.1 10^3/uL (1.5-5.0); LYMPH % 21.7 % (24.0-44.0); MEAN CORPUSCULAR HEMOGLOBIN 29.2 pg (27.0-33.0); MEAN CORPUSCULAR HGB CONC 32.6 g/dl (32.0-36.5); MEAN CORPUSCULAR VOLUME 89.5 fl (80.0-96.0); MONO # 0.8 10^3/uL (0.0-0.8); MONO % 7.8 % (2.0-8.0); NEUTROPHILS # 6.6 10^3/uL (1.5-8.5); NEUTROPHILS % 67.2 % (36.0-66.0); PLATELET COUNT, AUTOMATED 681 10^3/uL (150-450); RED BLOOD COUNT 3.91 10^6/uL (4.00-5.40); WHITE BLOOD COUNT 9.8 10^3/uL (4.0-10.0)
[2022-01-09 14:45] LABS: ALBUMIN 3.1 GM/DL (3.2-5.2); BILIRUBIN,DIRECT 0.2 MG/DL (0.0-0.2); BILIRUBIN,TOTAL 0.6 MG/DL (0.2-1.0); CALCIUM LEVEL 9.1 MG/DL (8.8-10.2); CREATININE FOR GFR 1.31 MG/DL (0.55-1.30); FREE T4 1.16 NG/DL (0.76-1.46); POTASSIUM SERUM 4.3 MEQ/L (3.5-5.1); THYROID STIMULATING HORMONE 3.61 uIU/ML (0.358-3.740); TOTAL PROTEIN 7.3 GM/DL (6.4-8.2)
[2022-01-09] MEDS ORDERED: FUROSEMIDE 40MG/4ML VIAL (J1940) IV ONE (14:45)
[2022-01-09] MEDS ORDERED: MAALOX 30 ML SUSP *UDC PO PRN (15:35)
[2022-01-09] MEDS ORDERED: GLUCOSE 4GM CHEW TABLET PO PRN (16:10)
[2022-01-09] MEDS ORDERED: GLUCAGON INJ 1MG VIAL SC PRN (16:10)
[2022-01-09] MEDS ORDERED: DEXTROSE 50% 50 ML SYRINGE IV PRN (16:10)
[2022-01-09] MEDS: HumaLOG INSULIN (NovoLOG) PER UNIT SC SCH ×2 (20:57→20:58)
[2022-01-09] MEDS ORDERED: MAGN400T2 PO (22:41)
[2022-01-09] MEDS ORDERED: VALS160T3 PO (22:41)
[2022-01-09] MEDS ORDERED: ALBU8.5H INH (22:41)
[2022-01-09] MEDS ORDERED: FURO40TA2 PO (22:41)
[2022-01-09] MEDS ORDERED: OMEP-173 PO (22:41)
[2022-01-09] MEDS ORDERED: ERGO500029 PO (22:41)
[2022-01-09] MEDS ORDERED: FELO5TAB26 PO (22:41)
[2022-01-09] MEDS ORDERED: BISO5TAB14 PO (22:41)
[2022-01-09] MEDS ORDERED: HYDR-3363 PO (22:41)
[2022-01-09] MEDS ORDERED: FLUT1BLS2 INH (22:41)
[2022-01-09] MEDS ORDERED: HOME MED LIST COMPLETE! XX SCH (22:45)
[2022-01-09] MEDS ORDERED: ALBUTEROL 90 MCG/ACT 8GM HFA INHALER INH PRN (23:40)
[2022-01-09] MEDS: DOCUSATE SODIUM 100MG CAPSULE PO SCH (23:45)
[2022-01-10 00:12] VITALS: BP 119/56
[2022-01-10] MEDS: GABAPENTIN 300 MG CAP PO SCH ×2 (01:23→20:46)
[2022-01-10] MEDS: ATORVASTATIN 20 MG TAB PO SCH ×2 (01:23→20:46)
[2022-01-10 04:15] VITALS: BP 120/56
[2022-01-10] MEDS: LEVOTHYROXINE 50MCG TABLET (0.05MG) PO SCH (06:01)
[2022-01-10] MEDS: ADVAIR HFA 115/21MCG INHALER INH SCH ×2 (07:48→19:45)
[2022-01-10 08:30] VITALS: BP 114/56
[2022-01-10] MEDS: HumaLOG INSULIN (NovoLOG) PER UNIT SC SCH ×4 (09:11→20:46)
[2022-01-10] MEDS: LEVEMIR (INSULIN DETEMIR) 1 UNITS/0.01ML SC SCH (09:11)
[2022-01-10] MEDS: VALSARTAN 80 MG TAB (DIOVAN) PO SCH (09:12)
[2022-01-10] MEDS: BISOPROLOL FUM 2.5 MG PER 1/2TAB PO SCH (09:13)
[2022-01-10] MEDS: OMEPRAZOLE 20MG CAP PO SCH (09:13)
[2022-01-10] MEDS: ASPIRIN 81MG ENTERIC TABLET PO SCH (09:14)
[2022-01-10] MEDS: CitaloPRAM (CeleXA) 20 MG TAB PO SCH (09:14)
[2022-01-10] MEDS: DOCUSATE SODIUM 100MG CAPSULE PO SCH ×2 (09:14→20:46)
[2022-01-10] MEDS: amLODIPine 5 MG TAB PO SCH (09:15)
[2022-01-10] MEDS: FAMOTIDINE 20 MG TAB PO SCH (09:15)
[2022-01-10] MEDS: ACETAMINOPHEN TAB 650MG DOSE (2X325MG) PO PRN ×2 (09:15→16:55)
[2022-01-10] MEDS: oxyBUTYnin *DITROPAN XL* 5 MG TABCR PO SCH (09:15)
[2022-01-10 09:16] LABS: BASO % 0.4 % (0.0-1.0); EOS # 0.4 10^3/uL (0.0-0.5); EOS % 3.5 % (0.0-3.0); HEMATOCRIT 34.4 % (36.0-47.0); HEMOGLOBIN 11.3 g/dl (12.0-15.5); LYMPH % 30.5 % (24.0-44.0); MEAN CORPUSCULAR HEMOGLOBIN 29.2 pg (27.0-33.0); MEAN CORPUSCULAR HGB CONC 32.8 g/dl (32.0-36.5); MEAN CORPUSCULAR VOLUME 88.9 fl (80.0-96.0); MONO # 0.8 10^3/uL (0.0-0.8); MONO % 7.5 % (2.0-8.0); NEUTROPHILS # 5.7 10^3/uL (1.5-8.5); NEUTROPHILS % 57.8 % (36.0-66.0); PLATELET COUNT, AUTOMATED 725 10^3/uL (150-450); RED BLOOD COUNT 3.87 10^6/uL (4.00-5.40); WHITE BLOOD COUNT 9.9 10^3/uL (4.0-10.0)
[2022-01-10 09:40] LABS: ERYTHROCYTE SEDIMENTATION RATE 49 mm/hr (0-30)
[2022-01-10 09:42] LABS: CALCIUM LEVEL 9.4 MG/DL (8.8-10.2); CREATININE FOR GFR 1.03 MG/DL (0.55-1.30); GLOMERULAR FILTRATION RATE 55.5 (>39); POTASSIUM SERUM 4.8 MEQ/L (3.5-5.1)
[2022-01-10 09:43] LABS: ALBUMIN 3.2 GM/DL (3.2-5.2); BILIRUBIN,TOTAL 0.6 MG/DL (0.2-1.0); C REACTIVE PROTEIN QUANTITATIV 1.45 MG/DL (0.00-0.30); TOTAL PROTEIN 6.6 GM/DL (6.4-8.2)
[2022-01-10] MEDS: APIXABAN 5 MG TAB (ELIQUIS) PO SCH ×2 (11:26→20:46)
[2022-01-10] MEDS: MAGNESIUM OXIDE 400MG TAB (MAG-OX) PO SCH ×2 (11:26→20:46)
[2022-01-10 16:15] VITALS: BP 130/61
[2022-01-10 20:00] VITALS: BP 122/57
[2022-01-11 04:00] VITALS: BP 130/60
[2022-01-11] MEDS: LEVOTHYROXINE 50MCG TABLET (0.05MG) PO SCH (05:58)
[2022-01-11 08:00] VITALS: BP 133/63
[2022-01-11] MEDS: OMEPRAZOLE 20MG CAP PO SCH (08:38)
[2022-01-11] MEDS: oxyBUTYnin *DITROPAN XL* 5 MG TABCR PO SCH (08:38)
[2022-01-11] MEDS: DOCUSATE SODIUM 100MG CAPSULE PO SCH ×2 (08:39→19:55)
[2022-01-11] MEDS: VALSARTAN 80 MG TAB (DIOVAN) PO SCH (08:39)
[2022-01-11] MEDS: BISOPROLOL FUM 2.5 MG PER 1/2TAB PO SCH (08:40)
[2022-01-11] MEDS: amLODIPine 5 MG TAB PO SCH (08:40)
[2022-01-11] MEDS: CitaloPRAM (CeleXA) 20 MG TAB PO SCH (08:40)
[2022-01-11] MEDS: MAGNESIUM OXIDE 400MG TAB (MAG-OX) PO SCH ×2 (08:40→19:56)
[2022-01-11] MEDS: ASPIRIN 81MG ENTERIC TABLET PO SCH (08:40)
[2022-01-11] MEDS: APIXABAN 5 MG TAB (ELIQUIS) PO SCH ×2 (08:40→19:56)
[2022-01-11] MEDS: FAMOTIDINE 20 MG TAB PO SCH (08:40)
[2022-01-11] MEDS: HumaLOG INSULIN (NovoLOG) PER UNIT SC SCH ×4 (08:41→19:56)
[2022-01-11] MEDS: LEVEMIR (INSULIN DETEMIR) 1 UNITS/0.01ML SC SCH (08:41)
[2022-01-11] MEDS: ADVAIR HFA 115/21MCG INHALER INH SCH ×2 (08:45→19:47)
[2022-01-11 08:50] LABS: BASO % 0.5 % (0.0-1.0); EOS # 0.4 10^3/uL (0.0-0.5); EOS % 4.6 % (0.0-3.0); HEMOGLOBIN 10.9 g/dl (12.0-15.5); LYMPH # 2.2 10^3/uL (1.5-5.0); LYMPH % 25.9 % (24.0-44.0); MEAN CORPUSCULAR HGB CONC 32.1 g/dl (32.0-36.5); MEAN CORPUSCULAR VOLUME 90.4 fl (80.0-96.0); MONO # 0.8 10^3/uL (0.0-0.8); MONO % 9.4 % (2.0-8.0); NEUTROPHILS % 59.4 % (36.0-66.0); PLATELET COUNT, AUTOMATED 637 10^3/uL (150-450); RED BLOOD COUNT 3.76 10^6/uL (4.00-5.40); WHITE BLOOD COUNT 8.5 10^3/uL (4.0-10.0)
[2022-01-11 09:10] LABS: BLOOD UREA NITROGEN 21 MG/DL (7-18); CREATININE FOR GFR 0.95 MG/DL (0.55-1.30); GLUCOSE, FASTING 185 MG/DL (70-100)
[2022-01-11 09:11] LABS: ALBUMIN 2.9 GM/DL (3.2-5.2); ALT/SGPT 18 U/L (12-78); BILIRUBIN,TOTAL 0.5 MG/DL (0.2-1.0); CALCIUM LEVEL 9.2 MG/DL (8.8-10.2); CARBON DIOXIDE LEVEL 30 MEQ/L (21-32); CHLORIDE LEVEL 103 MEQ/L (98-107); GLOMERULAR FILTRATION RATE > 60.0 (>39); MAGNESIUM LEVEL 2.1 MG/DL (1.8-2.4); POTASSIUM SERUM 4.6 MEQ/L (3.5-5.1); SODIUM LEVEL 139 MEQ/L (136-145); TOTAL PROTEIN 6.5 GM/DL (6.4-8.2)
[2022-01-11] MEDS: ACETAMINOPHEN TAB 650MG DOSE (2X325MG) PO PRN ×3 (10:07→22:18)
[2022-01-11] MEDS: FUROSEMIDE 40MG/4ML VIAL (J1940) IV SCH ×2 (11:30→15:00)
[2022-01-11 12:00] VITALS: BP 134/59
[2022-01-11 16:00] VITALS: BP 118/56
[2022-01-11] MEDS: GABAPENTIN 300 MG CAP PO SCH (19:54)
[2022-01-11] MEDS: ATORVASTATIN 20 MG TAB PO SCH (19:55)
[2022-01-11 20:10] VITALS: BP 131/58
[2022-01-11] MEDS: hydrOXYzine 25 MG TAB PO PRN (22:18)
[2022-01-12] MEDS: FUROSEMIDE 40MG/4ML VIAL (J1940) IV SCH ×3 (02:08→18:31)
[2022-01-12 04:20] VITALS: BP 123/60
[2022-01-12] MEDS: LEVOTHYROXINE 50MCG TABLET (0.05MG) PO SCH (05:14)
[2022-01-12 08:00] VITALS: BP 124/60
[2022-01-12] MEDS: ADVAIR HFA 115/21MCG INHALER INH SCH ×2 (08:11→19:20)
[2022-01-12 08:19] LABS: BASO # 0.1 10^3/uL (0.0-0.2); BASO % 0.6 % (0.0-1.0); EOS # 0.4 10^3/uL (0.0-0.5); HEMATOCRIT 32.7 % (36.0-47.0); HEMOGLOBIN 10.7 g/dl (12.0-15.5); LYMPH # 2.7 10^3/uL (1.5-5.0); LYMPH % 24.4 % (24.0-44.0); MEAN CORPUSCULAR HGB CONC 32.7 g/dl (32.0-36.5); MEAN CORPUSCULAR VOLUME 88.6 fl (80.0-96.0); MONO # 0.9 10^3/uL (0.0-0.8); MONO % 8.4 % (2.0-8.0); NEUTROPHILS # 6.8 10^3/uL (1.5-8.5); NEUTROPHILS % 62.2 % (36.0-66.0); PLATELET COUNT, AUTOMATED 627 10^3/uL (150-450); RED BLOOD COUNT 3.69 10^6/uL (4.00-5.40); WHITE BLOOD COUNT 10.9 10^3/uL (4.0-10.0)
[2022-01-12 08:53] LABS: ALBUMIN 2.8 GM/DL (3.2-5.2); BILIRUBIN,TOTAL 0.5 MG/DL (0.2-1.0); C REACTIVE PROTEIN QUANTITATIV 1.06 MG/DL (0.00-0.30); CALCIUM LEVEL 9.1 MG/DL (8.8-10.2); CREATININE FOR GFR 0.99 MG/DL (0.55-1.30); GLOMERULAR FILTRATION RATE 58.1 (>39); POTASSIUM SERUM 4.3 MEQ/L (3.5-5.1); TOTAL PROTEIN 6.9 GM/DL (6.4-8.2)
[2022-01-12] MEDS: LEVEMIR (INSULIN DETEMIR) 1 UNITS/0.01ML SC SCH ×2 (09:07→19:57)
[2022-01-12] MEDS: HumaLOG INSULIN (NovoLOG) PER UNIT SC SCH ×4 (09:08→20:17)
[2022-01-12] MEDS: VALSARTAN 80 MG TAB (DIOVAN) PO SCH (09:08)
[2022-01-12] MEDS: BISOPROLOL FUM 2.5 MG PER 1/2TAB PO SCH (09:09)
[2022-01-12] MEDS: APIXABAN 5 MG TAB (ELIQUIS) PO SCH ×2 (09:09→19:55)
[2022-01-12] MEDS: ASPIRIN 81MG ENTERIC TABLET PO SCH (09:09)
[2022-01-12] MEDS: FAMOTIDINE 20 MG TAB PO SCH (09:09)
[2022-01-12] MEDS: OMEPRAZOLE 20MG CAP PO SCH (09:09)
[2022-01-12] MEDS: DOCUSATE SODIUM 100MG CAPSULE PO SCH ×2 (09:09→19:56)
[2022-01-12] MEDS: CitaloPRAM (CeleXA) 20 MG TAB PO SCH (09:10)
[2022-01-12] MEDS: amLODIPine 5 MG TAB PO SCH (09:10)
[2022-01-12] MEDS: oxyBUTYnin *DITROPAN XL* 5 MG TABCR PO SCH (09:10)
[2022-01-12] MEDS: MAGNESIUM OXIDE 400MG TAB (MAG-OX) PO SCH ×2 (09:10→19:56)
[2022-01-12 10:05] LABS: HEMOGLOBIN A1c 10.6 %
[2022-01-12] MEDS: DOXYCYCLINE HYCLATE 100 MG in D5W MINI-BAG PLUS 100 ML IV SCH ×2 (11:09→22:50)
[2022-01-12] MEDS: ACETAMINOPHEN TAB 650MG DOSE (2X325MG) PO PRN ×2 (11:20→17:11)
[2022-01-12] MEDS: cefTRIAXone SOD 1 GM in D5W MINI-BAG PLUS 50 ML IV SCH (12:13)
[2022-01-12 16:00] VITALS: BP 142/65
[2022-01-12] MEDS: GABAPENTIN 300 MG CAP PO SCH (19:55)
[2022-01-12] MEDS: ATORVASTATIN 20 MG TAB PO SCH (19:56)
[2022-01-12] MEDS: hydrOXYzine 25 MG TAB PO PRN (19:56)
[2022-01-12 20:15] VITALS: BP 146/65
[2022-01-13 00:17] VITALS: BP 116/56
[2022-01-13] MEDS: FUROSEMIDE 40MG/4ML VIAL (J1940) IV SCH ×3 (02:34→18:20)
[2022-01-13 04:17] VITALS: BP 122/55
[2022-01-13] MEDS: LEVOTHYROXINE 50MCG TABLET (0.05MG) PO SCH (05:21)
[2022-01-13 06:50] LABS: BASO # 0.1 10^3/uL (0.0-0.2); BASO % 0.5 % (0.0-1.0); EOS # 0.5 10^3/uL (0.0-0.5); EOS % 4.2 % (0.0-3.0); HEMATOCRIT 32.2 % (36.0-47.0); HEMOGLOBIN 10.6 g/dl (12.0-15.5); LYMPH # 2.6 10^3/uL (1.5-5.0); LYMPH % 24.1 % (24.0-44.0); MEAN CORPUSCULAR HEMOGLOBIN 29.3 pg (27.0-33.0); MEAN CORPUSCULAR HGB CONC 32.9 g/dl (32.0-36.5); MONO # 0.9 10^3/uL (0.0-0.8); MONO % 8.3 % (2.0-8.0); NEUTROPHILS # 6.7 10^3/uL (1.5-8.5); NEUTROPHILS % 62.4 % (36.0-66.0); PLATELET COUNT, AUTOMATED 601 10^3/uL (150-450); RED BLOOD COUNT 3.62 10^6/uL (4.00-5.40); WHITE BLOOD COUNT 10.7 10^3/uL (4.0-10.0)
[2022-01-13 07:19] LABS: BLOOD UREA NITROGEN 24 MG/DL (7-18); CALCIUM LEVEL 8.9 MG/DL (8.8-10.2); CARBON DIOXIDE LEVEL 32 MEQ/L (21-32); CHLORIDE LEVEL 101 MEQ/L (98-107); CREATININE FOR GFR 0.96 MG/DL (0.55-1.30); GLOMERULAR FILTRATION RATE > 60.0 (>39); GLUCOSE, FASTING 173 MG/DL (70-100); MAGNESIUM LEVEL 1.9 MG/DL (1.8-2.4); SODIUM LEVEL 138 MEQ/L (136-145)
[2022-01-13] MEDS: ADVAIR HFA 115/21MCG INHALER INH SCH ×2 (07:19→19:27)
[2022-01-13] MEDS: HumaLOG INSULIN (NovoLOG) PER UNIT SC SCH ×4 (07:30→20:11)
[2022-01-13 08:00] VITALS: BP 111/51
[2022-01-13] MEDS: LEVEMIR (INSULIN DETEMIR) 1 UNITS/0.01ML SC SCH ×2 (08:51→20:11)
[2022-01-13] MEDS: ASPIRIN 81MG ENTERIC TABLET PO SCH (08:51)
[2022-01-13] MEDS: VALSARTAN 80 MG TAB (DIOVAN) PO SCH (08:52)
[2022-01-13] MEDS: BISOPROLOL FUM 2.5 MG PER 1/2TAB PO SCH (08:52)
[2022-01-13] MEDS: MAGNESIUM OXIDE 400MG TAB (MAG-OX) PO SCH ×2 (08:53→20:10)
[2022-01-13] MEDS: DOCUSATE SODIUM 100MG CAPSULE PO SCH ×2 (08:53→20:09)
[2022-01-13] MEDS: OMEPRAZOLE 20MG CAP PO SCH (08:53)
[2022-01-13] MEDS: amLODIPine 5 MG TAB PO SCH (08:54)
[2022-01-13] MEDS: oxyBUTYnin *DITROPAN XL* 5 MG TABCR PO SCH (08:54)
[2022-01-13] MEDS: CitaloPRAM (CeleXA) 20 MG TAB PO SCH (08:54)
[2022-01-13] MEDS: FAMOTIDINE 20 MG TAB PO SCH (08:55)
[2022-01-13] MEDS: APIXABAN 5 MG TAB (ELIQUIS) PO SCH ×2 (08:55→20:10)
[2022-01-13] MEDS: DOXYCYCLINE HYCLATE 100 MG in D5W MINI-BAG PLUS 100 ML IV SCH ×2 (11:23→22:23)
[2022-01-13] MEDS: cefTRIAXone SOD 1 GM in D5W MINI-BAG PLUS 50 ML IV SCH (12:00)
[2022-01-13] MEDS: ACETAMINOPHEN TAB 650MG DOSE (2X325MG) PO PRN ×2 (15:37→20:16)
[2022-01-13 16:00] VITALS: BP 128/60
[2022-01-13 20:00] VITALS: BP 127/58
[2022-01-13] MEDS: GABAPENTIN 300 MG CAP PO SCH (20:10)
[2022-01-13] MEDS: ATORVASTATIN 20 MG TAB PO SCH (20:10)
[2022-01-13] MEDS: hydrOXYzine 25 MG TAB PO PRN (20:16)
[2022-01-14] VITALS: BP 117/57
[2022-01-14] MEDS: FUROSEMIDE 40MG/4ML VIAL (J1940) IV SCH (02:49)
[2022-01-14 04:00] VITALS: BP 125/60
[2022-01-14] MEDS: LEVOTHYROXINE 50MCG TABLET (0.05MG) PO SCH (05:26)
[2022-01-14 06:43] LABS: BASO # 0.1 10^3/uL (0.0-0.2); BASO % 0.5 % (0.0-1.0); EOS # 0.5 10^3/uL (0.0-0.5); EOS % 5.8 % (0.0-3.0); HEMATOCRIT 33.7 % (36.0-47.0); HEMOGLOBIN 10.9 g/dl (12.0-15.5); LYMPH # 2.7 10^3/uL (1.5-5.0); LYMPH % 29.1 % (24.0-44.0); MEAN CORPUSCULAR HEMOGLOBIN 28.8 pg (27.0-33.0); MEAN CORPUSCULAR HGB CONC 32.3 g/dl (32.0-36.5); MEAN CORPUSCULAR VOLUME 89.2 fl (80.0-96.0); MONO # 0.8 10^3/uL (0.0-0.8); MONO % 8.5 % (2.0-8.0); NEUTROPHILS # 5.2 10^3/uL (1.5-8.5); NEUTROPHILS % 55.8 % (36.0-66.0); PLATELET COUNT, AUTOMATED 604 10^3/uL (150-450); RED BLOOD COUNT 3.78 10^6/uL (4.00-5.40); WHITE BLOOD COUNT 9.4 10^3/uL (4.0-10.0)
[2022-01-14 07:25] LABS: BLOOD UREA NITROGEN 24 MG/DL (7-18); CALCIUM LEVEL 8.9 MG/DL (8.8-10.2); CARBON DIOXIDE LEVEL 31 MEQ/L (21-32); CHLORIDE LEVEL 101 MEQ/L (98-107); CREATININE FOR GFR 0.91 MG/DL (0.55-1.30); GLOMERULAR FILTRATION RATE > 60.0 (>39); GLUCOSE, FASTING 125 MG/DL (70-100); MAGNESIUM LEVEL 1.9 MG/DL (1.8-2.4); POTASSIUM SERUM 4.1 MEQ/L (3.5-5.1); SODIUM LEVEL 137 MEQ/L (136-145)
[2022-01-14] MEDS: HumaLOG INSULIN (NovoLOG) PER UNIT SC SCH ×4 (07:30→20:02)
[2022-01-14 08:00] VITALS: BP 128/60
[2022-01-14] MEDS: ADVAIR HFA 115/21MCG INHALER INH SCH ×2 (08:00→19:28)
[2022-01-14] MEDS: BISOPROLOL FUM 2.5 MG PER 1/2TAB PO SCH (08:52)
[2022-01-14] MEDS: OMEPRAZOLE 20MG CAP PO SCH (08:52)
[2022-01-14] MEDS: DOCUSATE SODIUM 100MG CAPSULE PO SCH ×2 (08:52→20:02)
[2022-01-14] MEDS: ASPIRIN 81MG ENTERIC TABLET PO SCH (08:52)
[2022-01-14] MEDS: FAMOTIDINE 20 MG TAB PO SCH (08:53)
[2022-01-14] MEDS: amLODIPine 5 MG TAB PO SCH (08:53)
[2022-01-14] MEDS: CitaloPRAM (CeleXA) 20 MG TAB PO SCH (08:53)
[2022-01-14] MEDS: oxyBUTYnin *DITROPAN XL* 5 MG TABCR PO SCH (08:53)
[2022-01-14] MEDS: MAGNESIUM OXIDE 400MG TAB (MAG-OX) PO SCH ×2 (08:53→20:02)
[2022-01-14] MEDS: APIXABAN 5 MG TAB (ELIQUIS) PO SCH ×2 (08:55→20:02)
[2022-01-14] MEDS: LEVEMIR (INSULIN DETEMIR) 1 UNITS/0.01ML SC SCH ×2 (08:56→20:03)
[2022-01-14] MEDS: VALSARTAN 80 MG TAB (DIOVAN) PO SCH (08:56)
[2022-01-14] MEDS: DOXYCYCLINE HYCLATE 100 MG in D5W MINI-BAG PLUS 100 ML IV SCH ×2 (11:07→22:17)
[2022-01-14] MEDS: cefTRIAXone SOD 1 GM in D5W MINI-BAG PLUS 50 ML IV SCH (12:31)
[2022-01-14] MEDS: ACETAMINOPHEN TAB 650MG DOSE (2X325MG) PO PRN (12:37)
[2022-01-14 16:00] VITALS: BP 133/67
[2022-01-14 20:00] VITALS: BP 113/55
[2022-01-14] MEDS: GABAPENTIN 300 MG CAP PO SCH (20:01)
[2022-01-14] MEDS: ATORVASTATIN 20 MG TAB PO SCH (20:02)
[2022-01-15 04:00] VITALS: BP 132/69
[2022-01-15] MEDS: LEVOTHYROXINE 50MCG TABLET (0.05MG) PO SCH (05:06)
[2022-01-15 05:49] LABS: BASO # 0.1 10^3/uL (0.0-0.2); BASO % 0.6 % (0.0-1.0); EOS # 0.5 10^3/uL (0.0-0.5); EOS % 4.9 % (0.0-3.0); HEMATOCRIT 34.2 % (36.0-47.0); HEMOGLOBIN 11.1 g/dl (12.0-15.5); LYMPH # 3.2 10^3/uL (1.5-5.0); LYMPH % 31.1 % (24.0-44.0); MEAN CORPUSCULAR HEMOGLOBIN 28.8 pg (27.0-33.0); MEAN CORPUSCULAR HGB CONC 32.5 g/dl (32.0-36.5); MEAN CORPUSCULAR VOLUME 88.8 fl (80.0-96.0); MONO # 0.8 10^3/uL (0.0-0.8); NEUTROPHILS # 5.6 10^3/uL (1.5-8.5); PLATELET COUNT, AUTOMATED 623 10^3/uL (150-450); RED BLOOD COUNT 3.85 10^6/uL (4.00-5.40); WHITE BLOOD COUNT 10.2 10^3/uL (4.0-10.0)
[2022-01-15 06:07] LABS: BLOOD UREA NITROGEN 28 MG/DL (7-18); CALCIUM LEVEL 9.4 MG/DL (8.8-10.2); CARBON DIOXIDE LEVEL 32 MEQ/L (21-32); CHLORIDE LEVEL 103 MEQ/L (98-107); CREATININE FOR GFR 0.94 MG/DL (0.55-1.30); GLOMERULAR FILTRATION RATE > 60.0 (>39); GLUCOSE, FASTING 104 MG/DL (70-100); MAGNESIUM LEVEL 2.1 MG/DL (1.8-2.4); POTASSIUM SERUM 3.7 MEQ/L (3.5-5.1); SODIUM LEVEL 139 MEQ/L (136-145)
[2022-01-15] MEDS: HumaLOG INSULIN (NovoLOG) PER UNIT SC SCH ×4 (07:30→20:50)
[2022-01-15] MEDS: ADVAIR HFA 115/21MCG INHALER INH SCH ×2 (08:00→19:33)
[2022-01-15 08:18] VITALS: BP 140/60
[2022-01-15] MEDS ORDERED: FUROSEMIDE 40 MG TAB PO SCH (09:00)
[2022-01-15] MEDS: oxyBUTYnin *DITROPAN XL* 5 MG TABCR PO SCH (09:11)
[2022-01-15] MEDS: amLODIPine 5 MG TAB PO SCH (09:12)
[2022-01-15] MEDS: ASPIRIN 81MG ENTERIC TABLET PO SCH (09:12)
[2022-01-15] MEDS: DOCUSATE SODIUM 100MG CAPSULE PO SCH ×2 (09:13→20:51)
[2022-01-15] MEDS: BISOPROLOL FUM 2.5 MG PER 1/2TAB PO SCH (09:13)
[2022-01-15] MEDS: VALSARTAN 80 MG TAB (DIOVAN) PO SCH (09:13)
[2022-01-15] MEDS: MAGNESIUM OXIDE 400MG TAB (MAG-OX) PO SCH ×2 (09:14→20:51)
[2022-01-15] MEDS: OMEPRAZOLE 20MG CAP PO SCH (09:14)
[2022-01-15] MEDS: FUROSEMIDE 40 MG TAB PO SCH ×2 (09:14→17:40)
[2022-01-15] MEDS: APIXABAN 5 MG TAB (ELIQUIS) PO SCH ×2 (09:14→20:51)
[2022-01-15] MEDS: CitaloPRAM (CeleXA) 20 MG TAB PO SCH (09:14)
[2022-01-15] MEDS: LEVEMIR (INSULIN DETEMIR) 1 UNITS/0.01ML SC SCH ×2 (09:15→20:50)
[2022-01-15] MEDS: FAMOTIDINE 20 MG TAB PO SCH (09:15)
[2022-01-15] MEDS: DOXYCYCLINE HYCLATE 100MG TABLET PO SCH ×2 (14:15→20:51)
[2022-01-15 16:21] VITALS: BP 137/63
[2022-01-15] MEDS: ACETAMINOPHEN TAB 650MG DOSE (2X325MG) PO PRN ×2 (17:43→23:58)
[2022-01-15 20:00] VITALS: BP 154/65
[2022-01-15] MEDS: ATORVASTATIN 20 MG TAB PO SCH (20:51)
[2022-01-15] MEDS: GABAPENTIN 300 MG CAP PO SCH (20:51)
[2022-01-15] MEDS: hydrOXYzine 25 MG TAB PO PRN (20:52)
[2022-01-16] VITALS: BP 100/44
[2022-01-16 04:00] VITALS: BP 100/49
[2022-01-16] MEDS: LEVOTHYROXINE 50MCG TABLET (0.05MG) PO SCH (05:12)
[2022-01-16 06:17] LABS: BASO % 0.4 % (0.0-1.0); EOS # 0.4 10^3/uL (0.0-0.5); EOS % 4.7 % (0.0-3.0); HEMATOCRIT 31.5 % (36.0-47.0); HEMOGLOBIN 10.2 g/dl (12.0-15.5); LYMPH # 2.9 10^3/uL (1.5-5.0); LYMPH % 31.8 % (24.0-44.0); MEAN CORPUSCULAR HEMOGLOBIN 28.8 pg (27.0-33.0); MEAN CORPUSCULAR HGB CONC 32.4 g/dl (32.0-36.5); MONO # 0.8 10^3/uL (0.0-0.8); MONO % 9.2 % (2.0-8.0); NEUTROPHILS # 4.8 10^3/uL (1.5-8.5); NEUTROPHILS % 53.6 % (36.0-66.0); PLATELET COUNT, AUTOMATED 566 10^3/uL (150-450); RED BLOOD COUNT 3.54 10^6/uL (4.00-5.40)
[2022-01-16 06:32] LABS: BLOOD UREA NITROGEN 30 MG/DL (7-18); CALCIUM LEVEL 8.9 MG/DL (8.8-10.2); CARBON DIOXIDE LEVEL 30 MEQ/L (21-32); CHLORIDE LEVEL 105 MEQ/L (98-107); GLOMERULAR FILTRATION RATE > 60.0 (>39); GLUCOSE, FASTING 90 MG/DL (70-100); MAGNESIUM LEVEL 2.2 MG/DL (1.8-2.4); POTASSIUM SERUM 3.7 MEQ/L (3.5-5.1); SODIUM LEVEL 141 MEQ/L (136-145)
[2022-01-16] MEDS: ADVAIR HFA 115/21MCG INHALER INH SCH (07:16)
[2022-01-16] MEDS: HumaLOG INSULIN (NovoLOG) PER UNIT SC SCH ×2 (07:30→12:01)
[2022-01-16] MEDS ORDERED: FURO40TA2 PO (07:57)
[2022-01-16] MEDS ORDERED: VALS1TAB67 PO (07:58)
[2022-01-16] MEDS ORDERED: DOXY100T PO (07:58)
[2022-01-16 08:00] VITALS: BP 132/70
[2022-01-16] MEDS: oxyBUTYnin *DITROPAN XL* 5 MG TABCR PO SCH (08:33)
[2022-01-16] MEDS: OMEPRAZOLE 20MG CAP PO SCH (08:33)
[2022-01-16] MEDS: MAGNESIUM OXIDE 400MG TAB (MAG-OX) PO SCH (08:33)
[2022-01-16] MEDS: DOXYCYCLINE HYCLATE 100MG TABLET PO SCH (08:34)
[2022-01-16] MEDS: ASPIRIN 81MG ENTERIC TABLET PO SCH (08:34)
[2022-01-16] MEDS: CitaloPRAM (CeleXA) 20 MG TAB PO SCH (08:34)
[2022-01-16 08:36] VITALS: BP 132/70
[2022-01-16] MEDS: amLODIPine 5 MG TAB PO SCH (08:36)
[2022-01-16] MEDS: BISOPROLOL FUM 2.5 MG PER 1/2TAB PO SCH (08:36)
[2022-01-16] MEDS: FUROSEMIDE 40 MG TAB PO SCH (08:37)
[2022-01-16] MEDS: APIXABAN 5 MG TAB (ELIQUIS) PO SCH (08:38)
[2022-01-16] MEDS: FAMOTIDINE 20 MG TAB PO SCH (08:38)
[2022-01-16] MEDS: DOCUSATE SODIUM 100MG CAPSULE PO SCH (08:38)
[2022-01-16] MEDS: VALSARTAN 80 MG TAB (DIOVAN) PO SCH (08:40)
[2022-01-16] MEDS: LEVEMIR (INSULIN DETEMIR) 1 UNITS/0.01ML SC SCH (08:43)
== END 2022-01-16 13:40 | disposition home health service (06) | DRG 292 ==
LOC: M ED 12:26 → M ED INP 15:33 → ENRESERV 22:42 → M PCU 01-10 00:04
PROVIDERS: ADMIT Family Medicine; ATTEND Family Medicine
DX: I11.0 Hypertensive heart disease with heart failure (principal); Z68.43 Body mass index [BMI] 50.0-59.9, adult; L03.115 Cellulitis of right lower limb; I48.20 Chronic atrial fibrillation, unspecified; I50.9 Heart failure, unspecified; M25.571 Pain in right ankle and joints of right foot; Z95.1 Presence of aortocoronary bypass graft; Z79.01 Long term (current) use of anticoagulants; I25.10 Atherosclerotic heart disease of native coronary artery without angina pectoris; Z95.5 Presence of coronary angioplasty implant and graft; E78.5 Hyperlipidemia, unspecified; J44.9 Chronic obstructive pulmonary disease, unspecified; K21.9 Gastro-esophageal reflux disease without esophagitis; E03.9 Hypothyroidism, unspecified; J45.909 Unspecified asthma, uncomplicated; C50.912 Malignant neoplasm of unspecified site of left female breast; F41.9 Anxiety disorder, unspecified; F32.A Depression, unspecified; E66.01 Morbid (severe) obesity due to excess calories; Z98.41 Cataract extraction status, right eye; Z98.42 Cataract extraction status, left eye; Z90.49 Acquired absence of other specified parts of digestive tract; Z87.891 Personal history of nicotine dependence; E11.42 Type 2 diabetes mellitus with diabetic polyneuropathy; Z20.822 Contact with and (suspected) exposure to COVID-19; Z79.82 Long term (current) use of aspirin; Z79.84 Long term (current) use of oral hypoglycemic drugs; Z79.4 Long term (current) use of insulin; Z79.899 Other long term (current) drug therapy; Z88.2 Allergy status to sulfonamides; Z88.8 Allergy status to other drugs, medicaments and biological substances; Z79.51 Long term (current) use of inhaled steroids; E11.622 Type 2 diabetes mellitus with other skin ulcer; R22.31 Localized swelling, mass and lump, right upper limb

== ENCOUNTER → 2022-01-22 | Outpatient (CLI) | payer OTHER, MEDICAID ==
[~2022-01-22] MED LIST changes: +ACET-897 PO; +ALBU8.5H INH; +DOXY100T PO; +ERGO500029 PO; +FLUT1BLS2 INH; +IPRA0.00 NEB; +LETR2.5T2 PO; +MAGN400T2 PO; +VALS1TAB67 PO
== END ==
LOC: M ONCR 10:10
PROVIDERS: ATTEND General Practice
DX: C50.912 Malignant neoplasm of unspecified site of left female breast (principal); L76.82 Other postprocedural complications of skin and subcutaneous tissue; Z87.891 Personal history of nicotine dependence; Z80.0 Family history of malignant neoplasm of digestive organs; Z80.1 Family history of malignant neoplasm of trachea, bronchus and lung; Z88.2 Allergy status to sulfonamides; Z88.8 Allergy status to other drugs, medicaments and biological substances; Z79.899 Other long term (current) drug therapy

== ENCOUNTER → 2022-01-28 | Outpatient (CLI) | payer MEDICAID, OTHER | LOC: M WHC 11:00 | PROVIDERS: ATTEND Internal Medicine Medical Oncology | DX: C50.912 Malignant neoplasm of unspecified site of left female breast (principal); Z79.811 Long term (current) use of aromatase inhibitors; M85.88 Other specified disorders of bone density and structure, other site ==

== ENCOUNTER → 2022-02-13 | Outpatient (CLI) | payer OTHER, MEDICAID ==
[2022-02-13 17:15] LABS: HEMATOCRIT 38.3 % (36.0-47.0); HEMOGLOBIN 12.2 g/dl (12.0-15.5); MEAN CORPUSCULAR HGB CONC 31.9 g/dl (32.0-36.5); PLATELET COUNT, AUTOMATED 588 10^3/uL (150-450); RED BLOOD COUNT 4.21 10^6/uL (4.00-5.40); WHITE BLOOD COUNT 9.8 10^3/uL (4.0-10.0)
[2022-02-13 17:27] LABS: FREE T4 0.9 NG/DL (0.76-1.46); PERCENT SATURATION 11.1 % (13.2-45.0); THYROID STIMULATING HORMONE 2.11 uIU/ML (0.358-3.740)
== END ==
LOC: M PLALAB 14:51
PROVIDERS: ATTEND Internal Medicine Hematology
DX: M79.89 Other specified soft tissue disorders (principal); Z79.899 Other long term (current) drug therapy

== ENCOUNTER → 2022-02-13 | Outpatient (CLI) | payer MEDICAID, OTHER | LOC: M WHC 14:01 | PROVIDERS: ATTEND Internal Medicine Hematology | DX: M79.89 Other specified soft tissue disorders (principal) ==

== ENCOUNTER → 2022-03-18 | Outpatient (CLI) | payer OTHER, MEDICAID ==
[2022-03-18 11:09] LABS: BASO % 0.5 % (0.0-1.0); EOS # 0.2 10^3/uL (0.0-0.5); EOS % 2.7 % (0.0-3.0); HEMATOCRIT 36.6 % (36.0-47.0); HEMOGLOBIN 11.8 g/dl (12.0-15.5); LYMPH % 22.9 % (24.0-44.0); MEAN CORPUSCULAR HEMOGLOBIN 28.4 pg (27.0-33.0); MEAN CORPUSCULAR HGB CONC 32.2 g/dl (32.0-36.5); MONO # 0.7 10^3/uL (0.0-0.8); NEUTROPHILS # 5.7 10^3/uL (1.5-8.5); NEUTROPHILS % 65.7 % (36.0-66.0); PLATELET COUNT, AUTOMATED 592 10^3/uL (150-450); RED BLOOD COUNT 4.16 10^6/uL (4.00-5.40); WHITE BLOOD COUNT 8.6 10^3/uL (4.0-10.0)
[2022-03-18 11:54] LABS: ALBUMIN 3.7 GM/DL (3.2-5.2); BILIRUBIN,TOTAL 0.7 MG/DL (0.2-1.0); CALCIUM LEVEL 9.4 MG/DL (8.8-10.2); CHOLESTEROL RISK RATIO 1.661 (<5); CREATININE FOR GFR 1.18 MG/DL (0.55-1.30); FREE T4 0.88 NG/DL (0.76-1.46); GLOMERULAR FILTRATION RATE 47.3 (>39); POTASSIUM SERUM 4.7 MEQ/L (3.5-5.1); THYROID STIMULATING HORMONE 5.16 uIU/ML (0.358-3.740); TOTAL PROTEIN 7.5 GM/DL (6.4-8.2)
[2022-03-18 12:04] LABS: CREATININE, URINE 37.6 MG/DL; MALB URINE SIEMENS 6.2 MG/L; MAU/CREAT RATIO 16.4 MCG/MG (0.0-30.0)
[2022-03-18 13:11] LABS: TOTAL 25(OH) VITAMIN D 61.4 NG/ML (30.0-100.0)
== END ==
LOC: M LAB 09:44
PROVIDERS: ATTEND Nurse Practitioner Family
DX: E78.2 Mixed hyperlipidemia (principal); I11.0 Hypertensive heart disease with heart failure; E55.9 Vitamin D deficiency, unspecified; E03.9 Hypothyroidism, unspecified; E11.8 Type 2 diabetes mellitus with unspecified complications; I50.9 Heart failure, unspecified

== ENCOUNTER → 2022-04-25 | Outpatient (REF) | payer OTHER, MEDICAID | LOC: M WUC 15:32 | PROVIDERS: ATTEND Physician Assistant | DX: J02.9 Acute pharyngitis, unspecified (principal) ==

== ENCOUNTER → 2022-06-25 | Outpatient (CLI) | payer MEDICAID, OTHER ==
[2022-06-25 17:36] LABS: BASO # 0.1 10^3/uL (0.0-0.2); BASO % 0.6 % (0.0-1.0); EOS # 0.2 10^3/uL (0.0-0.5); HEMATOCRIT 34.6 % (36.0-47.0); HEMOGLOBIN 11.2 g/dl (12.0-15.5); LYMPH # 2.6 10^3/uL (1.5-5.0); LYMPH % 28.8 % (24.0-44.0); MEAN CORPUSCULAR HEMOGLOBIN 28.9 pg (27.0-33.0); MEAN CORPUSCULAR HGB CONC 32.4 g/dl (32.0-36.5); MEAN CORPUSCULAR VOLUME 89.4 fl (80.0-96.0); MONO # 0.7 10^3/uL (0.0-0.8); MONO % 8.3 % (2.0-8.0); NEUTROPHILS # 5.3 10^3/uL (1.5-8.5); PLATELET COUNT, AUTOMATED 530 10^3/uL (150-450); RED BLOOD COUNT 3.87 10^6/uL (4.00-5.40); WHITE BLOOD COUNT 8.9 10^3/uL (4.0-10.0)
[2022-06-25 18:49] LABS: CALCIUM LEVEL 9.2 MG/DL (8.8-10.2); CREATININE FOR GFR 1.08 MG/DL (0.55-1.30); GLOMERULAR FILTRATION RATE 52.4 (>39); POTASSIUM SERUM 4.6 MEQ/L (3.5-5.1)
== END ==
LOC: M PLALAB 14:45
PROVIDERS: ATTEND Nurse Practitioner Family
DX: M79.89 Other specified soft tissue disorders (principal)

== ENCOUNTER → 2022-08-26 | Outpatient (CLI) | payer MEDICAID, OTHER | LOC: M WHC 13:36 | PROVIDERS: ATTEND Specialist | DX: C50.412 Malignant neoplasm of upper-outer quadrant of left female breast (principal) | CPT/HCPCS: 76642; 77066; G0279 ==

== ENCOUNTER → 2022-09-17 | Outpatient (REF) | payer OTHER, MEDICAID ==
[~2022-09-17] MED LIST changes: +ALBU8.5H; +ANAS1TAB2 PO; +BISO5TAB14; +NITR100C2
[2022-09-17 16:57] LABS: BASO # 0.1 10^3/uL (0.0-0.2); BASO % 0.5 % (0.0-1.0); EOS # 0.3 10^3/uL (0.0-0.5); EOS % 2.7 % (0.0-3.0); HEMATOCRIT 35.8 % (36.0-47.0); HEMOGLOBIN 10.9 g/dl (12.0-15.5); LYMPH # 2.3 10^3/uL (1.5-5.0); LYMPH % 24.5 % (24.0-44.0); MEAN CORPUSCULAR HEMOGLOBIN 28.5 pg (27.0-33.0); MEAN CORPUSCULAR HGB CONC 30.4 g/dl (32.0-36.5); MEAN CORPUSCULAR VOLUME 93.7 fl (80.0-96.0); MONO # 0.9 10^3/uL (0.0-0.8); MONO % 9.1 % (2.0-8.0); NEUTROPHILS # 5.8 10^3/uL (1.5-8.5); NEUTROPHILS % 62.9 % (36.0-66.0); PLATELET COUNT, AUTOMATED 546 10^3/uL (150-450); RED BLOOD COUNT 3.82 10^6/uL (4.00-5.40); WHITE BLOOD COUNT 9.3 10^3/uL (4.0-10.0)
[2022-09-17 18:36] LABS: ALBUMIN 3.8 G/DL (3.2-5.2); ALKALINE PHOSPHATASE 60 U/L (46-116); ALT/SGPT 23 U/L (7.0-40); AST/SGOT 20 U/L (<34); BILIRUBIN,TOTAL 0.4 MG/DL (0.3-1.2); BLOOD UREA NITROGEN 19 MG/DL (9-23); CALCIUM LEVEL 8.9 MG/DL (8.3-10.6); CARBON DIOXIDE LEVEL 24 MMOL/L (20-31); CHLORIDE LEVEL 103 MMOL/L (98-107); CREATININE FOR GFR 0.91 MG/DL (0.55-1.30); GLOMERULAR FILTRATION RATE > 60.0 (>39); GLUCOSE, FASTING 105 MG/DL (74-106); POTASSIUM SERUM 4.8 MMOL/L (3.5-5.1); SODIUM LEVEL 138 MMOL/L (136-145); TOTAL PROTEIN 6.8 G/DL (5.7-8.2)
== END ==
LOC: M WUC 14:21
PROVIDERS: ATTEND Physician Assistant
DX: R22.41 Localized swelling, mass and lump, right lower limb (principal); R22.42 Localized swelling, mass and lump, left lower limb; R06.02 Shortness of breath

== ENCOUNTER → 2022-09-17 | Outpatient (REF) | payer OTHER, MEDICAID ==
[~2022-09-17] MED LIST changes: -ALBU8.5H; -ANAS1TAB2 PO; -BISO5TAB14; -NITR100C2
== END ==
LOC: M LAB REF 16:28
PROVIDERS: ATTEND Physician Assistant
DX: R35.0 Frequency of micturition (principal)

== ENCOUNTER 2022-09-28 15:37 | Emergency (ER) | payer OTHER, MEDICAID ==
[~2022-09-28] VITALS: Ht 154.9 cm; Wt 114.0 kg
[2022-09-28] MEDS ORDERED: ALBU8.5H (16:02)
[2022-09-28] MEDS ORDERED: BISO5TAB14 (16:02)
[2022-09-28] MEDS ORDERED: NITR100C2 (16:05)
[2022-09-28 16:53] LABS: BASO % 0.4 % (0.0-1.0); EOS # 0.1 10^3/uL (0.0-0.5); EOS % 1.5 % (0.0-3.0); HEMATOCRIT 33.4 % (36.0-47.0); HEMOGLOBIN 10.5 g/dl (12.0-15.5); LYMPH # 1.5 10^3/uL (1.5-5.0); LYMPH % 17.8 % (24.0-44.0); MEAN CORPUSCULAR HEMOGLOBIN 28.8 pg (27.0-33.0); MEAN CORPUSCULAR HGB CONC 31.4 g/dl (32.0-36.5); MEAN CORPUSCULAR VOLUME 91.5 fl (80.0-96.0); MONO # 0.6 10^3/uL (0.0-0.8); MONO % 7.5 % (2.0-8.0); NEUTROPHILS # 6.1 10^3/uL (1.5-8.5); NEUTROPHILS % 72.6 % (36.0-66.0); PLATELET COUNT, AUTOMATED 546 10^3/uL (150-450); RED BLOOD COUNT 3.65 10^6/uL (4.00-5.40); WHITE BLOOD COUNT 8.4 10^3/uL (4.0-10.0)
[2022-09-28 17:24] LABS: CK-MB VALUE MASS < 1.0 NG/ML (<3.6)
[2022-09-28 17:26] LABS: ALBUMIN 3.7 G/DL (3.2-5.2); ALKALINE PHOSPHATASE 73 U/L (46-116); ALT/SGPT 27 U/L (7.0-40); AST/SGOT 34 U/L (<34); BILIRUBIN,DIRECT 0.2 MG/DL (<0.4); BILIRUBIN,TOTAL 0.4 MG/DL (0.3-1.2); BLOOD UREA NITROGEN 14 MG/DL (9-23); CALCIUM LEVEL 9.1 MG/DL (8.3-10.6); CARBON DIOXIDE LEVEL 26 MMOL/L (20-31); CHLORIDE LEVEL 105 MMOL/L (98-107); CPK CREATINE PHOSPHOKINASE 39 U/L (34-145); CREATININE FOR GFR 0.87 MG/DL (0.55-1.30); GLOMERULAR FILTRATION RATE > 60.0 (>39); GLUCOSE, FASTING 139 MG/DL (74-106); MB/CK RELATIVE INDEX 2.56 (< OR =4); POTASSIUM SERUM 4.6 MMOL/L (3.5-5.1); SODIUM LEVEL 138 MMOL/L (136-145); TOTAL PROTEIN 6.7 G/DL (5.7-8.2)
[2022-09-28 17:28] LABS: THYROXINE (T4) 7.1 UG/DL (4.5-10.9)
[2022-09-28 17:29] LABS: THYROID STIMULATING HORMONE 2.277 uIU/ML (0.55-4.78)
[2022-09-28 17:30] LABS: RSV AMPLIFICATION NEGATIVE (NEGATIVE)
[2022-09-28 18:01] LABS: CK-MB VALUE MASS < 1.0 NG/ML (<3.6)
[2022-09-28 18:06] LABS: CPK CREATINE PHOSPHOKINASE 36 U/L (34-145); MB/CK RELATIVE INDEX 2.77 (< OR =4)
[2022-09-28 19:08] VITALS: BP 174/81
== END 2022-09-28 19:38 | disposition home or self-care (01) ==
LOC: M ED 15:37
DX: R60.0 Localized edema (principal); C50.912 Malignant neoplasm of unspecified site of left female breast; R94.31 Abnormal electrocardiogram [ECG] [EKG]; E11.9 Type 2 diabetes mellitus without complications; J44.9 Chronic obstructive pulmonary disease, unspecified; K21.9 Gastro-esophageal reflux disease without esophagitis; F32.A Depression, unspecified; F41.9 Anxiety disorder, unspecified; Z90.710 Acquired absence of both cervix and uterus; Z95.5 Presence of coronary angioplasty implant and graft; Z88.2 Allergy status to sulfonamides; Z88.8 Allergy status to other drugs, medicaments and biological substances; Z79.51 Long term (current) use of inhaled steroids; Z79.4 Long term (current) use of insulin; Z79.01 Long term (current) use of anticoagulants; Z79.899 Other long term (current) drug therapy

== ENCOUNTER → 2022-10-04 | Outpatient (CLI) | payer OTHER, MEDICAID ==
[~2022-10-04] MED LIST changes: +ALBU8.5H; +ANAS1TAB2 PO; +BISO5TAB14; +NITR100C2
[2022-10-04 16:11] LABS: HEMOGLOBIN A1c 7.5 % (4.0-6.0)
[2022-10-04 16:18] LABS: MAU/CREAT RATIO 296.4 MCG/MG (0.0-30.0)
[2022-10-04 16:23] LABS: MAGNESIUM LEVEL 2.1 MG/DL (1.8-2.4)
[2022-10-04 16:24] LABS: CHOLESTEROL RISK RATIO 2.14 (<5); HDL CHOLESTEROL 42.5 MG/DL (>40); LDL CHOLESTEROL 36.1 MG/DL (<100); TOTAL 25(OH) VITAMIN D 60.8 NG/ML (20.0-100.0)
[2022-10-04 16:25] LABS: THYROID STIMULATING HORMONE 2.585 uIU/ML (0.55-4.78)
[2022-10-04 16:54] LABS: FREE T4 1.03 NG/DL (0.89-1.76)
== END ==
LOC: M PLALAB 13:55
PROVIDERS: ATTEND Nurse Practitioner Family
DX: I50.9 Heart failure, unspecified (principal); E11.8 Type 2 diabetes mellitus with unspecified complications; E03.9 Hypothyroidism, unspecified; E55.9 Vitamin D deficiency, unspecified; E78.2 Mixed hyperlipidemia; Z79.899 Other long term (current) drug therapy

== ENCOUNTER → 2022-11-22 | Outpatient (CLI) | payer OTHER, MEDICAID ==
[2022-11-22 11:46] LABS: BASO % 0.3 % (0.0-1.0); EOS # 0.1 10^3/uL (0.0-0.5); EOS % 1.1 % (0.0-3.0); HEMATOCRIT 38.3 % (36.0-47.0); HEMOGLOBIN 12.1 g/dl (12.0-15.5); LYMPH # 1.6 10^3/uL (1.5-5.0); LYMPH % 17.1 % (24.0-44.0); MEAN CORPUSCULAR HEMOGLOBIN 29.1 pg (27.0-33.0); MEAN CORPUSCULAR HGB CONC 31.6 g/dl (32.0-36.5); MEAN CORPUSCULAR VOLUME 92.1 fl (80.0-96.0); MONO # 0.7 10^3/uL (0.0-0.8); MONO % 7.5 % (2.0-8.0); NEUTROPHILS % 73.7 % (36.0-66.0); PLATELET COUNT, AUTOMATED 461 10^3/uL (150-450); RED BLOOD COUNT 4.16 10^6/uL (4.00-5.40); WHITE BLOOD COUNT 9.5 10^3/uL (4.0-10.0)
[2022-11-22 11:58] LABS: INR 1.73; PARTIAL THROMBOPLASTIN TIME 34.8 SECONDS (24.8-34.2); PROTHROMBIN TIME 20.6 SECONDS (12.5-14.5)
[2022-11-22 12:00] LABS: MAGNESIUM LEVEL 1.9 MG/DL (1.8-2.4)
[2022-11-22 12:02] LABS: CALCIUM LEVEL 9.6 MG/DL (8.3-10.6); CREATININE FOR GFR 1.04 MG/DL (0.55-1.30); GLOMERULAR FILTRATION RATE 54.7 (>39); PHOSPHORUS LEVEL 3.1 MG/DL (2.4-5.1); POTASSIUM SERUM 4.6 MMOL/L (3.5-5.1)
[2022-11-22 12:05] LABS: FREE T4 1.01 NG/DL (0.89-1.76); THYROID STIMULATING HORMONE 4.181 uIU/ML (0.55-4.78)
== END ==
LOC: M LAB 10:49
PROVIDERS: ATTEND Physician Assistant
DX: R04.0 Epistaxis (principal); R58 Hemorrhage, not elsewhere classified; R60.0 Localized edema; E03.9 Hypothyroidism, unspecified; I50.9 Heart failure, unspecified; Z79.01 Long term (current) use of anticoagulants

== ENCOUNTER 2022-12-07 14:38 | Emergency (ER) | payer OTHER, MEDICAID ==
[~2022-12-07] VITALS: Ht 154.9 cm; Wt 104.5 kg
[2022-12-07 14:39] VITALS: BP 160/78
[2022-12-07 17:15] LABS: BASO # 0.1 10^3/uL (0.0-0.2); BASO % 0.6 % (0.0-1.0); EOS # 0.1 10^3/uL (0.0-0.5); EOS % 1.1 % (0.0-3.0); HEMATOCRIT 38.9 % (36.0-47.0); HEMOGLOBIN 12.4 g/dl (12.0-15.5); LYMPH # 2.2 10^3/uL (1.5-5.0); LYMPH % 22.6 % (24.0-44.0); MEAN CORPUSCULAR HEMOGLOBIN 29.8 pg (27.0-33.0); MEAN CORPUSCULAR HGB CONC 31.9 g/dl (32.0-36.5); MEAN CORPUSCULAR VOLUME 93.5 fl (80.0-96.0); MONO # 0.8 10^3/uL (0.0-0.8); MONO % 8.2 % (2.0-8.0); NEUTROPHILS # 6.4 10^3/uL (1.5-8.5); NEUTROPHILS % 67.3 % (36.0-66.0); PLATELET COUNT, AUTOMATED 423 10^3/uL (150-450); RED BLOOD COUNT 4.16 10^6/uL (4.00-5.40); WHITE BLOOD COUNT 9.6 10^3/uL (4.0-10.0)
[2022-12-07 17:40] LABS: INR 1.4; PROTHROMBIN TIME 17.4 SECONDS (12.5-14.5)
[2022-12-07 17:41] LABS: PARTIAL THROMBOPLASTIN TIME 36.5 SECONDS (24.8-34.2)
[2022-12-07 17:48] LABS: LIPASE 27 U/L (12-53)
[2022-12-07 17:50] LABS: ALKALINE PHOSPHATASE 90 U/L (46-116); ALT/SGPT 39 U/L (7.0-40); AST/SGOT 26 U/L (<34); BILIRUBIN,DIRECT 0.4 MG/DL (<0.4); BILIRUBIN,TOTAL 0.7 MG/DL (0.3-1.2); BLOOD UREA NITROGEN 18 MG/DL (9-23); CALCIUM LEVEL 9.5 MG/DL (8.3-10.6); CARBON DIOXIDE LEVEL 26 MMOL/L (20-31); CHLORIDE LEVEL 105 MMOL/L (98-107); CREATININE FOR GFR 0.74 MG/DL (0.55-1.30); GLOMERULAR FILTRATION RATE > 60.0 (>39); GLUCOSE, FASTING 155 MG/DL (74-106); POTASSIUM SERUM 4.9 MMOL/L (3.5-5.1); SODIUM LEVEL 138 MMOL/L (136-145); TOTAL PROTEIN 7.5 G/DL (5.7-8.2)
[2022-12-07] MEDS ORDERED: ISOVUE-370 76% 100ML VIAL As Ordered ONE (18:43)
== END 2022-12-07 21:50 | disposition home or self-care (01) ==
LOC: M ED 14:38
DX: S30.1XXA Contusion of abdominal wall, initial encounter (principal); I48.91 Unspecified atrial fibrillation; I25.10 Atherosclerotic heart disease of native coronary artery without angina pectoris; E11.9 Type 2 diabetes mellitus without complications; I10 Essential (primary) hypertension; E78.5 Hyperlipidemia, unspecified; J44.9 Chronic obstructive pulmonary disease, unspecified; E66.9 Obesity, unspecified; E03.9 Hypothyroidism, unspecified; Z87.891 Personal history of nicotine dependence; Z88.2 Allergy status to sulfonamides; Z88.9 Allergy status to unspecified drugs, medicaments and biological substances; Z79.82 Long term (current) use of aspirin; Z79.4 Long term (current) use of insulin; Z79.01 Long term (current) use of anticoagulants; Z79.899 Other long term (current) drug therapy
CPT/HCPCS: 74177; 80048; 80076; 83690; 85025; 85610; 85730; 93041; 99284; Q9967

== ENCOUNTER 2023-02-15 04:18 | Emergency (ER) | payer MEDICAID, OTHER ==
[~2023-02-15] VITALS: Ht 154.9 cm; Wt 104.5 kg
[2023-02-15 04:59] LABS: BASO % 0.4 % (0.0-1.0); EOS # 0.1 10^3/uL (0.0-0.5); EOS % 1.4 % (0.0-3.0); HEMATOCRIT 39.8 % (36.0-47.0); LYMPH # 2.6 10^3/uL (1.5-5.0); LYMPH % 26.6 % (24.0-44.0); MEAN CORPUSCULAR HGB CONC 32.7 g/dl (32.0-36.5); MEAN CORPUSCULAR VOLUME 91.7 fl (80.0-96.0); MONO # 0.8 10^3/uL (0.0-0.8); MONO % 8.5 % (2.0-8.0); NEUTROPHILS # 6.3 10^3/uL (1.5-8.5); NEUTROPHILS % 62.9 % (36.0-66.0); PLATELET COUNT, AUTOMATED 599 10^3/uL (150-450); RED BLOOD COUNT 4.34 10^6/uL (4.00-5.40); WHITE BLOOD COUNT 9.9 10^3/uL (4.0-10.0)
[2023-02-15 05:10] LABS: INR 1.36
[2023-02-15 05:24] LABS: ALBUMIN 3.6 G/DL (3.2-5.2); ALKALINE PHOSPHATASE 67 U/L (46-116); ALT/SGPT 34 U/L (7.0-40); AST/SGOT 28 U/L (<34); BILIRUBIN,DIRECT 0.2 MG/DL (<0.4); BILIRUBIN,TOTAL 0.4 MG/DL (0.3-1.2); BLOOD UREA NITROGEN 27 MG/DL (9-23); CALCIUM LEVEL 9.6 MG/DL (8.3-10.6); CARBON DIOXIDE LEVEL 29 MMOL/L (20-31); CHLORIDE LEVEL 94 MMOL/L (98-107); GLOMERULAR FILTRATION RATE > 60.0 (>39); GLUCOSE, FASTING 483 MG/DL (74-106); POTASSIUM SERUM 4.4 MMOL/L (3.5-5.1); SODIUM LEVEL 130 MMOL/L (136-145)
[2023-02-15] MEDS ORDERED: OXYMETAZOLINE 0.05% NASAL SPRAY (AFRIN) ONE (07:20)
[2023-02-15] MEDS ORDERED: HumuLIN R (REGULAR) INSULIN (NovoLIN R) **100U/ML** PER UNIT IV ONE (07:45)
[2023-02-15] MEDS ORDERED: NS 250 ML IV ONE (07:45)
[2023-02-15] MEDS ORDERED: CEPH500C PO (10:16)
[2023-02-15 10:49] VITALS: BP 136/65
== END 2023-02-15 11:24 | disposition home or self-care (01) ==
LOC: M ED 04:18
DX: R04.0 Epistaxis (principal); E11.9 Type 2 diabetes mellitus without complications; I25.10 Atherosclerotic heart disease of native coronary artery without angina pectoris; I25.2 Old myocardial infarction; E03.9 Hypothyroidism, unspecified; F41.9 Anxiety disorder, unspecified; F32.A Depression, unspecified; J44.9 Chronic obstructive pulmonary disease, unspecified
CPT/HCPCS: 80048; 80076; 85025; 85610; 93041; 94760; 96374; 99285; J1815

== ENCOUNTER → 2023-02-24 | Outpatient (CLI) | payer OTHER ==
[~2023-02-24] MED LIST changes: +CEPH500C PO
[2023-02-24 09:44] LABS: BASO # 0.1 10^3/uL (0.0-0.2); BASO % 0.7 % (0.0-1.0); EOS # 0.2 10^3/uL (0.0-0.5); EOS % 2.3 % (0.0-3.0); HEMATOCRIT 39.3 % (36.0-47.0); HEMOGLOBIN 12.6 g/dl (12.0-15.5); LYMPH # 2.5 10^3/uL (1.5-5.0); LYMPH % 29.9 % (24.0-44.0); MEAN CORPUSCULAR HEMOGLOBIN 30.1 pg (27.0-33.0); MEAN CORPUSCULAR HGB CONC 32.1 g/dl (32.0-36.5); MEAN CORPUSCULAR VOLUME 93.8 fl (80.0-96.0); MONO # 0.7 10^3/uL (0.0-0.8); MONO % 8.6 % (2.0-8.0); NEUTROPHILS # 4.8 10^3/uL (1.5-8.5); NEUTROPHILS % 58.3 % (36.0-66.0); PLATELET COUNT, AUTOMATED 621 10^3/uL (150-450); RED BLOOD COUNT 4.19 10^6/uL (4.00-5.40); WHITE BLOOD COUNT 8.2 10^3/uL (4.0-10.0)
[2023-02-24 10:08] LABS: CPK CREATINE PHOSPHOKINASE 31 U/L (34-145)
[2023-02-24 10:19] LABS: ALBUMIN 3.1 G/DL (3.2-5.2); ALKALINE PHOSPHATASE 65 U/L (46-116); ALT/SGPT 36 U/L (7.0-40); AST/SGOT 25 U/L (<34); BILIRUBIN,TOTAL 0.4 MG/DL (0.3-1.2); BLOOD UREA NITROGEN 27 MG/DL (9-23); CALCIUM LEVEL 9.4 MG/DL (8.3-10.6); CARBON DIOXIDE LEVEL 31 MMOL/L (20-31); CHLORIDE LEVEL 92 MMOL/L (98-107); CHOLESTEROL LEVEL 114 MG/DL (<200); CHOLESTEROL RISK RATIO 2.62 (<5); CREATININE FOR GFR 0.95 MG/DL (0.55-1.30); FREE T4 0.95 NG/DL (0.89-1.76); GLOMERULAR FILTRATION RATE > 60.0 (>39); GLUCOSE, FASTING 508 MG/DL (74-106); HDL CHOLESTEROL 43.5 MG/DL (>40); LDL CHOLESTEROL 45.3 MG/DL (<100); NON-HDL-C 70.5 MG/DL; POTASSIUM SERUM 5.1 MMOL/L (3.5-5.1); PTH INTACT 50.7 PG/ML (18.5-88.0); SODIUM LEVEL 126 MMOL/L (136-145); THYROID STIMULATING HORMONE 4.029 uIU/ML (0.55-4.78); TOTAL 25(OH) VITAMIN D 53.8 NG/ML (20.0-100.0); TOTAL PROTEIN 6.8 G/DL (5.7-8.2); TRIGLYCERIDES LEVEL 126 MG/DL (<150)
[2023-02-24 10:35] LABS: HEMOGLOBIN A1c > 14.0 % (4.0-6.0)
== END ==
LOC: M LAB 08:48
PROVIDERS: ATTEND Physician Assistant Medical
DX: E11.8 Type 2 diabetes mellitus with unspecified complications (principal)

== ENCOUNTER → 2023-06-04 | Outpatient (CLI) | payer OTHER, MEDICAID | LOC: M WUC 14:52 | PROVIDERS: ATTEND Physician Assistant | DX: S40.011A Contusion of right shoulder, initial encounter (principal); S40.021A Contusion of right upper arm, initial encounter ==

== ENCOUNTER → 2023-06-27 | Outpatient (CLI) | payer OTHER, MEDICAID ==
[~2023-06-27] MED LIST changes: -BISO5TAB14; +VALS1TAB66 PO
[2023-06-27 10:33] LABS: BASO # 0.1 10^3/uL (0.0-0.2); BASO % 0.6 % (0.0-1.0); EOS # 0.2 10^3/uL (0.0-0.5); EOS % 2.8 % (0.0-3.0); HEMATOCRIT 41.9 % (36.0-47.0); HEMOGLOBIN 13.5 g/dl (12.0-15.5); LYMPH # 2.4 10^3/uL (1.5-5.0); LYMPH % 30.5 % (24.0-44.0); MEAN CORPUSCULAR HEMOGLOBIN 29.5 pg (27.0-33.0); MEAN CORPUSCULAR HGB CONC 32.2 g/dl (32.0-36.5); MEAN CORPUSCULAR VOLUME 91.7 fl (80.0-96.0); MONO # 0.7 10^3/uL (0.0-0.8); NEUTROPHILS # 4.4 10^3/uL (1.5-8.5); NEUTROPHILS % 56.8 % (36.0-66.0); PLATELET COUNT, AUTOMATED 506 10^3/uL (150-450); RED BLOOD COUNT 4.57 10^6/uL (4.00-5.40); WHITE BLOOD COUNT 7.8 10^3/uL (4.0-10.0)
[2023-06-27 10:45] LABS: CREATININE, URINE 97.9 MG/DL
[2023-06-27 10:46] LABS: MAU/CREAT RATIO 27.5 MCG/MG (0.0-30.0)
[2023-06-27 10:55] LABS: FREE T4 1.09 NG/DL (0.89-1.76)
[2023-06-27 10:56] LABS: ALKALINE PHOSPHATASE 55 U/L (46-116); ALT/SGPT 20 U/L (7.0-40); AST/SGOT 20 U/L (<34); BILIRUBIN,TOTAL 0.5 MG/DL (0.3-1.2); BLOOD UREA NITROGEN 16 MG/DL (9-23); CALCIUM LEVEL 9.3 MG/DL (8.3-10.6); CARBON DIOXIDE LEVEL 26 MMOL/L (20-31); CHLORIDE LEVEL 104 MMOL/L (98-107); CHOLESTEROL LEVEL 125 MG/DL (<200); CREATININE FOR GFR 0.74 MG/DL (0.55-1.30); GLOMERULAR FILTRATION RATE > 60.0 (>39); GLUCOSE, FASTING 132 MG/DL (74-106); LDL CHOLESTEROL 55.4 MG/DL (<100); MAGNESIUM LEVEL 1.5 MG/DL (1.8-2.4); POTASSIUM SERUM 4.8 MMOL/L (3.5-5.1); SODIUM LEVEL 139 MMOL/L (136-145); TOTAL PROTEIN 6.2 G/DL (5.7-8.2); TRIGLYCERIDES LEVEL 133 MG/DL (<150)
[2023-06-27 10:57] LABS: THYROID STIMULATING HORMONE 3.014 uIU/ML (0.55-4.78); TOTAL 25(OH) VITAMIN D 56.8 NG/ML (20.0-100.0)
[2023-06-27 11:36] LABS: HEMOGLOBIN A1c > 14.0 % (4.0-6.0)
== END ==
LOC: M LAB 08:57
PROVIDERS: ATTEND Nurse Practitioner Family
DX: E03.9 Hypothyroidism, unspecified (principal); E11.8 Type 2 diabetes mellitus with unspecified complications; I11.0 Hypertensive heart disease with heart failure; E55.9 Vitamin D deficiency, unspecified; E78.2 Mixed hyperlipidemia

== ENCOUNTER → 2023-08-26 | Outpatient (CLI) | payer OTHER, MEDICAID | LOC: M WHC 13:41 | PROVIDERS: ATTEND Nurse Practitioner Women's Health | DX: C50.812 Malignant neoplasm of overlapping sites of left female breast (principal) | CPT/HCPCS: 77066; G0279 ==

== ENCOUNTER → 2023-12-04 | Outpatient (REF) | payer OTHER, MEDICAID ==
[~2023-12-04] MED LIST changes: +ALBU8.5H INH SA
== END ==
LOC: M SFHCPLAZ 11:24
PROVIDERS: ATTEND Family Medicine
DX: I50.32 Chronic diastolic (congestive) heart failure (principal); E11.65 Type 2 diabetes mellitus with hyperglycemia; Z53.9 Procedure and treatment not carried out, unspecified reason

== ENCOUNTER → 2023-12-04 | Outpatient (CLI) | payer OTHER, MEDICAID ==
[2023-12-04 14:25] LABS: BASO # 0.1 10^3/uL (0.0-0.2); BASO % 0.9 % (0.0-1.0); EOS # 0.1 10^3/uL (0.0-0.5); EOS % 1.6 % (0.0-3.0); HEMATOCRIT 45.8 % (36.0-47.0); HEMOGLOBIN 14.9 g/dl (12.0-15.5); LYMPH # 2.1 10^3/uL (1.5-5.0); LYMPH % 24.8 % (24.0-44.0); MEAN CORPUSCULAR HEMOGLOBIN 26.9 pg (27.0-33.0); MEAN CORPUSCULAR HGB CONC 32.5 g/dl (32.0-36.5); MEAN CORPUSCULAR VOLUME 82.8 fl (80.0-96.0); MONO # 0.6 10^3/uL (0.0-0.8); MONO % 7.2 % (2.0-8.0); NEUTROPHILS # 5.5 10^3/uL (1.5-8.5); NEUTROPHILS % 65.3 % (36.0-66.0); PLATELET COUNT, AUTOMATED 561 10^3/uL (150-450); RED BLOOD COUNT 5.53 10^6/uL (4.00-5.40); WHITE BLOOD COUNT 8.5 10^3/uL (4.0-10.0)
[2023-12-04 15:04] LABS: FERRITIN 16.3 NG/ML (7.3-270.7)
[2023-12-04 15:51] LABS: ALBUMIN 3.9 G/DL (3.2-5.2); ALKALINE PHOSPHATASE 77 U/L (46-116); ALT/SGPT 27 U/L (7.0-40); AST/SGOT 27 U/L (<34); BILIRUBIN,TOTAL 0.8 MG/DL (0.3-1.2); BLOOD UREA NITROGEN 13 MG/DL (9-23); CALCIUM LEVEL 9.6 MG/DL (8.3-10.6); CARBON DIOXIDE LEVEL 26 MMOL/L (20-31); CHLORIDE LEVEL 93 MMOL/L (98-107); CREATININE FOR GFR 0.65 MG/DL (0.55-1.30); GLOMERULAR FILTRATION RATE > 60.0 (>39); GLUCOSE, FASTING 435 MG/DL (74-106); MAGNESIUM LEVEL 1.6 MG/DL (1.8-2.4); SODIUM LEVEL 129 MMOL/L (136-145); TOTAL PROTEIN 7.7 G/DL (5.7-8.2)
[2023-12-04 20:55] LABS: HEMOGLOBIN A1c > 14.0 % (4.0-6.0)
== END ==
LOC: M PLALAB 11:46
PROVIDERS: ATTEND Family Medicine
DX: E11.65 Type 2 diabetes mellitus with hyperglycemia (principal); I50.32 Chronic diastolic (congestive) heart failure

== ENCOUNTER → 2024-03-29 | Outpatient (CLI) | payer OTHER, MEDICAID ==
[~2024-03-29] MED LIST changes: +TOUJ300I2 SC
== END ==
LOC: M WHC 10:41
PROVIDERS: ATTEND Specialist
DX: C50.912 Malignant neoplasm of unspecified site of left female breast (principal); M85.851 Other specified disorders of bone density and structure, right thigh; M85.852 Other specified disorders of bone density and structure, left thigh; Z79.811 Long term (current) use of aromatase inhibitors

== ENCOUNTER → 2024-08-10 | Outpatient (CLI) | payer OTHER, MEDICAID ==
[~2024-08-10] MED LIST changes: +GABA-1172 PO; -GABA-282 PO
[2024-08-10 09:50] LABS: BASO # 0.1 10^3/uL (0.0-0.2); EOS # 0.3 10^3/uL (0.0-0.5); EOS % 3.7 % (0.0-3.0); HEMATOCRIT 38.4 % (36.0-47.0); HEMOGLOBIN 12.5 g/dl (12.0-15.5); LYMPH # 2.2 10^3/uL (1.5-5.0); LYMPH % 29.7 % (24.0-44.0); MEAN CORPUSCULAR HGB CONC 32.6 g/dl (32.0-36.5); MEAN CORPUSCULAR VOLUME 92.3 fl (80.0-96.0); MONO # 0.8 10^3/uL (0.0-0.8); MONO % 10.3 % (2.0-8.0); NEUTROPHILS % 55.2 % (36.0-66.0); PLATELET COUNT, AUTOMATED 466 10^3/uL (150-450); RED BLOOD COUNT 4.16 10^6/uL (4.00-5.40); WHITE BLOOD COUNT 7.3 10^3/uL (4.0-10.0)
[2024-08-10 10:17] LABS: HEMOGLOBIN A1c 7.3 % (4.0-6.0)
[2024-08-10 10:18] LABS: IRON (FE) 46 UG/DL (50-170); PERCENT SATURATION 13.3 % (13.2-45.0); TOTAL IRON BINDING CAPACITY 347 UG/DL (250-425)
[2024-08-10 10:19] LABS: ALBUMIN 3.7 G/DL (3.2-5.2); ALKALINE PHOSPHATASE 77 U/L (46-116); ALT/SGPT 28 U/L (7.0-40); AST/SGOT 23 U/L (<34); BILIRUBIN,TOTAL 0.8 MG/DL (0.3-1.2); BLOOD UREA NITROGEN 22 MG/DL (9-23); CALCIUM LEVEL 9.7 MG/DL (8.3-10.6); CARBON DIOXIDE LEVEL 29 MMOL/L (20-31); CHLORIDE LEVEL 106 MMOL/L (98-107); CHOLESTEROL LEVEL 108 MG/DL (<200); CHOLESTEROL RISK RATIO 2.11 (<5); CREATININE FOR GFR 0.86 MG/DL (0.55-1.30); GLOMERULAR FILTRATION RATE > 60.0 (>39); GLUCOSE, FASTING 95 MG/DL (74-106); HDL CHOLESTEROL 51.1 MG/DL (>40); LDL CHOLESTEROL 49.5 MG/DL (<100); NON-HDL-C 56.9 MG/DL; POTASSIUM SERUM 4.8 MMOL/L (3.5-5.1); SODIUM LEVEL 140 MMOL/L (136-145); THYROID STIMULATING HORMONE 2.861 uIU/ML (0.55-4.78); TOTAL PROTEIN 7.1 G/DL (5.7-8.2); TRIGLYCERIDES LEVEL 37 MG/DL (<150)
[2024-08-10 10:20] LABS: FREE T4 1.31 NG/DL (0.89-1.76)
[2024-08-12 13:59] LABS: CREATININE, URINE 99.5 MG/DL
[2024-08-12 14:00] LABS: MAU/CREAT RATIO 98.4 MCG/MG (0.0-30.0)
== END ==
LOC: M LAB 08:34
PROVIDERS: ATTEND Nurse Practitioner Family
DX: E11.65 Type 2 diabetes mellitus with hyperglycemia (principal); I11.0 Hypertensive heart disease with heart failure; I50.32 Chronic diastolic (congestive) heart failure; D50.9 Iron deficiency anemia, unspecified; E03.9 Hypothyroidism, unspecified; E78.2 Mixed hyperlipidemia

== ENCOUNTER → 2024-08-30 | Outpatient (CLI) | payer OTHER, MEDICAID | LOC: M WHC 14:05 | PROVIDERS: ATTEND Nurse Practitioner Family | DX: Z12.31 Encounter for screening mammogram for malignant neoplasm of breast (principal); Z85.3 Personal history of malignant neoplasm of breast; R92.323 Mammographic fibroglandular density, bilateral breasts | CPT/HCPCS: 77066; G0279 ==

== ENCOUNTER 2024-10-04 12:22 | Emergency (ER) | payer OTHER, MEDICAID ==
[~2024-10-04 12:22] MED LIST changes: -ADV250INH INH; -ADV500INH INH; +ADVA1AER10 INH; +ADVA1AER9 INH
[2024-10-04 14:33] LABS: BASO # 0.1 10^3/uL (0.0-0.2); BASO % 0.9 % (0.0-1.0); EOS # 0.3 10^3/uL (0.0-0.5); EOS % 3.8 % (0.0-3.0); HEMATOCRIT 37.2 % (36.0-47.0); HEMOGLOBIN 11.9 g/dl (12.0-15.5); LYMPH # 1.7 10^3/uL (1.5-5.0); LYMPH % 21.1 % (24.0-44.0); MEAN CORPUSCULAR HEMOGLOBIN 29.5 pg (27.0-33.0); MEAN CORPUSCULAR VOLUME 92.1 fl (80.0-96.0); MONO # 0.6 10^3/uL (0.0-0.8); NEUTROPHILS # 5.2 10^3/uL (1.5-8.5); NEUTROPHILS % 66.1 % (36.0-66.0); PLATELET COUNT, AUTOMATED 470 10^3/uL (150-450); RED BLOOD COUNT 4.04 10^6/uL (4.00-5.40); WHITE BLOOD COUNT 7.9 10^3/uL (4.0-10.0)
[2024-10-04 14:49] LABS: INR 1.85; PROTHROMBIN TIME 21.5 SECONDS (12.5-14.5)
[2024-10-04 14:59] LABS: LIPASE 28 U/L (12-53)
[2024-10-04 15:01] LABS: ALBUMIN 3.7 G/DL (3.2-5.2); ALKALINE PHOSPHATASE 90 U/L (35-104); ALT/SGPT 18 U/L (7.0-40); AST/SGOT 24 U/L (<34); BILIRUBIN,DIRECT 0.4 MG/DL (<0.4); BILIRUBIN,TOTAL 0.8 MG/DL (0.3-1.2); BLOOD UREA NITROGEN 17 MG/DL (9-23); CALCIUM LEVEL 9.6 MG/DL (8.3-10.6); CARBON DIOXIDE LEVEL 25 MMOL/L (20-31); CHLORIDE LEVEL 102 MMOL/L (98-107); CK-MB VALUE MASS < 1.0 NG/ML (<3.6); CPK CREATINE PHOSPHOKINASE 33 U/L (34-145); CREATININE FOR GFR 0.74 MG/DL (0.55-1.30); GLOMERULAR FILTRATION RATE > 60.0 (>39); GLUCOSE, FASTING 243 MG/DL (74-106); MB/CK RELATIVE INDEX 3.03 (< OR =4); POTASSIUM SERUM 4.8 MMOL/L (3.5-5.1); SODIUM LEVEL 136 MMOL/L (136-145); TOTAL PROTEIN 7.7 G/DL (5.7-8.2)
[2024-10-04 15:03] LABS: FREE T4 1.29 NG/DL (0.89-1.76); THYROID STIMULATING HORMONE 2.401 uIU/ML (0.55-4.78)
[2024-10-04 17:01] VITALS: BP 192/81; TEMP 99; O2SAT 95
== END 2024-10-04 17:20 | disposition left against medical advice (07) ==
LOC: M ED 12:22
DX: I48.91 Unspecified atrial fibrillation (principal); I10 Essential (primary) hypertension; Z53.9 Procedure and treatment not carried out, unspecified reason; R60.9 Edema, unspecified; E03.9 Hypothyroidism, unspecified; I25.10 Atherosclerotic heart disease of native coronary artery without angina pectoris; J44.9 Chronic obstructive pulmonary disease, unspecified; Z85.3 Personal history of malignant neoplasm of breast; E11.9 Type 2 diabetes mellitus without complications; K21.9 Gastro-esophageal reflux disease without esophagitis; Z79.01 Long term (current) use of anticoagulants; Z79.4 Long term (current) use of insulin; Z79.899 Other long term (current) drug therapy; Z88.2 Allergy status to sulfonamides; Z88.8 Allergy status to other drugs, medicaments and biological substances

== ENCOUNTER → 2025-01-21 | Outpatient (CLI) | payer OTHER, MEDICAID ==
[~2025-01-21] MED LIST changes: +LIRA0.6P; +NOVOINJ3; +TIRZ5PEN
[2025-01-21 15:08] LABS: HEMOGLOBIN A1c 11.2 % (4.0-6.0)
[2025-01-21 15:36] LABS: IRON (FE) 64 UG/DL (50-170); PERCENT SATURATION 16.4 % (13.2-45.0); TOTAL IRON BINDING CAPACITY 390 UG/DL (250-425)
[2025-01-21 15:37] LABS: ALBUMIN 3.7 G/DL (3.2-5.2); ALKALINE PHOSPHATASE 63 U/L (35-104); ALT/SGPT 19 U/L (7.0-40); AST/SGOT 19 U/L (<34); BILIRUBIN,TOTAL 0.7 MG/DL (0.3-1.2); BLOOD UREA NITROGEN 15 MG/DL (9-23); CALCIUM LEVEL 9.1 MG/DL (8.3-10.6); CARBON DIOXIDE LEVEL 25 MMOL/L (20-31); CHLORIDE LEVEL 97 MMOL/L (98-107); CHOLESTEROL LEVEL 95 MG/DL (<200); CHOLESTEROL RISK RATIO 2.06 (<5); CREATININE FOR GFR 0.77 MG/DL (0.55-1.30); FREE T4 1.34 NG/DL (0.89-1.76); GLOMERULAR FILTRATION RATE > 60.0 (>39); GLUCOSE, FASTING 349 MG/DL (74-106); LDL CHOLESTEROL 31.4 MG/DL (<100); MAGNESIUM LEVEL 1.7 MG/DL (1.8-2.4); POTASSIUM SERUM 5.2 MMOL/L (3.5-5.1); SODIUM LEVEL 131 MMOL/L (136-145); THYROID STIMULATING HORMONE 2.223 uIU/ML (0.55-4.78); TOTAL PROTEIN 7.4 G/DL (5.7-8.2); TRIGLYCERIDES LEVEL 88 MG/DL (<150)
== END ==
LOC: M PLALAB 11:55
PROVIDERS: ATTEND Nurse Practitioner Family
DX: D50.9 Iron deficiency anemia, unspecified (principal); I10 Essential (primary) hypertension; E11.65 Type 2 diabetes mellitus with hyperglycemia; E78.2 Mixed hyperlipidemia; E03.9 Hypothyroidism, unspecified

== ENCOUNTER 2025-02-26 15:39 | Inpatient (IN) | payer OTHER, MEDICAID ==
[~2025-02-26] VITALS: Ht 154.9 cm; Wt 78.7 kg
[2025-02-26 16:28] LABS: VENOUS BASE EXCESS 2.3 (-2.0-2.0); VENOUS HCO3 27.4 MMOL/L (23.0-27.0); VENOUS O2 SATURATION 72.8 % (60.0-80.0); VENOUS PARTIAL PRESSURE CO2 44.4 mmHg (38.0-50.0); VENOUS PARTIAL PRESSURE O2 36.9 mmHg (30.0-50.0); VENOUS PH 7.409 UNITS (7.330-7.430); VENOUS STANDARD HCO3 25.8 MMOL/L; VENOUS TOTAL CO2 28.8 MMOL/L (24.0-28.0)
[2025-02-26 16:39] LABS: BASO # 0.1 10^3/uL (0.0-0.2); BASO % 0.6 % (0.0-1.0); EOS # 0.1 10^3/uL (0.0-0.5); EOS % 1.4 % (0.0-3.0); HEMATOCRIT 43.4 % (36.0-47.0); HEMOGLOBIN 14.5 g/dl (12.0-15.5); LYMPH # 1.9 10^3/uL (1.5-5.0); LYMPH % 23.6 % (24.0-44.0); MEAN CORPUSCULAR HEMOGLOBIN 29.1 pg (27.0-33.0); MEAN CORPUSCULAR HGB CONC 33.4 g/dl (32.0-36.5); MEAN CORPUSCULAR VOLUME 87.1 fl (80.0-96.0); MONO # 0.6 10^3/uL (0.0-0.8); MONO % 7.8 % (2.0-8.0); NEUTROPHILS # 5.3 10^3/uL (1.5-8.5); NEUTROPHILS % 66.3 % (36.0-66.0); PLATELET COUNT, AUTOMATED 524 10^3/uL (150-450); RED BLOOD COUNT 4.98 10^6/uL (4.00-5.40)
[2025-02-26] MEDS ORDERED: ISOVUE-370 76% 100ML VIAL As Ordered ONE (16:52)
[2025-02-26 16:56] LABS: CK-MB VALUE MASS 1.2 NG/ML (<3.6)
[2025-02-26 16:57] LABS: ETHYL ALCOHOL (ETHANOL) < 0.003 % (0.000-0.010); LIPASE 26 U/L (12-53)
[2025-02-26 16:59] LABS: SALICYLATE LEVEL < 3.0 MG/DL (<30)
[2025-02-26 17:00] LABS: THYROID STIMULATING HORMONE 1.564 uIU/ML (0.55-4.78)
[2025-02-26] MEDS: NS 500 ML IV ONE ×2 (17:01→17:47)
[2025-02-26 17:05] LABS: ALBUMIN 3.3 G/DL (3.2-5.2); ALKALINE PHOSPHATASE 46 U/L (35-104); ALT/SGPT 27 U/L (7.0-40); AST/SGOT 42 U/L (<34); BILIRUBIN,DIRECT 0.2 MG/DL (<0.4); BILIRUBIN,TOTAL 0.7 MG/DL (0.3-1.2); BLOOD UREA NITROGEN 24 MG/DL (9-23); CALCIUM LEVEL 9.4 MG/DL (8.3-10.6); CARBON DIOXIDE LEVEL 26 MMOL/L (20-31); CHLORIDE LEVEL 93 MMOL/L (98-107); CPK CREATINE PHOSPHOKINASE 43 U/L (34-145); GLOMERULAR FILTRATION RATE 50.8 (>32); GLUCOSE, FASTING 442 MG/DL (74-106); MB/CK RELATIVE INDEX 2.79 (< OR =4); POTASSIUM SERUM 5.7 MMOL/L (3.5-5.1); SODIUM LEVEL 129 MMOL/L (136-145); TOTAL PROTEIN 6.7 G/DL (5.7-8.2)
[2025-02-26 17:05] LABS: HEMOGLOBIN A1c > 14.0 % (4.0-6.0)
[2025-02-26] MEDS: BOOSTRIX VACCINE (TETANUS/DIPHTH/ACEL. PERTUSSIS) 0.5ML SYR IM.IMMUN ONE (17:08)
[2025-02-26] MEDS: LIDOCAINE 2% 5ML JELLY UROJET TOP ONE (17:25)
[2025-02-26] MEDS: HumuLIN R (REGULAR) INSULIN (NovoLIN R) **100U/ML** PER UNIT IV ONE (17:58)
[2025-02-26 18:03] LABS: KETONE, URINE AUTO RFX TRACE mg/dL (NEGATIVE); MUCUS, URINE RFX SMALL (NEGATIVE); RBC, URINE AUTO RFX 0 /HPF (0-3); SQUAM EPITHELIAL CELL UR AURFX 4 /HPF (0-6); WBC, URINE AUTO RFX 7 /HPF (0-3)
[2025-02-26 18:07] LABS: LEUKOCYTE ESTERASE UR AUTO RFX TRACE (NEGATIVE); NITRITE, URINE AUTO RFX POSITIVE (NEGATIVE)
[2025-02-26 18:11] LABS: INR 1.28; PARTIAL THROMBOPLASTIN TIME 30.7 SECONDS (24.8-34.2); PROTHROMBIN TIME 16.3 SECONDS (12.5-14.5)
[2025-02-26] MEDS: ALBUTEROL SULFATE 2.5MG/0.5ML INH CONCENTRATE NEB SOLN INH ONE (18:15)
[2025-02-26 18:30] LABS: BARBITURATES URINE NEGATIVE (NEGATIVE); COCAINE METABOLITE URINE NEGATIVE (NEGATIVE); METHADONE URINE NEGATIVE (NEGATIVE); OPIATES URINE NEGATIVE (NEGATIVE)
[2025-02-26 18:31] LABS: AMPHETAMINES LEVEL URINE NEGATIVE (NEGATIVE); BENZODIAZEPINES URINE NEGATIVE (NEGATIVE); CANNABINOIDS URINE NEGATIVE (NEGATIVE); PHENCYCLIDINE URINE NEGATIVE (NEGATIVE)
[2025-02-26 18:40] LABS: MB/CK RELATIVE INDEX 3.03 (< OR =4)
[2025-02-26] MEDS: SODIUM BICARBONATE 8.4% INJ 50ML SYRINGE IV ONE (18:49)
[2025-02-26] MEDS: CALCIUM GLUCONATE 1,000MG/10ML VIAL (100MG/ML) IV ONE (18:50)
[2025-02-26] MEDS ORDERED: OXYB-54 PO (19:42)
[2025-02-26] MEDS ORDERED: FURO40TA2 PO (19:44)
[2025-02-26] MEDS ORDERED: ADVA230A INH (19:55)
[2025-02-26] MEDS ORDERED: HOME MED LIST COMPLETE! XX SCH (22:10)
[2025-02-26] MEDS ORDERED: MAALOX 30 ML SUSP *UDC PO PRN (22:40)
[2025-02-26] MEDS ORDERED: MOM 30ML SUSPENSION UDC PO PRN (22:40)
[2025-02-26] MEDS ORDERED: ALBUTEROL 90 MCG/ACT 8GM HFA INHALER INH PRN (22:40)
[2025-02-26] MEDS ORDERED: GLUCAGON INJ 1MG VIAL SC PRN (22:55)
[2025-02-26] MEDS ORDERED: GLUCOSE 4 GM CHEW PO PRN (22:55)
[2025-02-26] MEDS ORDERED: DEXTROSE 50% 50ML SYRINGE IV PRN (22:55)
[2025-02-26] MEDS: ATORVASTATIN 20 MG TAB PO SCH (23:50)
[2025-02-26] MEDS: APIXABAN 5 MG TAB (ELIQUIS) PO SCH (23:50)
[2025-02-26] MEDS: LanTUS (INSULIN GLARGINE INJ) 1 UNITS/0.01 ML SC SCH (23:51)
[2025-02-26] MEDS: GABAPENTIN 300 MG CAP PO SCH (23:51)
[2025-02-26] MEDS: SOD POLYSTYRENE SULFONATE SUSP 15GM 60ML UD PO STA (23:51)
[2025-02-26] MEDS: NS (Normal Saline) 0.9% 1,000 ML IV SCH (23:52)
[2025-02-27 00:38] VITALS: BP 148/67; TEMP 97.3; O2SAT 97
[2025-02-27] MEDS: INSULIN LISPRO (NovoLOG) PER UNIT SC SCH ×2 (01:48→08:18)
[2025-02-27] MEDS: NYSTATIN 100,000 UNITS/GM TOPICAL PWD 15GM TOP SCH (02:55)
[2025-02-27 04:02] VITALS: BP 122/50; TEMP 97.3; O2SAT 96
[2025-02-27] MEDS: LEVOTHYROXINE 50MCG TABLET (0.05MG) PO SCH (05:25)
[2025-02-27 05:45] LABS: HEMATOCRIT 39.2 % (36.0-47.0); HEMOGLOBIN 13.3 g/dl (12.0-15.5); MEAN CORPUSCULAR HEMOGLOBIN 29.2 pg (27.0-33.0); MEAN CORPUSCULAR HGB CONC 33.9 g/dl (32.0-36.5); PLATELET COUNT, AUTOMATED 438 10^3/uL (150-450); RED BLOOD COUNT 4.56 10^6/uL (4.00-5.40); WHITE BLOOD COUNT 7.7 10^3/uL (4.0-10.0)
[2025-02-27 06:11] LABS: ALBUMIN 2.7 G/DL (3.2-5.2); BILIRUBIN,TOTAL 0.5 MG/DL (0.3-1.2); CALCIUM LEVEL 8.2 MG/DL (8.3-10.6); CREATININE FOR GFR 0.68 MG/DL (0.55-1.30); POTASSIUM SERUM 3.9 MMOL/L (3.5-5.1); TOTAL PROTEIN 5.5 G/DL (5.7-8.2)
[2025-02-27] MEDS: ADVAIR HFA 230/21MCG INHALER INH SCH (07:42)
[2025-02-27] MEDS: VITAMIN D 1,000 INTERNATIONAL UNITS TABLET PO SCH (08:18)
[2025-02-27] MEDS: FUROSEMIDE 40 MG TAB PO SCH (08:19)
[2025-02-27] MEDS: FAMOTIDINE 20 MG TAB PO SCH (08:19)
[2025-02-27] MEDS: OMEPRAZOLE 20MG CAP PO SCH (08:19)
[2025-02-27] MEDS: DOCUSATE SODIUM 100MG CAPSULE PO SCH (08:19)
[2025-02-27] MEDS: FOLIC ACID 1MG TAB PO SCH (08:26)
[2025-02-27] MEDS: CitaloPRAM (CeleXA) 20 MG TAB PO SCH (08:26)
[2025-02-27] MEDS: BISOPROLOL FUM 2.5 MG PER 1/2TAB PO SCH (08:26)
[2025-02-27] MEDS: VALSARTAN 80 MG TAB (DIOVAN) PO SCH (09:00)
[2025-02-27 09:29] VITALS: BP 92/42; TEMP 97.3; O2SAT 95
[2025-02-27] MEDS: AUGMENTIN 500MG TAB PO SCH (11:11)
[2025-02-27 12:00] VITALS: BP 150/65; TEMP 97.7; O2SAT 97
[2025-02-27] MEDS: LanTUS (INSULIN GLARGINE INJ) 1 UNITS/0.01 ML SC SCH ×2 (13:20→20:19)
[2025-02-27 16:00] VITALS: BP 118/50; TEMP 97.7; O2SAT 97
[2025-02-27 19:58] VITALS: BP 137/48; TEMP 98.4; O2SAT 96
[2025-02-27] MEDS: ACETAMINOPHEN 325 MG TAB PO PRN (20:16)
[2025-02-28 01:03] VITALS: BP 126/62; TEMP 98.6
[2025-02-28 05:29] VITALS: BP 123/66; TEMP 98.6; O2SAT 97
[2025-02-28 05:49] LABS: HEMATOCRIT 39.2 % (36.0-47.0); MEAN CORPUSCULAR HEMOGLOBIN 29.2 pg (27.0-33.0); MEAN CORPUSCULAR HGB CONC 33.2 g/dl (32.0-36.5); MEAN CORPUSCULAR VOLUME 88.1 fl (80.0-96.0); PLATELET COUNT, AUTOMATED 409 10^3/uL (150-450); RED BLOOD COUNT 4.45 10^6/uL (4.00-5.40); WHITE BLOOD COUNT 7.2 10^3/uL (4.0-10.0)
[2025-02-28 06:09] LABS: CALCIUM LEVEL 8.7 MG/DL (8.3-10.6); CREATININE FOR GFR 0.74 MG/DL (0.55-1.30); GLOMERULAR FILTRATION RATE 81.7 (>32); POTASSIUM SERUM 4.5 MMOL/L (3.5-5.1)
[2025-02-28 08:28] VITALS: BP 122/58; TEMP 97.9; O2SAT 98
[2025-02-28] MEDS: LanTUS (INSULIN GLARGINE INJ) 1 UNITS/0.01 ML SC SCH (08:28)
[2025-02-28] MEDS ORDERED: ANASTROZOLE 1MG TABLET (PATIENT'S OWN MED) PO SCH (09:00)
[2025-02-28] MEDS ORDERED: NOVOINJ3 SC (09:46)
[2025-02-28] MEDS ORDERED: TOUJ1.2I SC (09:46)
[2025-02-28] MEDS: LanTUS (INSULIN GLARGINE INJ) 1 UNITS/0.01 ML SC STA (09:56)
[2025-02-28] MEDS ORDERED: ERTAPENEM SODIUM 1 GM in NS MINI-BAG PLUS 50 ML IV SCH (11:20)
[2025-02-28 11:55] VITALS: BP 140/60; TEMP 97.7; O2SAT 96
[2025-02-28] MEDS: INSULIN LISPRO (NovoLOG) PER UNIT SC SCH ×2 (12:51→12:52)
[2025-02-28 16:00] VITALS: BP 128/86; TEMP 98.8; O2SAT 96
[2025-02-28 20:09] VITALS: BP 142/53; TEMP 98.4; O2SAT 97
[2025-02-28] MEDS: FOSFOMYCIN TROMETHAMINE 3 GM POWDER PACKET (MONUROL) PO SCH (21:45)
[2025-03-01 00:40] VITALS: BP 144/68; TEMP 97.7; O2SAT 98
[2025-03-01 03:42] VITALS: BP 149/69; TEMP 97.7; O2SAT 96
[2025-03-01 05:56] LABS: HEMOGLOBIN 12.1 g/dl (12.0-15.5); MEAN CORPUSCULAR HGB CONC 32.7 g/dl (32.0-36.5); MEAN CORPUSCULAR VOLUME 88.7 fl (80.0-96.0); PLATELET COUNT, AUTOMATED 384 10^3/uL (150-450); RED BLOOD COUNT 4.17 10^6/uL (4.00-5.40); WHITE BLOOD COUNT 6.7 10^3/uL (4.0-10.0)
[2025-03-01 05:58] LABS: BLOOD UREA NITROGEN 14 MG/DL (9-23); CALCIUM LEVEL 8.8 MG/DL (8.3-10.6); CARBON DIOXIDE LEVEL 25 MMOL/L (20-31); CHLORIDE LEVEL 106 MMOL/L (98-107); CREATININE FOR GFR 0.57 MG/DL (0.55-1.30); GLOMERULAR FILTRATION RATE > 90.0 (>32); GLUCOSE, FASTING 290 MG/DL (74-106); SODIUM LEVEL 137 MMOL/L (136-145)
[2025-03-01] MEDS: LanTUS (INSULIN GLARGINE INJ) 1 UNITS/0.01 ML SC SCH (09:50)
[2025-03-01] MEDS ORDERED: TIRZ2.5P SQ (11:15)
[2025-03-01] MEDS ORDERED: TRUL10IN SC (11:15)
[2025-03-01] MEDS ORDERED: FOSF3PAC2 PO (11:18)
[2025-03-01] MEDS ORDERED: FARX1TAB3 PO (11:56)
[2025-03-01 12:00] VITALS: BP 181/63; TEMP 97.6; O2SAT 96
[2025-03-01] MEDS: INSULIN LISPRO (NovoLOG) PER UNIT SC SCH (12:31)
[2025-03-01] MEDS: LanTUS (INSULIN GLARGINE INJ) 1 UNITS/0.01 ML SC ONE (12:31)
[2025-03-01] MEDS ORDERED: VALSARTAN 80 MG TAB (DIOVAN) PO ONE (13:00)
[2025-03-01] MEDS: BISOPROLOL FUM 2.5 MG PER 1/2TAB PO ONE (14:30)
[2025-03-01 16:00] VITALS: BP 143/62; TEMP 97.9; O2SAT 96
[2025-03-01 19:33] VITALS: BP 121/52; TEMP 97.7; O2SAT 96
[2025-03-01] MEDS ORDERED: LanTUS (INSULIN GLARGINE INJ) 1 UNITS/0.01 ML SC SCH (21:00)
[2025-03-02 00:26] VITALS: BP 133/51; TEMP 97.9; O2SAT 96
[2025-03-02 04:00] VITALS: BP 141/64; TEMP 97.9; O2SAT 96
[2025-03-02 04:35] LABS: HEMATOCRIT 38.1 % (36.0-47.0); HEMOGLOBIN 12.6 g/dl (12.0-15.5); MEAN CORPUSCULAR HEMOGLOBIN 29.1 pg (27.0-33.0); MEAN CORPUSCULAR HGB CONC 33.1 g/dl (32.0-36.5); PLATELET COUNT, AUTOMATED 394 10^3/uL (150-450); RED BLOOD COUNT 4.33 10^6/uL (4.00-5.40); WHITE BLOOD COUNT 6.5 10^3/uL (4.0-10.0)
[2025-03-02 04:56] LABS: BLOOD UREA NITROGEN 10 MG/DL (9-23); CARBON DIOXIDE LEVEL 25 MMOL/L (20-31); CHLORIDE LEVEL 104 MMOL/L (98-107); CREATININE FOR GFR 0.54 MG/DL (0.55-1.30); GLOMERULAR FILTRATION RATE > 90.0 (>32); GLUCOSE, FASTING 201 MG/DL (74-106); POTASSIUM SERUM 4.7 MMOL/L (3.5-5.1); SODIUM LEVEL 137 MMOL/L (136-145)
[2025-03-02 08:00] VITALS: BP 144/68; TEMP 97.9; O2SAT 94
[2025-03-02] MEDS: LanTUS (INSULIN GLARGINE INJ) 1 UNITS/0.01 ML SC SCH (08:09)
[2025-03-02 08:14] VITALS: BP 144/68
[2025-03-02] MEDS: bisoproloL fumarate 5 MG TAB PO SCH (08:14)
[2025-03-02 12:00] VITALS: BP 153/54; TEMP 96.8; O2SAT 96
[2025-03-02] MEDS ORDERED: BISO5TAB14 PO (13:03)
[2025-03-02] MEDS ORDERED: TOUJ1.2I SC (13:03)
[2025-03-02] MEDS ORDERED: OMEP40CA4 PO (14:31)
[2025-03-02 16:00] VITALS: BP 144/58; TEMP 97.9; O2SAT 91
== END 2025-03-02 19:30 | disposition home health service (06) | DRG 637 ==
LOC: EDBD 15:39 → M ED 15:39 → M ED INP 22:36 → EEVIPCON 22:36 → M MSPAV 02-27 00:34
PROVIDERS: ADMIT Student in an Organized Health Care Education/Training Program; ATTEND Internal Medicine
DX: E11.65 Type 2 diabetes mellitus with hyperglycemia (principal); G93.41 Metabolic encephalopathy; E87.1 Hypo-osmolality and hyponatremia; N39.0 Urinary tract infection, site not specified; I50.32 Chronic diastolic (congestive) heart failure; I48.91 Unspecified atrial fibrillation; I11.0 Hypertensive heart disease with heart failure; F03.90 Unspecified dementia, unspecified severity, without behavioral disturbance, psychotic disturbance, mood disturbance, and anxiety; K21.9 Gastro-esophageal reflux disease without esophagitis; E87.5 Hyperkalemia; E86.0 Dehydration; T38.3X6A Underdosing of insulin and oral hypoglycemic [antidiabetic] drugs, initial encounter; I25.10 Atherosclerotic heart disease of native coronary artery without angina pectoris; B96.20 Unspecified Escherichia coli [E. coli] as the cause of diseases classified elsewhere; E03.9 Hypothyroidism, unspecified; E78.5 Hyperlipidemia, unspecified; J44.9 Chronic obstructive pulmonary disease, unspecified; J45.909 Unspecified asthma, uncomplicated; E11.42 Type 2 diabetes mellitus with diabetic polyneuropathy; I95.9 Hypotension, unspecified; F32.A Depression, unspecified; F41.9 Anxiety disorder, unspecified; N39.41 Urge incontinence; E66.01 Morbid (severe) obesity due to excess calories; Z95.1 Presence of aortocoronary bypass graft; Z87.891 Personal history of nicotine dependence; Z87.442 Personal history of urinary calculi; Z79.01 Long term (current) use of anticoagulants; Z79.899 Other long term (current) drug therapy; Z79.890 Hormone replacement therapy; Z88.2 Allergy status to sulfonamides; Z88.8 Allergy status to other drugs, medicaments and biological substances; Z85.3 Personal history of malignant neoplasm of breast

== ENCOUNTER → 2025-03-17 | Outpatient (REF) | payer OTHER, MEDICAID ==
[~2025-03-17] MED LIST changes: +ADVA230A INH; +FARX1TAB3 PO; +FOSF3PAC2 PO; +NOVOINJ3 SC; +OMEP40CA4 PO; +OXYB-54 PO; +TIRZ2.5P SQ; +TRUL10IN SC
[2025-03-17 14:33] LABS: BASO # 0.1 10^3/uL (0.0-0.2); BASO % 0.8 % (0.0-1.0); EOS # 0.2 10^3/uL (0.0-0.5); EOS % 2.9 % (0.0-3.0); LYMPH # 1.6 10^3/uL (1.5-5.0); LYMPH % 24.3 % (24.0-44.0); MEAN CORPUSCULAR HGB CONC 31.7 g/dl (32.0-36.5); MEAN CORPUSCULAR VOLUME 91.5 fl (80.0-96.0); MONO # 0.6 10^3/uL (0.0-0.8); NEUTROPHILS # 4.2 10^3/uL (1.5-8.5); NEUTROPHILS % 62.7 % (36.0-66.0); PLATELET COUNT, AUTOMATED 563 10^3/uL (150-450); RED BLOOD COUNT 4.48 10^6/uL (4.00-5.40); WHITE BLOOD COUNT 6.6 10^3/uL (4.0-10.0)
[2025-03-17 14:35] LABS: ALBUMIN 3.5 G/DL (3.2-5.2); BILIRUBIN,TOTAL 0.4 MG/DL (0.3-1.2); CALCIUM LEVEL 9.4 MG/DL (8.3-10.6); CHOLESTEROL RISK RATIO 2.31 (<5); CREATININE FOR GFR 0.71 MG/DL (0.55-1.30); GLOMERULAR FILTRATION RATE 85.9 (>32); HDL CHOLESTEROL 40.1 MG/DL (>40); LDL CHOLESTEROL 39.3 MG/DL (<100); NON-HDL-C 52.9 MG/DL; POTASSIUM SERUM 4.7 MMOL/L (3.5-5.1); TOTAL PROTEIN 6.9 G/DL (5.7-8.2)
[2025-03-17 14:37] LABS: THYROID STIMULATING HORMONE 0.947 uIU/ML (0.55-4.78)
[2025-03-17 14:39] LABS: FREE T4 1.21 NG/DL (0.89-1.76)
[2025-03-17 14:50] LABS: HEMOGLOBIN A1c 13.2 % (4.0-6.0)
[2025-03-17 15:00] LABS: CREATININE, URINE 55.4 MG/DL; MAU/CREAT RATIO 5.4 MCG/MG (0.0-30.0)
== END ==
LOC: M SFHCPLAZ 09:22
PROVIDERS: ATTEND Nurse Practitioner Family
DX: I10 Essential (primary) hypertension (principal); E11.65 Type 2 diabetes mellitus with hyperglycemia; E03.9 Hypothyroidism, unspecified; E78.2 Mixed hyperlipidemia

== ENCOUNTER → 2025-06-02 | Outpatient (CLI) | payer OTHER, MEDICAID ==
[2025-06-02 15:46] LABS: BASO # 0.0 10^3/uL (0.0-0.2); BASO % 0.4 % (0.0-1.0); EOS # 0.2 10^3/uL (0.0-0.5); EOS % 1.9 % (0.0-3.0); LYMPH # 2.1 10^3/uL (1.5-5.0); LYMPH % 25.9 % (24.0-44.0); MONO # 0.7 10^3/uL (0.0-0.8); MONO % 9.0 % (2.0-8.0); NEUTROPHILS # 5.0 10^3/uL (1.5-8.5); NEUTROPHILS % 62.5 % (36.0-66.0); PLATELET COUNT, AUTOMATED 402 10^3/uL (150-450)
[2025-06-02 15:56] LABS: ESTIMATED AVERAGE GLUCOSE 160.0 MG/DL (60-110)
[2025-06-02 16:10] LABS: ALT/SGPT 44.0 U/L (7.0-40); AST/SGOT 49.0 U/L (<34); CALCIUM LEVEL 9.3 MG/DL (8.3-10.6); CARBON DIOXIDE LEVEL 26.0 MMOL/L (20-31); CHLORIDE LEVEL 103.0 MMOL/L (98-107); CREATININE FOR GFR 0.78 MG/DL (0.55-1.30); GLOMERULAR FILTRATION RATE 76.7 (>32); POTASSIUM SERUM 5.2 MMOL/L (3.5-5.1); SODIUM LEVEL 139.0 MMOL/L (136-145)
== END ==
LOC: M PLALAB 12:18
PROVIDERS: ATTEND Nurse Practitioner Family
DX: E11.65 Type 2 diabetes mellitus with hyperglycemia (principal)

== ENCOUNTER → 2025-08-31 | Outpatient (CLI) | payer OTHER ==
[~2025-08-31] MED LIST changes: +BLOO-217; +MAGN250T7 PO; +THERTAB52 PO; +TRUL0.5I SC
== END ==
LOC: M WHC 13:05
PROVIDERS: ATTEND Surgery
DX: R92.323 Mammographic fibroglandular density, bilateral breasts (principal); Z85.3 Personal history of malignant neoplasm of breast
CPT/HCPCS: 77066; G0279

== ENCOUNTER 2025-09-14 14:06 | Outpatient (RCR) | payer OTHER, MEDICAID | END 2025-09-25 | LOC: M PT 14:06 | PROVIDERS: ATTEND Nurse Practitioner Family | DX: I89.0 Lymphedema, not elsewhere classified (principal) ==